=== PATIENT | female | born 1960 | race Two or more races ===

== ENCOUNTER 2020-08-10 00:40 | Emergency (ER) | payer MEDICAID, SELFPAY ==
[2020-08-10 00:56] VITALS: PULSE 84; RESP 75; TEMP 37.2; O2SAT 95; BMI 31.8
[2020-08-10 04:00] VITALS: BP 144/64; PULSE 84; RESP 75; O2SAT 97
[2020-08-10 04:04] LABS: Glucose Urine UA NEG (NEG); Leukocyte Esterase Urine NEG (NEG); Nitrite Urine NEG (NEG); Specific Gravity - Urine >= 1.030 (1.005-1.025); Urine Blood NEG (NEG); Urine Ketones NEG (NEG); Urine Protein NEG (NEG-TRACE)
[2020-08-10 04:09] LABS: Appearance Urine CLEAR; Color Urine YELLOW; UPreg QC Valid YES; Urine Pregnancy NEGATIVE (NEGATIVE)
--- NOTE | 2020-08-10 04:23 | ED_ITS ---
HPI - Female Genitourinary General Chief complaint: Urogenital-Female Stated complaint: hypertension Time Seen by Provider: 08/10/20 02:11 Source: patient Mode of arrival: EMS History of Present Illness HPI Narrative: This is a 60-year-old female who states that she has been having some urinary difficulties since yesterday without associated fevers, chills, nausea, vomiting, chest pain/palpitations. Related Data Allergies Allergy/AdvReac Type Severity Reaction Status Date / Time No Known Allergies Allergy Verified 08/10/20 01:05 [No Known Allergies*] Review of Systems Review of Systems: Pertinent positives and negatives as stated in HPI 10 point review of systems otherwise negative. PMFSH Past Medical History Source: nursing notes reviewed Social History Social History Alcohol intake: unknown Smoking Status: Unknown if ever smoked Use of substances other than those prescribed or required for medical reasons: No Advance Directives: No Advance Directives Information Provided: No Physical Exam Vital Signs: Vital Signs: Last Vital Signs Temp 98.9 F 08/10/20 00:56 Pulse 84 08/10/20 04:00 Resp 75 H 08/10/20 04:00 BP 144/64 H 08/10/20 04:00 Pulse Ox 97 08/10/20 04:00 Body Mass Index 31.8 VITAL SIGNS: Reviewed. GENERAL: Well developed, well nourished, in no acute distress. OROPHARYNX: no oral lesions noted, posterior pharynx clear and non-erythematous without noted tonsillar enlargement/erythema/exudates NECK: Supple, no adenopathy LUNGS: Normal breath sounds. No adventitious sounds or accessory muscle use. SpO2<97> CARDIOVASCULAR: Regular rate and rhythm without noted murmurs, no JVD or lower extremity edema. ABDOMEN: Soft, non-tender, non-distended with bowel sounds. No rigidity. No guarding. No palpable masses or hernias noted NEUROLOGIC: Alert and oriented x 4. Course Course Course Narrative: 60-year-old female with history and clinical presentation suggestive of possible UTI. On review of all investigations there are no acute findings. These results were discussed with the patient at bedside and she was discharged home in stable condition. MDM - Female Genitourinary Lab Data Result diagrams: 08/10/20 05:40 08/10/20 05:40 Labs: Lab Results 08/10/20 08/10/20 08/10/20 Range/Units 03:19 05:40 05:40 WBC 9.0 (4.8-10.8) X10*3/uL RBC 5.35 (4.20-5.50) X10*6/uL Hgb 14.2 (12.0-16.0) g/dl Hct 45.3 (37-47) % MCV 84.7 (80-98) fL MCH 26.5 L (27.0-33.0) pg MCHC 31.3 (31.0-35.0) g/dl RDW 13.8 (11.0-16.0) % Plt Count 282 (160-400) X10*3/uL MPV 9.4 (9.4-12.3) fL Immature Gran % (Auto) 0.1 (0.0-0.4) % Neut % (Auto) 44.6 L (45-73) % Lymph % (Auto) 48.2 H (20-40) % Hart % (Auto) 6.0 (2-11) % Eos % (Auto) 0.9 (0-4) % Baso % (Auto) 0.2 (0-2) % Lymph # (Auto) 4.4 (1.2-4.9) X10*3/uL Hart # (Auto) 0.5 (0.1-1.2) X10*3/uL Eos # (Auto) 0.1 (0.0-0.4) X10*3/uL Baso # (Auto) 0.0 (0.0-0.2) X10*3/uL Abs Immat Gran (auto) 0.01 (0.00-0.03) X10*3/uL Absolute Neuts (auto) 4.0 (2.0-8.3) X10*3/uL Absolute Nucleated RBC 0.000 (0.0-0.012) X10*3/uL Nucleated RBC % (auto) 0.0 (0.0-0.2) /100WBC Sodium 139 (135-145) mmol/L Potassium 4.2 (3.3-5.1) mmol/l Chloride 105 (96-108) mmol/L Carbon Dioxide 28 (22-29) mmol/L Anion Gap 10 L (12-20) BUN 18 H (9-16) mg/dL Creatinine 1.37 (0.5-1.4) mg/dL Estim Creat Clear Calc 35.2 Estimated GFR 40 Random Glucose 142 H (60-115) mg/dL Calcium 9.1 (8.4-10.2) mg/dL Total Bilirubin 0.3 (0.0-1.0) mg/dL AST 15 (5-31) U/L ALT 17 (0-31) U/L Alkaline Phosphatase 141 H (39-117) U/L Total Protein 6.9 (6.5-8.0) g/dL Albumin 3.8 (3.5-5.0) g/dL Urine Color YELLOW Urine Appearance CLEAR Urine pH 6.0 (5.0-8.0) Ur Specific [place] >= 1.030 H (1.005-1.025) Urine Protein NEG (NEG-TRACE) MG/DL Urine Glucose (UA) NEG (NEG) MG/DL Urine Ketones NEG (NEG) MG/DL Urine Blood NEG (NEG) Urine Nitrite NEG (NEG) Ur Leukocyte Esterase NEG (NEG) Urine Test NEGATIVE (NEGATIVE) Discharge Plan Discharge Clinical Impression: Dysuria Patient Disposition: Home, Self-Care Instructions: Dysuria (ED) Additional Instructions: Your evaluated for dysuria here in the emergency department today but your urine was noted to be negative for evidence of infection and your lab work was within normal limits. Please follow-up with your primary care provider for further evaluation outpatient management. Referrals: [facility] [Primary Care Provider] - 2 days (Please re-evaluate and manage for dysuria.) Print Language: Ecuadorean
[2020-08-10 05:48] LABS: Basophils Percent Auto 0.2 % (0-2); Eosinophils Absolute Auto 0.1 X10*3/uL (0.0-0.4); Eosinophils Percent Auto 0.9 % (0-4); Hematocrit 45.3 % (37-47); Hemoglobin 14.2 g/dl (12.0-16.0); Imm Gran Abs Auto 0.01 X10*3/uL (0.00-0.03); Imm Gran Pct Auto 0.1 % (0.0-0.4); Lymphocytes Absolute Auto 4.4 X10*3/uL (1.2-4.9); Lymphocytes Percent Auto 48.2 % (20-40); MANUAL DIFF FLAG NO; Mean Corpuscular HGB Conc 31.3 g/dl (31.0-35.0); Mean Corpuscular Hemoglobin 26.5 pg (27.0-33.0); Mean Corpuscular Volume 84.7 fL (80-98); Mean Platelet Volume 9.4 fL (9.4-12.3); Monocytes Absolute Auto 0.5 X10*3/uL (0.1-1.2); Neutrophils Percent Auto 44.6 % (45-73); Platelet Count 282 X10*3/uL (160-400); Red Blood Count 5.35 X10*6/uL (4.20-5.50); Red Cell Distribution Width 13.8 % (11.0-16.0)
[2020-08-10 06:00] VITALS: BP 150/84; PULSE 63; RESP 15; O2SAT 95
[2020-08-10 06:14] LABS: Alanine Aminotransferase 17 U/L (0-31); Albumin Level 3.8 g/dL (3.5-5.0); Alkaline Phosphatase 141 U/L (39-117); Anion Gap 10 (12-20); Aspartate Amino Transferase 15 U/L (5-31); Bilirubin Total 0.3 mg/dL (0.0-1.0); Blood Urea Nitrogen 18 mg/dL (9-16); Calcium 9.1 mg/dL (8.4-10.2); Carbon Dioxide 28 mmol/L (22-29); Chloride 105 mmol/L (96-108); Creatinine Clr Calc Pharmacy 35.2; Estimated Glomerular Filt Rate 40; Glucose Random 142 mg/dL (60-115); Potassium 4.2 mmol/l (3.3-5.1); Sodium 139 mmol/L (135-145); Total Protein 6.9 g/dL (6.5-8.0)
== END 2020-08-10 07:08 | disposition home or self-care (01) ==
PROVIDERS: Emergency Provider Student in an Organized Health Care Education/Training Program
DX: R30.0 Dysuria (principal)
CPT/HCPCS: 36415; 80053; 81003; 81025; 85025; 99283; 99284

== ENCOUNTER 2020-09-20 04:22 | Emergency (ER) | payer MEDICAID, SELFPAY ==
[2020-09-20 05:27] VITALS: BP 139/84; BP 158/60; PULSE 84; RESP 15; TEMP 37; O2SAT 98; BMI 25.4
[2020-09-20 05:43] VITALS: BP 129/84; PULSE 76; RESP 15; O2SAT 94
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
[2020-09-20 06:59] LABS: COVID-19 Test Negative (Negative); IDNOW Serial# 9DD0AD1C
--- NOTE | 2020-09-20 08:28 | PC.NURSE ---
REPORT FROM [facility] AT [facility]. PT RESTING. AWAITING [facility] DUARTE. TOOK OWN METHADONE THIS AM SUPPLIED BY ASSISTED PER REPORT/PT. ATE BREAKFAST
--- NOTE | 2020-09-20 09:25 | MHC.CARE ---
CARE team called [facility] to inquire if referral was rec and they took referring info and confirmed receipt with plans to see.
[2020-09-20 12:45] VITALS: BP 162/101; PULSE 70; RESP 18; TEMP 35.7
--- NOTE | 2020-09-20 16:47 | MHC.CARE ---
CARE team contacted [facility] re: pt who was referred for evaluation at 9:30 am. [facility] reported that they will not have a clinician available until after 5:30 or later. CARE team will assume responsibility for evaluation pt. [facility] notified [facility]. Urinalysis and Toxicology screen had not been collected yet as of 16:30. Request was that made urine sample be obtained in order to medically clear pt for evaluation.
[2020-09-20 17:11] VITALS: BP 175/100; PULSE 72; RESP 20; TEMP 37.1; O2SAT 98
[2020-09-20 17:17] LABS: Glucose Urine UA 500 MG/DL (NEG); Leukocyte Esterase Urine 1+ (NEG); Nitrite Urine NEG (NEG); Specific Gravity - Urine >= 1.030 (1.005-1.025); UACC Culture Trigger YES; Urine Blood 2+ (NEG); Urine Ketones NEG (NEG); Urine Protein NEG (NEG-TRACE)
[2020-09-20 17:21] LABS: Appearance Urine CLEAR; Color Urine STRAW
[2020-09-20 17:40] LABS: Amphetamine Screen Urine Not Detected (Not Detect); Barbiturates, Urine Not Detected (Not Detect); Benzodiazepines Screen Urine Not Detected (Not Detect); Cannabinoid Screen Urine Not Detected (Not Detect); Cocaine Screen Urine POSITIVE (Not Detect); Opiate Screen Urine POSITIVE (Not Detect); Phencyclidine Screen Urine Not Detected (Not Detect)
[2020-09-20 17:47] LABS: Bacteria Urine 3+ /LPF; Squamous Epithelial Cell Urine 3+ /LPF
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
[2020-09-21 01:14] VITALS: BP 147/78; PULSE 66; RESP 18; TEMP 36; O2SAT 100
[2020-09-21 06:00] VITALS: RESP 16
[2020-09-21 09:18] VITALS: BP 141/92; PULSE 75; TEMP 35.9; O2SAT 96
[2020-09-21 10:29] VITALS: BP 141/92; PULSE 108
--- NOTE | 2020-09-21 10:37 | PC.NURSE ---
methadone confirmed and given, nad, awaiting CARE team to assist w placement in intermediate, pt pleasant and cooperative
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
--- NOTE | 2020-09-21 11:23 | PC.NURSE ---
denies si and states that she would never hurt herself due to religeous reasons and that when she said junior she was feeling hopeless but didn't really mean it
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
== END 2020-09-21 15:13 | disposition home or self-care (01) ==
PROVIDERS: Emergency Provider Emergency Medicine
DX: F33.1 Major depressive disorder, recurrent, moderate (principal); R45.851 Suicidal ideations; I10 Essential (primary) hypertension; Z20.822 Contact with and (suspected) exposure to COVID-19; Z79.899 Other long term (current) drug therapy; Z71.89 Other specified counseling
CPT/HCPCS: 36415; 80307; 81001; 81003; 87086; 87635; 99284; 99285

== ENCOUNTER 2021-04-24 15:28 | Outpatient (REF) | payer MEDICAID, SELFPAY ==
--- NOTE | ~2021-04-24 | XR_ITS ---
EXAMINATION: XR HIP, RIGHT XR RIBS, RIGHT XR THORACIC SPINE CLINICAL INFORMATION: Pleurodynia, back and abdominal pain. Right hip pain. COMPARISON: CT chest of 10/18/2017 TECHNIQUE: AP pelvis and 2 views of the right hip, AP and lateral views of the thoracic spine, frontal view chest with 3 views right ribs. FINDINGS: AP film of the pelvis does not demonstrate any evidence of acute fracture or diastasIs. There is some degenerative change with some sclerosis and spurring of the sacroiliac joints bilaterally but without evidence of fusion or widening. Hip joint spaces appear maintained. There is scoliosis of the lumbar spine, convex left with what appears to be sacralization left side of L5 as well as disc space narrowing L4-L5 and multilevel spurring with facet arthropathy. Two views of the right hip do not demonstrate any evidence of acute fracture or dislocation. Hip joint space is maintained. No abnormal lytic or sclerotic lesions identified. No evidence of femoral head collapse. AP and lateral views of the thoracic spine demonstrate scoliosis, convex right. No definite acute fracture is evident. Marginal spurring is seen. No abnormal paraspinal line bulge is appreciated. Disc spaces appear generally maintained. AP film of the chest does not demonstrate any evidence of acute parenchymal disease, pneumothorax, or pleural effusion. Heart normal size. No evidence of pulmonary edema. Thoracic spine scoliosis, convex right. No acute displaced right rib fracture is appreciated. XR/XR thoracic spine 2V IMPRESSION: Scoliosis of the thoracic and lumbar spine with significant degenerative change of the lumbar spine and with partial sacralization left side of L5. No significant bony abnormality of the AP pelvis and right hip. No acute parenchymal disease within the chest and no displaced rib fracture or destructive bony lesion identified.
--- NOTE | ~2021-04-24 | XR_ITS ---
EXAMINATION: XR HIP, RIGHT XR RIBS, RIGHT XR THORACIC SPINE CLINICAL INFORMATION: Pleurodynia, back and abdominal pain. Right hip pain. COMPARISON: CT chest of 10/18/2017 TECHNIQUE: AP pelvis and 2 views of the right hip, AP and lateral views of the thoracic spine, frontal view chest with 3 views right ribs. FINDINGS: AP film of the pelvis does not demonstrate any evidence of acute fracture or diastasIs. There is some degenerative change with some sclerosis and spurring of the sacroiliac joints bilaterally but without evidence of fusion or widening. Hip joint spaces appear maintained. There is scoliosis of the lumbar spine, convex left with what appears to be sacralization left side of L5 as well as disc space narrowing L4-L5 and multilevel spurring with facet arthropathy. Two views of the right hip do not demonstrate any evidence of acute fracture or dislocation. Hip joint space is maintained. No abnormal lytic or sclerotic lesions identified. No evidence of femoral head collapse. AP and lateral views of the thoracic spine demonstrate scoliosis, convex right. No definite acute fracture is evident. Marginal spurring is seen. No abnormal paraspinal line bulge is appreciated. Disc spaces appear generally maintained. AP film of the chest does not demonstrate any evidence of acute parenchymal disease, pneumothorax, or pleural effusion. Heart normal size. No evidence of pulmonary edema. Thoracic spine scoliosis, convex right. No acute displaced right rib fracture is appreciated. XR/XR ribs RT min 3V w CXR1V IMPRESSION: Scoliosis of the thoracic and lumbar spine with significant degenerative change of the lumbar spine and with partial sacralization left side of L5. No significant bony abnormality of the AP pelvis and right hip. No acute parenchymal disease within the chest and no displaced rib fracture or destructive bony lesion identified.
== END 2021-04-24 15:29 | disposition home or self-care (01) ==
LOC: HO.XRAY 15:28
PROVIDERS: PCP Registered Nurse Community Health; Visit Provider Internal Medicine
DX: R07.81 Pleurodynia (principal); R10.9 Unspecified abdominal pain
CPT/HCPCS: 71101; 72070; 73502

== ENCOUNTER 2021-09-17 10:30 | Emergency (ER) | payer MEDICAID, SELFPAY ==
--- NOTE | ~2021-09-17 | XR_ITS ---
EXAMINATION: X-RAY LUMBAR SPINE X-RAY SACRUM AND COCCYX CLINICAL INFORMATION: Fall, with pain COMPARISON: CT of the abdomen and pelvis 07/12/2019 TECHNIQUE: 3 views of the lumbar spine 3 views of the sacrum and coccyx FINDINGS: There is a left convex curvature of the lumbar spine. No acute fracture or dislocation. There is intervertebral disc space narrowing with endplate osteophytes at L2-L3, L3-L4, and L4-L5. There is facet arthropathy in the lower lumbar spine. No spondylolysis or spondylolisthesis. The sacrum and coccyx are intact without acute fracture or dislocation. The sacroiliac joint spaces are preserved. The paravertebral soft tissues are normal. There are surgical clips in the right upper quadrant from prior cholecystectomy. XR/XR sacrum coccyx min 2V IMPRESSION: No acute bony abnormality of the lumbar spine. Mild to moderate degenerative changes. No acute bony abnormality of the sacrum and coccyx.
--- NOTE | ~2021-09-17 | XR_ITS ---
EXAMINATION: X-RAY LUMBAR SPINE X-RAY SACRUM AND COCCYX CLINICAL INFORMATION: Fall, with pain COMPARISON: CT of the abdomen and pelvis 07/12/2019 TECHNIQUE: 3 views of the lumbar spine 3 views of the sacrum and coccyx FINDINGS: There is a left convex curvature of the lumbar spine. No acute fracture or dislocation. There is intervertebral disc space narrowing with endplate osteophytes at L2-L3, L3-L4, and L4-L5. There is facet arthropathy in the lower lumbar spine. No spondylolysis or spondylolisthesis. The sacrum and coccyx are intact without acute fracture or dislocation. The sacroiliac joint spaces are preserved. The paravertebral soft tissues are normal. There are surgical clips in the right upper quadrant from prior cholecystectomy. XR/XR lumbar spine 2-3V IMPRESSION: No acute bony abnormality of the lumbar spine. Mild to moderate degenerative changes. No acute bony abnormality of the sacrum and coccyx.
[2021-09-17 10:40] VITALS: BP 152/88; PULSE 79; O2SAT 95
[2021-09-17 10:46] VITALS: BP 146/78; PULSE 79; RESP 18; TEMP 36.9; O2SAT 95; BMI 28.9
[2021-09-17] MEDS: Ketorolac Tromethamine 30 MG/ML VIAL IM (11:05)
--- NOTE | 2021-09-17 11:39 | ED_ITS ---
HPI - Back Pain/Injury General Chief Complaint: Back Pain/Injury Stated Complaint: FALL W/BACK PAIN DAYS AGO Time Seen by Provider: 09/17/21 10:39 Source: patient and EMS Mode of arrival: EMS Limitations: no limitations History of Present Illness HPI Narrative: Patient is a 61 year old female presenting to the emergency department today with low back pain. Patient states that yesterday, she was cleaning her windows in her home when she fell back and hit her back against something. Patient states that she always has difficulty walking and uses a walker at her baseline. Patient describes the pain as being low in her back. Patient denies hitting her head in the incident. Patient denies any other injuries from the incident. Patient denies any dizziness, lightheadedness, abdominal pain, nausea, vomiting, fever, chills, blurry vision, double vision, loss of vision, chest pain, difficulty breathing, shortness of breath, night sweats, pain with urination, increased urinary frequency, increased urinary urgency, blood in her urine or stool, syncope or a near syncopal episode, recent trauma or falls, bowel incontinence, bladder incontinence, bowel retention, bladder retention, or any other complaints at this time. MD elicited complaint: back pain, back injury and fall Onset (ago): day(s) Timing: intermittent Similar Symptoms Previously: Yes Quality: dull Location: lumbar spine Radiation: none Exacerbating factors: none Relieving factors: none Context: fall Associated symptoms: denies other symptoms Work related injury: No Related Data Allergies Allergy/AdvReac Type Severity Reaction Status Date / Time No Known Allergies Allergy Verified 09/17/21 10:50 Review of Systems Verdana 4l Constitutional: Verdana 4d Constitutional: Verdana 4d Verdana 4d Reports no additional constitutional complaints, Denies chills, Denies fever(s) and Denies night sweats Verdana 4l Eyes: Verdana 4d Verdana 4d Eyes: Verdana 4d Reports no additional eye complaints, Denies blurry vision, Denies change in vision, Denies diplopia, Denies eye discharge, Denies loss of vision and Denies eye pain Verdana 4l ENT: Verdana 4d Denies dizziness Verdana 4l Cardiovascular: Verdana 4d Cardiovascular: Verdana 4d Verdana 4d Reports no additional cardiovascular complaints, Denies chest pain, Denies lightheadedness, Denies Loss of Consciousness and Denies dyspnea Verdana 4l Respiratory: Verdana 4d Verdana 4d Respiratory: Verdana 4d Reports no additional respiratory complaints and Denies dyspnea Verdana 4l Gastrointestinal: Verdana 4d Gastrointestinal: Verdana 4d Verdana 4d Reports no additional gastrointestinal complaints, Denies abdominal pain, Denies melena, Denies hematochezia, Denies change in bowel habits and Denies change in stool character Verdana 4l Genitourinary: Verdana 4d Verdana 4d Genitourinary: Verdana 4d Denies hematuria, Denies urinary frequency, Denies dysuria, Denies urinary incontinence, Denies urinary hesitancy and Denies urinary urgency Verdana 4l Musculoskeletal: Verdana 4d Musculoskeletal: Verdana 4d Verdana 4d Reports no additional musculoskeletal complaints, Reports abnormal gait (per her baseline of walking with a walker), Reports back pain, Denies numbness and Denies tingling Verdana 4l Neurologic: Verdana 4d Reports abnormal gait (per her baseline of walking with a walker), Denies dizziness, Denies loss of vision, Denies numbness and Denies tingling Verdana 4l Psychiatric: Verdana 4d Verdana 4d Psychiatric: Verdana 4d Reports no additional psychiatric complaints Verdana 4l Endocrine: Verdana 4d Verdana 4d Endocrine: Verdana 4d Reports no additional endocrine complaints Verdana 4l Hematologic/Lymphatic: Verdana 4d Hematologic/Lymphatic: Verdana 4d Verdana 4d Reports no additional hematologic/lymphatic complaints Verdana 4l Allergic/Immunologic: Verdana 4d Allergic/Immunologic: Verdana 4d Verdana 4d Reports no additional allergic/immunologic complaints [facility] Past Medical History Attestation statement: The following information was validated with the patient. Source: old records reviewed Medical History No known health problems Social History Social History Advance Directives: No Advance Directives Information Provided: No Patient : No Physical Exam Verdana 4l Vital Signs: Verdana 4d Verdana 4d Vital Signs: Verdana 4d Verdana 4Bd Last Vital Signs Verdana 4d Wrapper Selector New 4d Wrapper Selector New 4d Temp 98.5 F 09/17/21 10:46 Wrapper Selector New 4d Pulse 79 09/17/21 10:46 New 4d Resp 17 09/17/21 11:47 BP 146/78 H 09/17/21 10:46 Pulse Ox 95 09/17/21 10:46 BMI result Body Mass Index 28.9 Const: General: cooperative, no acute distress, alert and awake Nutritional Appearance: well nourished Orientation/consciousness: patient oriented x3 Limitations: no limitations HENMT: Head: Yes normal to inspection and Yes atraumatic Ears: hearing grossly normal bilaterally and external ears normal General nose exam: Normal external nose present, no nasal discharge noted and no epistaxis Face and sinus: Yes normal facial exam, No abrasion and No laceration Mouth: Normal oral and palatal mucosa present, no drooling and no muffled voice Eyes: General: appearance normal, both eyes and all related structures Periorbital: periorbital findings normal Eyelids: Yes eyelids normal Conjunctivae: conjunctivae normal Pupils: Equal, round and reactive pupils present EOM: EOMs intact bilaterally Neck: Neck: Yes normal visual inspection, Yes full ROM and Yes no lymphadenopathy Chest: Chest palpation & inspection: normal inspection of the chest Resp: Effort & Inspection: normal respiratory effort and able to speak in complete sentences Auscultation: clear to auscultation bilaterally Cardio: Rate: regular rate Rhythm: regular rhythm GI: Inspection: Yes normal to inspection Neuro: General: patient oriented x3 and moves all extremities Cranial nerves: Yes Equal, round and reactive pupils present Cognition (Neuro): normal cognition Motor exam (neuro): 5/5 motor strength present throughout Sensory Exam: Normal double simultaneous stimulation for sensation Coordination: [id number] test normal Extrem: General: Yes normal to inspection, Yes full ROM and Yes capillary refill normal Psych: Appearance: grossly normal Mental Status: mental status grossly normal Affect: normal affect Attitude: cooperative Thought process: Normal thought process present Thought content: Normal thought content present Insight: Good insight present (Psych) MDM - Back Pain/Injury MDM Narrative Medical decision making narrative: Patient is a 61 year old female presenting to the emergency department today with low back pain after a fall. Patient's physical exam was unremarkable. Patient's lumbar and coccyx x-rays showed no acute process. I explained my physical exam findings as well as all test results to the patient. I answered all questions asked by the patient. Patient received IM Toradol which she stated helped her symptoms significantly. I stressed the importance of the patient taking her medication as prescribed. I stressed the importance of the patient following up with her primary care provider. I stressed the importance of the patient returning to the emergency department immediately if her symptoms were to worsen or if she were to develop any dizziness, shortness of breath, difficulty breathing, chest pain, blurry vision, loss of vision, nausea, vomiting, abdominal pain, fever, chills, back pain, or any other complaints. Patient verbalized agreement and understanding with this treatment plan and discharge. Differential Diagnosis Differential diagnosis: Likely strain of lumbar region (lumbar contusion, fall) Medical Records Attestation: I reviewed the patient's medical records. Imaging Data lumbar and coccyx x-rays: Attestation: I personally reviewed and interpreted this imaging study as follows: My impression: No acute fracture in the lumbar or coccyx spine. Radiologist's impression: EXAMINATION: X-RAY LUMBAR SPINE X-RAY SACRUM AND COCCYX CLINICAL INFORMATION: Fall, with pain? COMPARISON: CT of the abdomen and pelvis 07/12/2019? TECHNIQUE: 3 views of the lumbar spine 3 views of the sacrum and coccyx? FINDINGS: There is a left convex curvature of the lumbar spine. No acute fracture or dislocation. There is intervertebral disc space narrowing with endplate osteophytes at L2-L3, L3-L4, and L4-L5. There is facet arthropathy in the lower lumbar spine. No spondylolysis or spondylolisthesis. The sacrum and coccyx are intact without acute fracture or dislocation. The sacroiliac joint spaces are preserved. The paravertebral soft tissues are normal. There are surgical clips in the right upper quadrant from prior cholecystectomy. IMPRESSION: No acute bony abnormality of the lumbar spine. Mild to moderate degenerative changes. ? No acute bony abnormality of the sacrum and coccyx.? Dictated By: LEXIE MICHAELS MD Signed By: Electronically signed by LEXIE MICHAELS MD Discharge Plan Discharge Clinical Impression: Back pain Patient Disposition: Home, Self-Care Instructions: Acute Low Back Pain (ED) Additional Instructions: Follow up with your primary care provider. Return to the emergency department immediately if your symptoms worsen or if you develop any dizziness, shortness of breath, difficulty breathing, chest pain, blurry vision, loss of vision, nausea, vomiting, abdominal pain, fever, chills, back pain, or any other complaints. Referrals: [place],[facility] [Primary Care Provider] - 2 days Interventions: ED Discharge Assessment Last Done: 09/17/21 11:51 Discharge Date/Time: 09/17/21 11:51 Print Language: Bur[place]ian
[2021-09-17 11:47] VITALS: RESP 17
== END 2021-09-17 11:51 | disposition home or self-care (01) ==
PROVIDERS: Emergency Provider Emergency Medicine
DX: M54.50 Low back pain, unspecified (principal); Z79.899 Other long term (current) drug therapy
CPT/HCPCS: 72100; 72220; 96372; 99283; J1885

== ENCOUNTER 2021-11-23 10:11 | Outpatient (REF) | payer MEDICAID, SELFPAY ==
--- NOTE | ~2021-11-23 | XR_ITS ---
EXAMINATION: XR SHOULDER, LEFT CLINICAL INFORMATION: Injury. COMPARISON: No similar priors. TECHNIQUE: Three views of the left shoulder. FINDINGS: No fracture. Glenohumeral and acromioclavicular alignment is anatomic with normal joint space. No abnormal soft tissue calcifications. Partially imaged interstitial thickening in the lungs, best described on simultaneous chest radiograph. XR/XR shoulder LT min 2V IMPRESSION: Normal left shoulder.
--- NOTE | ~2021-11-23 | XR_ITS ---
EXAMINATION: XR TIBIA AND FIBULA, LEFT CLINICAL INFORMATION: Injury. COMPARISON: None. TECHNIQUE: AP and lateral views of the left tibia and fibula were obtained. FINDINGS: The bones and soft tissues are normal. No fracture. No osseous lesions. XR/XR tibia fibula LT 2V IMPRESSION: Normal left tibia and fibula.
--- NOTE | ~2021-11-23 | XR_ITS ---
EXAMINATION: XR RIBS, LEFT CLINICAL INFORMATION: Injury. COMPARISON: Chest radiograph dated from 04/24/2021. TECHNIQUE: 3 views of the left ribs were obtained. FINDINGS: Stable appearance of the cardiomediastinal silhouette and chronic interstitial thickening. No discrete new focal airspace opacities, pleural effusions or pneumothorax. No evidence of acutely displaced rib fractures. Right upper quadrant surgical clips. XR/XR ribs LT min 3V w CXR1V IMPRESSION: Chronic interstitial thickening. No acute cardiopulmonary findings. No evidence of acutely displaced rib fractures.
== END 2021-11-23 10:12 | disposition home or self-care (01) ==
LOC: HO.XRAY 10:11
PROVIDERS: Absent Provider Registered Nurse Community Health; PCP Registered Nurse Community Health; Visit Provider Emergency Medicine
DX: S29.9XXA Unspecified injury of thorax, initial encounter (principal); S49.92XA Unspecified injury of left shoulder and upper arm, initial encounter; S89.92XA Unspecified injury of left lower leg, initial encounter
CPT/HCPCS: 71101; 73030; 73590

== ENCOUNTER 2022-02-17 23:21 | Emergency (ER) | payer MEDICAID, SELFPAY ==
--- NOTE | 2022-02-18 00:30 | PC.NURSE ---
pt not seen in the waiting room. 2 calls for pt and not present both times in the ed.
[2022-02-18 00:32] VITALS: BMI 21.9
== END 2022-02-18 01:30 | disposition left against medical advice (07) ==
PROVIDERS: Emergency Provider Emergency Medicine
DX: M54.42 Lumbago with sciatica, left side (principal)
CPT/HCPCS: 99281

== ENCOUNTER 2022-02-28 01:27 | Emergency (ER) | payer MEDICAID, SELFPAY ==
--- NOTE | ~2022-02-28 | XR_ITS ---
EXAMINATION: XR CHEST CLINICAL INFORMATION: Chest pain COMPARISON: 11/23/2021 TECHNIQUE: Frontal view of the chest was obtained. FINDINGS: Lung volumes are symmetric. Mild streaky bibasilar opacities favor atelectasis. No additional consolidation is seen. No evidence of pneumothorax, pleural effusion, or pulmonary edema. Cardiac size is within normal limits. Calcification is present at the aortic arch. No acute osseous findings are seen. XR/XR chest 1V IMPRESSION: Subsegmental bibasilar atelectasis.
--- NOTE | ~2022-02-28 | CT_ITS ---
EXAMINATION: CT HEAD WITHOUT CONTRAST CLINICAL INFORMATION: High blood pressure COMPARISON: 10/18/2017 TECHNIQUE: Contiguous axial imaging was performed from the skull base to vertex without intravenous administration of contrast. This CT examination was performed using dose optimization techniques as appropriate, variously including the following: *Automated exposure control *Adjustment of mA and/or kV according to patient size (this includes techniques or standardized protocols for targeted exams where dose is matched to indication/reason for exam; i.e. extremities or head) *Use of iterative reconstruction technique DLP: 757 mGy-cm FINDINGS: There is no evidence of acute intracranial hemorrhage or territorial infarction. No abnormal mass effect or midline shift is seen. [place] to white matter differentiation is well preserved. No extra-axial fluid collections are identified. The ventricles are normal in size. There is mild to moderate periventricular white matter hypoattenuation consistent with chronic small vessel ischemic disease. The osseous structures and soft tissues are normal. The mastoid air cells and visualized portions of the paranasal sinuses are well aerated. CT/CT head/brain wo con IMPRESSION: No acute intracranial pathology.
[2022-02-28 01:36] VITALS: BP 149/76; BP 156/100; PULSE 80; PULSE 96; RESP 18; TEMP 36.8; O2SAT 96; O2SAT 97; BMI 24.7
--- NOTE | 2022-02-28 01:41 | ECG_ITS ---
Test Reason : chest pain Blood Pressure : / mmHG Vent. Rate : 076 BPM Atrial Rate : 076 BPM P-R Int : 132 ms QRS Dur : 082 ms QT Int : 412 ms P-R-T Axes : 049 047 042 degrees QTc Int : 463 ms Normal sinus rhythm Minimal voltage criteria for LVH, may be normal variant ( Sokolow-Viveros ) Borderline ECG When compared with ECG of 17-NOV-2019 10:32, No significant change was found Referred By: Generic ED Physician Electronically Signed By:Praveen Nicole
[2022-02-28 02:20] LABS: Basophils Percent Auto 0.3 % (0-2); Eosinophils Absolute Auto 0.1 X10*3/uL (0.0-0.4); Eosinophils Percent Auto 0.8 % (0-4); Hematocrit 43.5 % (37.0-47.0); Hemoglobin 13.8 g/dl (12.0-16.0); Imm Gran Abs Auto 0.02 X10*3/uL (0.00-0.03); Imm Gran Pct Auto 0.2 % (0.0-0.4); Lymphocytes Absolute Auto 3.9 X10*3/uL (1.2-4.9); Lymphocytes Percent Auto 43.4 % (20-40); MANUAL DIFF FLAG NO; Mean Corpuscular HGB Conc 31.7 g/dl (31.0-35.0); Mean Corpuscular Hemoglobin 26.8 pg (27.0-33.0); Mean Corpuscular Volume 84.5 fL (80.0-98.0); Mean Platelet Volume 9.1 fL (9.4-12.3); Monocytes Absolute Auto 0.6 X10*3/uL (0.1-1.2); Monocytes Percent Auto 6.1 % (2-11); Neutrophils Absolute Auto 4.4 x10*3/uL (2.0-8.3); Neutrophils Percent Auto 49.2 % (45-73); Platelet Count 267 X10*3/uL (160-400); Red Blood Count 5.15 X10*6/uL (4.20-5.50); Red Cell Distribution Width 13.4 % (11.0-16.0)
[2022-02-28 02:35] LABS: Anion Gap 14 (12-20); Blood Urea Nitrogen 19 mg/dL (9-16); Calcium 9.4 mg/dL (8.4-10.2); Carbon Dioxide 20 mmol/L (22-29); Chloride 113 mmol/L (96-108); Creatinine Clr Calc Pharmacy 37.3; Estimated Glomerular Filt Rate 42; Glucose Random 133 mg/dL (60-115); Potassium 4.2 mmol/L (3.3-5.1); Sodium 143 mmol/L (135-145)
--- NOTE | 2022-02-28 03:57 | ED.CHESTPAIN ---
HPI - Chest Pain General Chief Complaint: Chest Pain Stated Complaint: cp Time Seen by Provider: 02/28/22 03:40 Source: patient Mode of arrival: ambulatory Limitations: no limitations History of Present Illness HPI narrative: Patient comes to the emergency room complaining of a headache, states she has had chest pain for 11 hours. When I spoke to the patient, patient denies any chest pain or shortness of breath. Patient complaining of headache, states she has not taking any medications. Patient states that she takes her medication at home, takes lisinopril 40 mg daily, states that she is compliant with her meds. Before arrival, patient states her blood pressure was above 160 systolic. Patient became concerned and came to the emergency room. Related Data Home Medications Medication Instructions Recorded Confirmed lisinopril 40 mg PO DAILY 09/20/20 09/20/20 Allergies Allergy/AdvReac Type Severity Reaction Status Date / Time No Known Allergies Allergy Verified 02/23/22 12:45 [No Known Allergies*] Review of Systems Review of Systems: Constitutional : No Weight loss, No Fever, No Chills, No Night Sweats, No Fatigue, No Malaise ENT/Mouth : No Hearing loss, No Ear Pain, No Nasal Congestion, No Sinus Pain, No Hoarseness, No sore throat, No Rhinorrhea, No Swallowing Difficulty Eyes: No Eye Pain, No Swelling, No Redness, No Foreign Body, No Discharge, No Vision Changes Cardiovascular : Complaining of chest pain/pressure that self-resolved,, No SOB, No Dyspnea on Exertion, No Orthopnea, No Edema, No Palpitations Respiratory : No Cough, No Sputum, No Wheezing, No Smoke Exposure, No Dyspnea Gastrointestinal : No Nausea, No Vomiting, No Diarrhea, No Constipation, No abdominal Pain, No Hematochezia, No Melena Genitourinary : no irregular bleeding, No Dysuria, No Urinary Frequency, No Hematuria, No Urinary Incontinence, No Urgency, No Flank Pain, No Urinary Flow Changes, No Hesitancy Musculoskeletal : No joint pain, No Myalgias, No Joint Swelling Skin : No Skin Lesions, No rash Neuro : No Weakness, No Numbness, No Paresthesias, No Loss of Consciousness, No Dizziness, complaining of Headache Psych : No Anxiety/Panic, No Depression, No SI/HI/AH/VH, No Social Issues, Heme/Lymph: No Bruising, No Bleeding,No Lymphadenopathy Endocrine : No Polyuria, No Polydipsia, No Temperature Intolerance [facility] Past Medical History Medical History Borderline diabetes Hypertension No known health problems Substance abuse Social History Social History (System 02/23/22 @ 12:45 by Marline Tran) Alcohol intake: unknown Advance Directives: No Physical Exam Vital Signs: Vital Signs: Last Vital Signs Temp 98.3 F 02/28/22 01:36 Pulse 80 02/28/22 01:36 Resp 18 02/28/22 01:36 BP 149/76 H 02/28/22 01:36 Pulse Ox 97 02/28/22 01:36 O2 Del Method 02/28/22 01:36 BMI result Body Mass Index 24.7 Const: Other: Appearance: Alert. Oriented X3. No acute distress. Somnolent, easily arousable Eyes: Pupils equal, round and reactive to light. Seems to have photophobia ENT: Pharynx normal. Neck: Normal inspection. Neck supple. No lymph nodes noted. No crepitus CVS: Normal heart rate and rhythm. Pulses normal. Normal S1 and S2 Respiratory: No respiratory distress. Breath sounds normal. No Wheezing. No rales Abdomen: Soft and nontender. No rigidity. No distention. Skin: Skin warm and dry. Normal skin color. Normal skin turgor. Extremities: No lower extremity edema. No Lacerations. No Rash Neuro: Oriented X 3. No motor deficit. No sensory deficit. Moving all extremities. No slurred speech. CN 2 through 12 grossly intact Psych: calm, cooperative, normal affect Course Course Course Narrative: EKG, troponin negative. Patient no longer having any chest pain. Now, patient complaining of a headache. Head CT pending. Repeat EKG within normal limits. CT scan did not show any acute pathology. Headache was treated with Reglan and IV Toradol. Patient is comfortably, sleeping MDM - Chest Pain Lab Data Result diagrams: 02/28/22 02:15 02/28/22 02:15 Labs: Lab Results 02/28/22 02/28/22 02/28/22 Range/Units 02:15 02:15 02:15 WBC 9.0 (4.8-10.8) X10*3/uL RBC 5.15 (4.20-5.50) X10*6/uL Hgb 13.8 (12.0-16.0) g/dl Hct 43.5 (37.0-47.0) % MCV 84.5 (80.0-98.0) fL MCH 26.8 L (27.0-33.0) pg MCHC 31.7 (31.0-35.0) g/dl RDW 13.4 (11.0-16.0) % Plt Count 267 (160-400) X10*3/uL MPV 9.1 L (9.4-12.3) fL Immature Gran % (Auto) 0.2 (0.0-0.4) % Neut % (Auto) 49.2 (45-73) % Lymph % (Auto) 43.4 H (20-40) % [place] % (Auto) 6.1 (2-11) % Eos % (Auto) 0.8 (0-4) % Baso % (Auto) 0.3 (0-2) % Lymph # (Auto) 3.9 (1.2-4.9) X10*3/uL [place] # (Auto) 0.6 (0.1-1.2) X10*3/uL Eos # (Auto) 0.1 (0.0-0.4) X10*3/uL Baso # (Auto) 0.0 (0.0-0.2) X10*3/uL Abs Immat Gran (auto) 0.02 (0.00-0.03) X10*3/uL Absolute Neuts (auto) 4.4 (2.0-8.3) x10*3/uL Absolute Nucleated RBC 0.000 (0.0-0.012) X10*3/uL Nucleated RBC % (auto) 0.0 (0.0-0.2) /100WBC Sodium 143 (135-145) mmol/L Potassium 4.2 (3.3-5.1) mmol/L Chloride 113 H (96-108) mmol/L Carbon Dioxide 20 L (22-29) mmol/L Anion Gap 14 (12-20) BUN 19 H (9-16) mg/dL Creatinine 1.29 (0.5-1.4) mg/dL Estim Creat Clear Calc 37.3 Estimated GFR 42 Random Glucose 133 H (60-115) mg/dL Calcium 9.4 (8.4-10.2) mg/dL Troponin I High Sens 5.0 (<3.5-17.0) ng/L Imaging Data Head CT: Radiologist's impression: FINDINGS: There is no evidence of acute intracranial hemorrhage or territorial infarction. No abnormal mass effect or midline shift is seen. [place] to white matter differentiation is well preserved. No extra-axial fluid collections are identified. The ventricles are normal in size. There is mild to moderate periventricular white matter hypoattenuation consistent with chronic small vessel ischemic disease. The osseous structures and soft tissues are normal. The mastoid air cells and visualized portions of the paranasal sinuses are well aerated. ? CT/CT head/brain wo con IMPRESSION: No acute intracranial pathology. Discharge Plan Discharge Clinical Impression: Atypical chest pain, Headache Patient Disposition: Home, Self-Care Instructions: Chest Pain (ED), Acute Headache (ED) Additional Instructions: Please follow-up with your primary care physician tomorrow. If you have any worsening or new symptoms, please return to the emergency room or call 911 Prescriptions: No Action lisinopril 40 mg PO DAILY
[2022-02-28] MEDS: Metoclopramide HCl 10 MG/2 ML VIAL IVPUSH (04:32)
--- NOTE | 2022-02-28 05:00 | ECG_ITS ---
Test Reason : CHEST PAIN Blood Pressure : / mmHG Vent. Rate : 075 BPM Atrial Rate : 075 BPM P-R Int : 144 ms QRS Dur : 082 ms QT Int : 424 ms P-R-T Axes : 049 041 042 degrees QTc Int : 473 ms Normal sinus rhythm Possible Left atrial enlargement Borderline ECG When compared with ECG of 28-FEB-2022 01:49, No significant change was found Referred By: Bernice Lopez Electronically Signed By:Praveen Nicole
--- NOTE | 2022-02-28 05:01 | PC.NURSE ---
Pt. c/o increased left sided chest pain. Denies SOB. Provider notified, repeat EKG ordered and completed. Pt. now asleep an intermittently snoring.
[2022-02-28] MEDS: Ketorolac Tromethamine 30 MG/ML VIAL IVPUSH (05:12)
[2022-02-28 05:19] VITALS: BP 168/96; PULSE 77; RESP 16; O2SAT 97
== END 2022-02-28 05:55 | disposition home or self-care (01) ==
PROVIDERS: Emergency Provider Emergency Medicine
DX: R07.89 Other chest pain (principal); R51.9 Headache, unspecified; I10 Essential (primary) hypertension; Z79.899 Other long term (current) drug therapy
CPT/HCPCS: 36415; 70450; 71045; 80048; 84484; 85025; 93005; 96374; 96375; 99284; J1885; J2765

== ENCOUNTER 2022-09-11 20:03 | Inpatient (IN) | payer MEDICAID, SELFPAY ==
--- NOTE | ~2022-09-11 | CT_ITS ---
EXAMINATION: CT HEAD WITHOUT CONTRAST (STROKE PROTOCOL) CLINICAL INFORMATION: Stroke protocol. COMPARISON: CT head 02/28/2022 TECHNIQUE: Contiguous axial imaging was performed from the skull base to vertex without intravenous administration of contrast. This CT examination was performed using dose optimization techniques as appropriate, variously including the following: *Automated exposure control *Adjustment of mA and/or kV according to patient size (this includes techniques or standardized protocols for targeted exams where dose is matched to indication/reason for exam; i.e. extremities or head) *Use of iterative reconstruction technique DLP: 714 mGy-cm. FINDINGS: There is no evidence of acute intracranial hemorrhage or territorial infarction. No abnormal mass-effect or midline shift is seen. [place] to white matter differentiation is well preserved. No extra-axial fluid collections are identified. There is mild to moderate periventricular white matter hypoattenuation consistent with chronic small vessel ischemic disease. There is no osseous abnormality. The mastoid air cells and visualized portions of the paranasal sinuses are well-aerated. CT/CT head for stroke IMPRESSION: No acute intracranial pathology. This critical result was discussed with Dr. Jamil at 2048 hours on 09/11/2022. It was ascertained that the content and urgency of the report was understood at the time of direct communication.
--- NOTE | ~2022-09-11 | MR_ITS ---
EXAMINATION: MR BRAIN WITHOUT CONTRAST CLINICAL INFORMATION: Stroke or right-sided weakness COMPARISON: None. TECHNIQUE: MRI of the brain was obtained using routine sequences without contrast. FINDINGS: Motion degraded examination compromising diagnostic assessment. There is an acute infarct within the lateral left thalamus/posterior limb of the left internal capsule. Extensive patchy and confluent T2 hyperintense foci within the subcortical and periventricular white matter, including along the left greater than right external capsules, and brainstem are nonspecific but may reflect sequelae of marked chronic microvascular ischemia. 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 Chronic lacunar infarcts within the bilateral deep zepeda nuclei and slava. No acute intracranial hemorrhage or extra-axial fluid collection. Mild generalized parenchymal volume loss with prominence of the bilateral ventricular trigones, likely on an ex vacuo basis. No mass lesion, mass effect, or herniation pattern. Normal intracranial arterial and dural venous sinus flow voids. Normal appearance of the midline structures. The orbits are grossly unremarkable. The paranasal sinuses and mastoids are well aerated. Normal marrow signal. MR/MR head/brain wo con IMPRESSION: Acute infarct within the lateral left thalamus/posterior limb of the left internal capsule. Mild volume loss. Extensive white matter disease greater than expected for patient age above may reflect severe chronic microangiopathy. Multiple lacunar infarcts. Right-sided Wallerian degeneration.
--- NOTE | ~2022-09-11 | CT_ITS ---
EXAMINATION: CTA OF THE HEAD AND NECK CLINICAL INFORMATION: Right-sided weakness. COMPARISON: Head CT on 09/11/2022. TECHNIQUE: Test bolus sequences followed by intravenous administration 70 mL of Omnipaque 350. Helical imaging was performed in the axial plane from the mediastinum to the skull vertex. Delayed postcontrast imaging of the head was also performed. The data was processed at the interventional radiology technologist's workstation for generation of MIP sequences. Three-dimensional volume rendered reformatted images were also generated at an offline 3-D workstation. Stenoses are assessed in accordance with NASCET criteria unless otherwise indicated. This CT examination was performed using dose optimization techniques as appropriate, variously including the following: *Automated exposure control *Adjustment of mA and/or kV according to patient size (this includes techniques or standardized protocols for targeted exams where dose is matched to indication/reason for exam; i.e. extremities or head) *Use of iterative reconstruction technique DLP: 1521 mGy-cm. FINDINGS: CTA neck: The imaged aortic arch and origins of the great vessels are normal. The common carotid arteries are widely patent. The carotid bifurcations are normal. The cervical internal carotid arteries are normal. The vertebral arteries opacify normally and are of normal caliber. The soft tissues of the neck are unremarkable. The left maxillary sinus is atelectatic but aerated. The imaged portions of the lungs are relatively clear with mild subsegmental atelectatic changes in the anterior left upper lobe. There are [id number] emphysematous changes in the lungs. CTA head: The intradural vertebral arteries and basilar artery are normal. The posterior cerebral arteries are widely patent. The internal carotid arteries are of normal caliber. The ELIZABETH and MCA vascular complexes bilaterally are normal. There is no abnormal parenchymal or leptomeningeal enhancement. The venous sinuses opacify normally. CT/CT angio head neck stroke IMPRESSION: Normal CT angiogram of the head and neck.
[2022-09-11 20:07] VITALS: BP 191/108; PULSE 80; RESP 18; TEMP 36.6; O2SAT 98; BMI 33.0
[2022-09-11 20:20] LABS: Glucose, Whole Blood 152 mg/dL (60-115)
--- NOTE | 2022-09-11 20:20 | ECG_ITS ---
Test Reason : CP Blood Pressure : / mmHG Vent. Rate : 071 BPM Atrial Rate : 071 BPM P-R Int : 142 ms QRS Dur : 082 ms QT Int : 396 ms P-R-T Axes : 040 026 020 degrees QTc Int : 430 ms Normal sinus rhythm Minimal voltage criteria for LVH, may be normal variant ( Sokolow-Viveros ) Borderline ECG When compared with ECG of 28-FEB-2022 04:53, No significant change was found Referred By: Melissa Jamil Electronically Signed By:Praveen Nicole
--- NOTE | 2022-09-11 20:26 | ED_ITS ---
HPI - Neuro Symptoms/Deficit General Chief Complaint: Stroke Stated Complaint: stroke? Time Seen by Provider: 09/11/22 20:20 History of Present Illness HPI Narrative: Patient is a 62-year-old female with a history of hypertension. Borderline diabetes, question high cholesterol presents today with having last known well time being 5-6 p.m. yesterday. Patient at that time was cooking. Subsequently patient went to bed and when she woke up this morning he had weakness to the right side of the face and also some clumsiness to her right hand. Feels her speech is different. Patient came to the ED for further evaluation. Previous history of polysubstance abuse. Patient is currently on methadone. Denies using other types of recreational drugs. Denies any history of [place] in the past. Related Data Home Medications Medication Instructions Recorded Confirmed lisinopril 40 mg PO DAILY 09/20/20 09/20/20 Allergies Allergy/AdvReac Type Severity Reaction Status Date / Time No Known Allergies Allergy Verified 02/23/22 12:45 [No Known Allergies*] Review of Systems Review of Systems: Positive right face weakness positive right arm weakness positive clumsiness positive slight change in speech PMFSH Past Medical History Attestation statement: The following information was validated with the patient. Medical History Borderline diabetes Hypertension No known health problems Substance abuse Social History Social History Alcohol intake: unknown Advance Directives: No Advance Directives Information Provided: No Physical Exam Vital Signs: Vital Signs: Last Vital Signs Temp 97.8 F 09/11/22 20:07 Pulse 80 09/11/22 20:07 Resp 18 09/11/22 20:07 BP 191/108 H 09/11/22 20:07 Pulse Ox 98 09/11/22 20:07 O2 Del Method 09/11/22 20:07 BMI result Body Mass Index 33.0 Appearance: Alert. Oriented X3. No acute distress. Eyes: Pupils equal, round and reactive to light. ENT: Pharynx normal. Neck: Normal inspection. Neck supple. No lymph nodes noted. No crepitus CVS: Normal heart rate and rhythm. Pulses normal. Normal S1 and S2 Respiratory: No respiratory distress. Breath sounds normal. No Wheezing. No rales Abdomen: Soft and nontender. No rigidity. No distention. good BS x4 Skin: Skin warm and dry. Normal skin color. Normal skin turgor. Extremities: No lower extremity edema. Neurovascular intact to all extremities. No Lacerations. No Rash Neuro: Oriented X 3. Positive facial droop on the right side. Positive slightly dysarthric, finger to nose off on the right side. No sensory deficit. Moving all extermities. Slight weakness on movement of the right upper extremity Medications Administered Discontinued Medications Generic Name Dose Route Start Last Admin Trade Name Freq PRN Reason Stop Dose Admin Iohexol 100 ml 09/11/22 20:52 09/11/22 20:52 Iohexol 350 Mg/Ml 100 Ml Infus..Btl IV 09/11/22 20:53 70 ml ONCE ONE Administration Medical Decision Making Medical Decision Making [facility] Narrative: Patient presented today with having right-sided weakness patient complaining of right hand weakness right facial weakness slurred speech CT scan of the head was grossly negative for any acute evidence of bleeding. No mass. No fracture. CTA did not show any large vessel occlusion. Patient's last known well time was yesterday at 18:00. Given this finding. Patient is not a candidate for tPA. NIH stroke scale is a 3. Patient's case discussed with the hospitalist team. Will admit for further evaluation. Currently in stable condition. Differential Diagnosis Differential Diagnoses: The differential diagnosis associated with the presentat ion includes Hypoglycemia, stroke, mass, bleed Admission/Observation Consideration of admission/observation: Escalation of care including admission/observation considered Consult Healthcare Provider Management of the patient was discussed with: Hospitalist Lab Data [facility] Lab Attestation statement: I reviewed the patient's lab results. 09/11/22 20:26 09/11/22 20:26 Labs: Lab Results 09/11/22 09/11/22 09/11/22 Range/Units 20:17 20:26 20:26 WBC 11.5 H (4.8-10.8) X10*3/uL RBC 5.64 H (4.20-5.50) X10*6/uL Hgb 14.6 (12.0-16.0) g/dl Hct 47.4 H (37.0-47.0) % MCV 84.0 (80.0-98.0) fL MCH 25.9 L (27.0-33.0) pg MCHC 30.8 L (31.0-35.0) g/dl RDW 13.8 (11.0-16.0) % Plt Count 282 (160-400) X10*3/uL MPV 9.2 L (9.4-12.3) fL Immature Gran % (Auto) 0.2 (0.0-0.4) % Neut % (Auto) 63.2 (45-73) % Lymph % (Auto) 30.3 (20-40) % [place] % (Auto) 5.7 (2-11) % Eos % (Auto) 0.3 (0-4) % Baso % (Auto) 0.3 (0-2) % Lymph # (Auto) 3.5 (1.2-4.9) X10*3/uL [place] # (Auto) 0.7 (0.1-1.2) X10*3/uL Eos # (Auto) 0.0 (0.0-0.4) X10*3/uL Baso # (Auto) 0.0 (0.0-0.2) X10*3/uL Abs Immat Gran (auto) 0.02 (0.00-0.03) X10*3/uL Absolute Neuts (auto) 7.3 (2.0-8.3) x10*3/uL Absolute Nucleated RBC 0.000 (0.0-0.012) X10*3/uL Nucleated RBC % (auto) 0.0 (0.0-0.2) /100WBC PT 10.0 (10.0-13.1) SEC Whole Blood PT (11.1-13.5) sec INR 0.9 (0.9-1.1) Whole Blood INR (0.9-1.1) APTT 32.3 (26.0-36.4) SEC Sodium (135-145) mmol/L Potassium (3.3-5.1) mmol/L Chloride (96-108) mmol/L Carbon Dioxide (22-29) mmol/L Anion Gap (12-20) BUN (9-16) mg/dL Creatinine (0.5-1.4) mg/dL Estim Creat Clear Calc Estimated GFR POC Glucose 152 H (60-115) mg/dL Random Glucose (60-115) mg/dL Calcium (8.4-10.2) mg/dL Phosphorus (2.7-4.5) mg/dL Magnesium (1.6-2.6) mg/dL Total Creatine Kinase (26-140) U/L Troponin I High Sens (<3.5-17.0) ng/L Ethyl Alcohol mg/dL Influenza Type A (PCR) (Negative) Influenza Type B (PCR) (Negative) RSV RNA Qual (PCR) (Negative) SARS-CoV-2 RNA (RT-PCR) (Negative) 09/11/22 09/11/22 09/11/22 Range/Units 20:26 20:26 20:26 WBC (4.8-10.8) X10*3/uL RBC (4.20-5.50) X10*6/uL Hgb (12.0-16.0) g/dl Hct (37.0-47.0) % MCV (80.0-98.0) fL MCH (27.0-33.0) pg MCHC (31.0-35.0) g/dl RDW (11.0-16.0) % Plt Count (160-400) X10*3/uL MPV (9.4-12.3) fL Immature Gran % (Auto) (0.0-0.4) % Neut % (Auto) (45-73) % Lymph % (Auto) (20-40) % [place] % (Auto) (2-11) % Eos % (Auto) (0-4) % Baso % (Auto) (0-2) % Lymph # (Auto) (1.2-4.9) X10*3/uL [place] # (Auto) (0.1-1.2) X10*3/uL Eos # (Auto) (0.0-0.4) X10*3/uL Baso # (Auto) (0.0-0.2) X10*3/uL Abs Immat Gran (auto) (0.00-0.03) X10*3/uL Absolute Neuts (auto) (2.0-8.3) x10*3/uL Absolute Nucleated RBC (0.0-0.012) X10*3/uL Nucleated RBC % (auto) (0.0-0.2) /100WBC PT (10.0-13.1) SEC Whole Blood PT (11.1-13.5) sec INR (0.9-1.1) Whole Blood INR (0.9-1.1) APTT (26.0-36.4) SEC Sodium 139 (135-145) mmol/L Potassium 4.6 (3.3-5.1) mmol/L Chloride 105 (96-108) mmol/L Carbon Dioxide 25 (22-29) mmol/L Anion Gap 14 (12-20) BUN 25 H (9-16) mg/dL Creatinine 1.00 (0.5-1.4) mg/dL Estim Creat Clear Calc 37.1 Estimated GFR 57 POC Glucose (60-115) mg/dL Random Glucose 108 (60-115) mg/dL Calcium 10.2 D (8.4-10.2) mg/dL Phosphorus 3.2 (2.7-4.5) mg/dL Magnesium 2.1 (1.6-2.6) mg/dL Total Creatine Kinase 214 H (26-140) U/L Troponin I High Sens < 3.5 (<3.5-17.0) ng/L Ethyl Alcohol < 10 mg/dL Influenza Type A (PCR) NEGATIVE (Negative) Influenza Type B (PCR) NEGATIVE (Negative) RSV RNA Qual (PCR) NEGATIVE (Negative) SARS-CoV-2 RNA (RT-PCR) NEGATIVE (Negative) 09/11/22 Range/Units 20:30 WBC (4.8-10.8) X10*3/uL RBC (4.20-5.50) X10*6/uL Hgb (12.0-16.0) g/dl Hct (37.0-47.0) % MCV (80.0-98.0) fL MCH (27.0-33.0) pg MCHC (31.0-35.0) g/dl RDW (11.0-16.0) % Plt Count (160-400) X10*3/uL MPV (9.4-12.3) fL Immature Gran % (Auto) (0.0-0.4) % Neut % (Auto) (45-73) % Lymph % (Auto) (20-40) % [place] % (Auto) (2-11) % Eos % (Auto) (0-4) % Baso % (Auto) (0-2) % Lymph # (Auto) (1.2-4.9) X10*3/uL [place] # (Auto) (0.1-1.2) X10*3/uL Eos # (Auto) (0.0-0.4) X10*3/uL Baso # (Auto) (0.0-0.2) X10*3/uL Abs Immat Gran (auto) (0.00-0.03) X10*3/uL Absolute Neuts (auto) (2.0-8.3) x10*3/uL Absolute Nucleated RBC (0.0-0.012) X10*3/uL Nucleated RBC % (auto) (0.0-0.2) /100WBC PT (10.0-13.1) SEC Whole Blood PT 12.1 (11.1-13.5) sec INR (0.9-1.1) Whole Blood INR 1.0 (0.9-1.1) APTT (26.0-36.4) SEC Sodium (135-145) mmol/L Potassium (3.3-5.1) mmol/L Chloride (96-108) mmol/L Carbon Dioxide (22-29) mmol/L Anion Gap (12-20) BUN (9-16) mg/dL Creatinine (0.5-1.4) mg/dL Estim Creat Clear Calc Estimated GFR POC Glucose (60-115) mg/dL Random Glucose (60-115) mg/dL Calcium (8.4-10.2) mg/dL Phosphorus (2.7-4.5) mg/dL Magnesium (1.6-2.6) mg/dL Total Creatine Kinase (26-140) U/L Troponin I High Sens (<3.5-17.0) ng/L Ethyl Alcohol mg/dL Influenza Type A (PCR) (Negative) Influenza Type B (PCR) (Negative) RSV RNA Qual (PCR) (Negative) SARS-CoV-2 RNA (RT-PCR) (Negative) Independent Interpretation I performed an independent interpretation of an: EKG Interpretation: Patient's EKG showed a sinus pattern heart rate is 70 [place] QRS QT within normal limits there is no acute ST segment elevation noted. External Record Review External record reviewed: Inpatient record Chronic Conditions Patient?s care impacted by: Diabetes and Hypertension Social Determinants Patient?s care significantly limited by Social Determinants of Health including: Problems related to primary support group NIH Stroke Scale Internal: Initial- Upon Arrival Time: 20:32 Level of Consciousness: Alert Level of Consciousness Questions: Answers both questions correctly Level of Consciousness Commands: Performs both tasks correctly Best Gaze: Normal Visual: No visual loss Facial Palsy: Minor paralyis Motor Arm (Right): No drift Motor Arm (Left): No drift Motor Leg (Right): No drift Motor Leg (Left): No drift Limb Ataxia: Present in one limb Sensory: Normal Best Language: No aphasia Dysarthia: Mild to moderate dysarthria Extinction and Inattention: No abnormality Score: 3 Critical Care Time Critical Care Time Critical Care Time: Yes Total Critical Care Time: 40 Attestation: I have personally provided 40 minutes of critical care time exclusive of time spent on separately billable procedures. Time includes review of lab data, radiology results, discussion with consultants, and monitoring for potential decompensation. Interventions were performed as documented above Discharge Plan Discharge Clinical Impression: Cerebrovascular accident Patient Disposition: Admitted As Inpatient Prescriptions: No Action lisinopril 40 mg PO DAILY
[2022-09-11 20:30] LABS: Basophils Percent Auto 0.3 % (0-2); Eosinophils Percent Auto 0.3 % (0-4); Hematocrit 47.4 % (37.0-47.0); Hemoglobin 14.6 g/dl (12.0-16.0); Imm Gran Abs Auto 0.02 X10*3/uL (0.00-0.03); Imm Gran Pct Auto 0.2 % (0.0-0.4); Lymphocytes Absolute Auto 3.5 X10*3/uL (1.2-4.9); Lymphocytes Percent Auto 30.3 % (20-40); MANUAL DIFF FLAG NO; Mean Corpuscular HGB Conc 30.8 g/dl (31.0-35.0); Mean Corpuscular Hemoglobin 25.9 pg (27.0-33.0); Mean Platelet Volume 9.2 fL (9.4-12.3); Monocytes Absolute Auto 0.7 X10*3/uL (0.1-1.2); Monocytes Percent Auto 5.7 % (2-11); Neutrophils Absolute Auto 7.3 x10*3/uL (2.0-8.3); Neutrophils Percent Auto 63.2 % (45-73); Platelet Count 282 X10*3/uL (160-400); Red Blood Count 5.64 X10*6/uL (4.20-5.50); Red Cell Distribution Width 13.8 % (11.0-16.0); White Blood Count 11.5 X10*3/uL (4.8-10.8)
[2022-09-11 20:33] LABS: Prothrombin Time Whole Bld POC 12.1 sec (11.1-13.5)
[2022-09-11 20:38] LABS: INTERNATIONAL NORM RATIO 0.9 (0.9-1.1)
[2022-09-11 20:40] LABS: Partial Thromboplastin Time 32.3 SEC (26.0-36.4)
[2022-09-11 20:42] LABS: Stroke Lab Use COMPLETE
[2022-09-11] MEDS: iohexoL 350 MG/ML 100 ML INFUS..BTL IV (20:52)
[2022-09-11 20:59] LABS: Anion Gap 14 (12-20); Blood Urea Nitrogen 25 mg/dL (9-16); Calcium 10.2 mg/dL (8.4-10.2); Carbon Dioxide 25 mmol/L (22-29); Chloride 105 mmol/L (96-108); Creatinine Clr Calc Pharmacy 37.1; Estimated Glomerular Filt Rate 57; Ethanol < 10 mg/dL; Glucose Random 108 mg/dL (60-115); Magnesium 2.1 mg/dL (1.6-2.6); Phosphorus 3.2 mg/dL (2.7-4.5); Potassium 4.6 mmol/L (3.3-5.1); Sodium 139 mmol/L (135-145)
[2022-09-11 21:00] LABS: Troponin-I High Sensitivity < 3.5 ng/L (<3.5-17.0)
[2022-09-11 21:07] LABS: Influenza A PCR NEGATIVE (Negative); Influenza B PCR NEGATIVE (Negative); Resp Syncy Virus RNA Qual PCR NEGATIVE (Negative); SARS COV2 PCR INHOUSE NEGATIVE (Negative)
[2022-09-11 21:53] LABS: Appearance Urine Clear; Color Urine Yellow; Glucose Urine UA Negative (Negative); Leukocyte Esterase Urine Negative (Negative); Nitrite Urine Negative (Negative); PH 5.5 (5.0-9.0); Urine Blood Negative (Negative); Urine Ketones Negative (Negative); Urine Protein Negative (Neg-Trace)
--- NOTE | 2022-09-11 22:02 | PHA.MEDREC ---
Pharmacy Consult ? Medication Reconciliation Pharmacy has completed the medication reconciliation. Spoke with patient in the ED who was very groggy. She was able to tell me [facility]. She says she is on a blood prsure med, vitamins and metformin. The medications have not been filled since april and metformin has not been filled in the past year.
--- NOTE | 2022-09-11 22:10 | PM.IMHP ---
History of Present Illness Date of Service: 09/11/22 Chief Complaint: Facial droop This is a 62-year-old female with pertinent history of essential hypertension who presents to the emergency department for evaluation of right-sided facial droop. Patient states she woke up this morning and noticed that she had facial droop. Also had clumsiness of her right hand. She thought speech was different. Denies similar history in the past. Denies history of poly substance use. Patient is currently on methadone for opioid use disorder. Patient denies lower extremity weakness, blurry vision, headache. She denies fever, chills, chest discomfort, palpitations, shortness of breath, abdominal pain, changes in urinary or bowel habits. In the emergency department, CT head and CTA negative for acute abnormality Review of Systems Constitutional: Constitutional: Reports no additional constitutional complaints Cardiovascular: Cardiovascular: Reports no additional cardiovascular complaints Respiratory: Respiratory: Reports no additional respiratory complaints Gastrointestinal: Gastrointestinal: Reports no additional gastrointestinal complaints Genitourinary: Genitourinary: Reports no additional female genitourinary complaints Neurologic: Reports Abnormal speech present and Reports focal weakness [facility] Medical History Borderline diabetes Hypertension No known health problems Substance abuse Pertinent family history: No family history of CAD Social History Alcohol intake: unknown Advance Directives: No Advance Directives Information Provided: No Meds Allergies Allergy/AdvReac Type Severity Reaction Status Date / Time No Known Allergies Allergy Verified 02/23/22 12:45 [No Known Allergies*] Active Medications: Current Medications Acetaminophen (Acetaminophen 325 Mg Tablet) 650 mg PO Q6H PRN PRN Reason: Pain, Mild (Pain Scale 1-3) Aspirin (Aspirin 81 Mg Tab.Chew) 81 mg PO ONCE ONE Stop: 09/11/22 22:10 Melatonin (Melatonin 3 Mg Tablet) 6 mg PO BEDTIME PRN PRN Reason: Insomnia Ondansetron HCl (Ondansetron Hcl 4 Mg/2 Ml Vial) 4 mg IVPUSH Q8H PRN PRN Reason: Nausea and Vomiting Home Medications Medication Instructions Recorded Confirmed Last Taken Type cholecalciferol (vitamin D3) 50 1 cap PO DAILY 09/11/22 09/11/22 Unknown History mcg (2,000 unit) capsule (Vitamin D3) lisinopril 40 mg tablet 1 tab PO DAILY 09/11/22 09/11/22 Unknown History Physical Exam Vital Signs and Narrative: Vital Signs: Last Vital Signs Temp 97.8 F 09/11/22 20:07 Pulse 80 09/11/22 20:07 Resp 18 09/11/22 20:07 BP 191/108 H 09/11/22 20:07 Pulse Ox 98 09/11/22 20:07 O2 Del Method 09/11/22 20:07 BMI result Body Mass Index 33.0 Middle-aged female lying in bed in no distress Neck supple, no JVD Regular rate and rhythm, S1-S2 heard Regular breath sounds bilaterally, no wheezing or crackles appreciated Abdomen soft nontender, no guarding, no rigidity Patient is awake, alert and oriented to self, place, time and person ; strength 4/5 in right upper extremity, 5/5 in left upper and bilateral lower extremity, no nystagmus, facial droop seen Psych: Normal mood No pedal edema Neuro: Speech: Abnormal speech present Results Labs 09/11/22 20:26 09/11/22 20:26 Labs: Laboratory Results - last 24 hr 09/11/22 09/11/22 09/11/22 20:17 20:26 20:26 MCV 84.0 MCH 25.9 L MCHC 30.8 L RDW 13.8 Plt Count 282 MPV 9.2 L Immature Gran % (Auto) 0.2 Neut % (Auto) 63.2 Lymph % (Auto) 30.3 [place] % (Auto) 5.7 Eos % (Auto) 0.3 Baso % (Auto) 0.3 Lymph # (Auto) 3.5 [place] # (Auto) 0.7 Eos # (Auto) 0.0 Baso # (Auto) 0.0 Abs Immat Gran (auto) 0.02 Absolute Neuts (auto) 7.3 Absolute Nucleated RBC 0.000 Nucleated RBC % (auto) 0.0 PT 10.0 Whole Blood PT INR 0.9 Whole Blood INR APTT 32.3 Anion Gap Estim Creat Clear Calc Estimated GFR POC Glucose 152 H Random Glucose Calcium Phosphorus Magnesium Total Creatine Kinase Troponin I High Sens Urine Color Urine Appearance Urine pH Ur Specific [place] Urine Protein Urine Glucose (UA) Urine Ketones Urine Blood Urine Nitrite Ur Leukocyte Esterase Ethyl Alcohol Influenza Type A (PCR) Influenza Type B (PCR) RSV RNA Qual (PCR) SARS-CoV-2 RNA (RT-PCR) 09/11/22 09/11/22 09/11/22 20:26 20:26 20:26 MCV MCH MCHC RDW Plt Count MPV Immature Gran % (Auto) Neut % (Auto) Lymph % (Auto) [place] % (Auto) Eos % (Auto) Baso % (Auto) Lymph # (Auto) [place] # (Auto) Eos # (Auto) Baso # (Auto) Abs Immat Gran (auto) Absolute Neuts (auto) Absolute Nucleated RBC Nucleated RBC % (auto) PT Whole Blood PT INR Whole Blood INR APTT Anion Gap 14 Estim Creat Clear Calc 37.1 Estimated GFR 57 POC Glucose Random Glucose 108 Calcium 10.2 D Phosphorus 3.2 Magnesium 2.1 Total Creatine Kinase 214 H Troponin I High Sens < 3.5 Urine Color Urine Appearance Urine pH Ur Specific [place] Urine Protein Urine Glucose (UA) Urine Ketones Urine Blood Urine Nitrite Ur Leukocyte Esterase Ethyl Alcohol < 10 Influenza Type A (PCR) NEGATIVE Influenza Type B (PCR) NEGATIVE RSV RNA Qual (PCR) NEGATIVE SARS-CoV-2 RNA (RT-PCR) NEGATIVE 09/11/22 09/11/22 20:30 21:33 MCV MCH MCHC RDW Plt Count MPV Immature Gran % (Auto) Neut % (Auto) Lymph % (Auto) [place] % (Auto) Eos % (Auto) Baso % (Auto) Lymph # (Auto) [place] # (Auto) Eos # (Auto) Baso # (Auto) Abs Immat Gran (auto) Absolute Neuts (auto) Absolute Nucleated RBC Nucleated RBC % (auto) PT Whole Blood PT 12.1 INR Whole Blood INR 1.0 APTT Anion Gap Estim Creat Clear Calc Estimated GFR POC Glucose Random Glucose Calcium Phosphorus Magnesium Total Creatine Kinase Troponin I High Sens Urine Color Yellow Urine Appearance Clear Urine pH 5.5 Ur Specific [place] 1.020 Urine Protein Negative Urine Glucose (UA) Negative Urine Ketones Negative Urine Blood Negative Urine Nitrite Negative Ur Leukocyte Esterase Negative Ethyl Alcohol Influenza Type A (PCR) Influenza Type B (PCR) RSV RNA Qual (PCR) SARS-CoV-2 RNA (RT-PCR) Imaging Radiologist's Impressions: Impressions Head CT 09/11/22 20:37 IMPRESSION: No acute intracranial pathology. This critical result was discussed with Dr. Jamil at 2048 hours on 09/11/2022. It was ascertained that the content and urgency of the report was understood at the time of direct communication. Head/Neck CTA 09/11/22 20:54 IMPRESSION: Normal CT angiogram of the head and neck. Assessment and Plan (1) Facial droop: Status: Acute Plan This is a 62-year-old female with pertinent history of essential hypertension, opioid use disorder who presents to the emergency department for evaluation of right-sided facial droop. #. Facial droop with right extremity weakness: Concerning for acute CVA. Will admit patient with cardiac monitoring. Obtain MRI. Consulting Neurology, appreciate assistance. Will administer aspirin. Echo based on MRI results. Obtaining A1c and lipid panel #. Opioid use disorder: On methadone. UDS pending #. Essential hypertension: Hold lisinopril to allow for permissive hypertension. Med rec pending DVT prophylaxis: Lovenox 40 mg daily Full code NPO until patient passes bedside swallow Admit as inpatient for CVA workup. Specialist consult pending Time Spent With Patient Time: Total time managing care of this patient today ____ minutes. Quality Stroke Does the patient have a stroke diagnosis?: Yes Reason for No Anti-thrombotic by Day Two: N/A - Med Ordered VTE Prior VTE?: No VTE Risk Level:: Medical - moderate - high VTE Device Contraindication: Treatment Not Indicated VTE Drug Contraindication: N/A - Med Ordered
[2022-09-11 23:01] LABS: Amphetamine Screen Urine Not Detected (Not Detect); Barbiturates, Urine Not Detected (Not Detect); Benzodiazepines Screen Urine Not Detected (Not Detect); Cannabinoid Screen Urine Not Detected (Not Detect); Cocaine Screen Urine POSITIVE (Not Detect); Fentanyl, urine POSITIVE (Not Detect); Opiate Screen Urine Not Detected (Not Detect); Phencyclidine Screen Urine Not Detected (Not Detect)
[2022-09-12] VITALS (9 sets, daily range): BP systolic 128–172; BP diastolic 56–92; PULSE 65–73; RESP 12–20; TEMP 36.7–36.8; O2SAT 93–98
[2022-09-12] MEDS: 0.9 % Sodium Chloride 250 ML 999 ML IV (00:07)
--- NOTE | 2022-09-12 00:12 | PC.NURSE ---
Pt sleeping at the bedside in no apparent distress. Awaken when called by name. Answers questions appropriately. Refuses asp and Lovenox inj. Education provided on importance of taking these two medications. Breaths are even and unlabored. NSR on monitor with HR 66. Abd soft and non tender. Will continue to monitor.
--- NOTE | 2022-09-12 02:37 | PC.NURSE ---
Pt asleep at the bedside. Breaths are even and unlabored with equal chest rises. NSR on monitor with HR 67. No apparent distress noted. Will continue to monitor.
--- NOTE | 2022-09-12 04:31 | PC.NURSE ---
MRI form completed with pt and faxed.
[2022-09-12 05:55] LABS: MANUAL DIFF FLAG NO
--- NOTE | 2022-09-12 06:04 | PC.NURSE ---
Methadone dosed verified and form sent to pharmacy.
[2022-09-12 06:10] LABS: Basophils Percent Auto 0.3 % (0-2); Eosinophils Absolute Auto 0.1 X10*3/uL (0.0-0.4); Eosinophils Percent Auto 0.8 % (0-4); Hematocrit 45.6 % (37.0-47.0); Hemoglobin 14.1 g/dl (12.0-16.0); Imm Gran Abs Auto 0.02 X10*3/uL (0.00-0.03); Imm Gran Pct Auto 0.2 % (0.0-0.4); Lymphocytes Absolute Auto 3.2 X10*3/uL (1.2-4.9); Lymphocytes Percent Auto 35.7 % (20-40); Mean Corpuscular HGB Conc 30.9 g/dl (31.0-35.0); Mean Corpuscular Hemoglobin 26.5 pg (27.0-33.0); Mean Corpuscular Volume 85.6 fL (80.0-98.0); Mean Platelet Volume 9.9 fL (9.4-12.3); Monocytes Absolute Auto 0.5 X10*3/uL (0.1-1.2); Neutrophils Absolute Auto 5.1 x10*3/uL (2.0-8.3); Platelet Count 260 X10*3/uL (160-400); Red Blood Count 5.33 X10*6/uL (4.20-5.50); Red Cell Distribution Width 13.8 % (11.0-16.0); White Blood Count 8.9 X10*3/uL (4.8-10.8)
[2022-09-12 06:19] LABS: Anion Gap 15 (12-20); Blood Urea Nitrogen 18 mg/dL (9-16); Calcium 9.3 mg/dL (8.4-10.2); Carbon Dioxide 22 mmol/L (22-29); Chloride 106 mmol/L (96-108); Creatinine Clr Calc Pharmacy 35.3; Estimated Glomerular Filt Rate 53; Glucose Random 192 mg/dL (60-115); Sodium 139 mmol/L (135-145)
[2022-09-12 06:30] LABS: HDL Cholesterol 43 mg/dL; Triglycerides 117 mg/dL
[2022-09-12 06:43] LABS: Cholesterol 161 mg/dL; LDL Cholesterol Calculated 95 mg/dl
[2022-09-12 06:58] LABS: Estimated Average Glucose 151 mg/dL; Hemoglobin A1c % 6.9 %
--- NOTE | 2022-09-12 07:10 | HE.PHANOTE ---
Methadone Verification Pharmacy has received the methadone verification from Andree. Patient last received methadone 92 mg on 09/11 @ 0806 at [facility]. Confirmed with JAYLON Gómez at clinic. Mirian Castañeda, YoniD
[2022-09-12 07:13] LABS: Glucose, Whole Blood 130 mg/dL (60-115)
--- NOTE | 2022-09-12 08:43 | PM.NEUROCN ---
History of Present Illness Data of Consult Service Date: 09/12/22 Primary Care Provider: Unknown Physician HPI Reason for consult: Stroke 62 years old woman with underlying history of hypertension probably not controlled came to hospital with new onset of right-sided facial numbness and hand weakness. There was no complaint of leg weakness. No headache dizziness or double vision. Review of Systems Review of Systems: No recent cold or flu-like illness PMFSH Past Medical History Medical History Borderline diabetes Hypertension No known health problems Substance abuse Social History Social History Alcohol intake: unknown Patient Tobacco Use Status: Tobacco use Unknown Advance Directives: No Advance Directives Information Provided: No Nutrition Risks: Difficulty chewing and Difficulty swallowing Patient : No service: No Current occupational status: unemployed Meds Allergies Allergy/AdvReac Type Severity Reaction Status Date / Time No Known Allergies Allergy Verified 02/23/22 12:45 [No Known Allergies*] Active Medications: Current Medications Acetaminophen (Acetaminophen 325 Mg Tablet) 650 mg PO Q6H PRN PRN Reason: Pain, Mild (Pain Scale 1-3) Enoxaparin Sodium (Enoxaparin Sodium 40 Mg/0.4 Ml Syringe) 40 mg SUBCUT Q24H LA Last Admin: 09/12/22 00:11 Dose: Not Given Melatonin (Melatonin 3 Mg Tablet) 6 mg PO BEDTIME PRN PRN Reason: Insomnia Ondansetron HCl (Ondansetron Hcl 4 Mg/2 Ml Vial) 4 mg IVPUSH Q8H PRN PRN Reason: Nausea and Vomiting Pharmacy Consult (Consult Rx Perform Med Rec) 1 each MISCELLANE ONCE PRN PRN Reason: Consult order Home Medications Medication Instructions Recorded Confirmed Last Taken Type cholecalciferol (vitamin D3) 50 1 cap PO DAILY 09/11/22 09/11/22 Unknown History mcg (2,000 unit) capsule (Vitamin D3) lisinopril 40 mg tablet 1 tab PO DAILY 09/11/22 09/11/22 Unknown History methadone 10 mg/mL oral 92 mg PO DAILY 09/12/22 09/12/22 09/11/22 08:06 History concentrate (Methadose) Physical Exam Vital Signs: Vital Signs: Last Vital Signs Temp 98.0 F 09/12/22 00:01 Pulse 65 09/12/22 06:56 Resp 12 09/12/22 06:56 BP 154/85 H 09/12/22 06:56 Pulse Ox 98 09/12/22 06:56 O2 Del Method 09/12/22 06:56 BMI result Body Mass Index 33.0 Neuro: Other: Very sleepy tired and drowsy but was able to wake up and answer simple questions. There was moderate right-sided central type facial weakness and mild right arm and hand weakness. Visual sanchez could not be determined. She was able to answer questions appropriately. Results Labs 09/12/22 05:33 09/12/22 05:33 Labs: Short CBC 09/11/22 09/12/22 Range/Units 20:26 05:33 WBC 11.5 H 8.9 (4.8-10.8) X10*3/uL Hgb 14.6 14.1 (12.0-16.0) g/dl Hct 47.4 H 45.6 (37.0-47.0) % Plt Count 282 260 (160-400) X10*3/uL BMP 09/11/22 09/12/22 20:26 05:33 Sodium 139 139 Potassium 4.6 4.0 Chloride 105 106 Carbon Dioxide 25 22 BUN 25 H 18 H Creatinine 1.00 1.05 Calcium 10.2 D 9.3 D Cardiac Enzymes 09/11/22 Range/Units 20:26 Total Creatine Kinase 214 H (26-140) U/L Urine 09/11/22 Range/Units 21:33 Urine Color Yellow Urine Appearance Clear Urine pH 5.5 (5.0-9.0) Ur Specific [place] 1.020 (1.005-1.025) Urine Protein Negative (Neg-Trace) mg/dL Urine Glucose (UA) Negative (Negative) mg/dL Moderate to severe chronic diffuse microvascular ischemic disease of brain was noted on CT scan of brain with negative CTA. Assessment and Plan (1) Cerebrovascular accident: Status: Acute 62 years old woman with uncontrolled hypertension and drug abuse who came to hospital with new onset of right-sided facial weakness and arm weakness likely from an acute ischemic infarct. Her imaging revealed extensive chronic microvascular type of ischemic pathology associated with uncontrolled hypertension and drug abuse. Mainstay of management is completely stopping drugs and appropriate treatment of blood pressure with anti-platelet agent and statin. PT OT consultation is also recommended Time Spent With Patient Time: Total time managing care of this patient today ____ minutes. Procedures Date of Service Date of Service: 09/12/22
--- NOTE | 2022-09-12 08:48 | MHC.CM.PN ---
PT REPORTS SHE LIVES ALONE AND IS INDEPENDENT WITH CARE PT DENIES USE OF DME OR SERVICES PT SAYS SHE HAS A PCP AT [facility], DOES NOT KNOW THE NAME SHE SAYS SHE IS COVID VAX, NOT BOOSTED DECLINES HCP CURRENT DC PLAN IS HOME WITH NO SERVICES PT SAYS SHE WILL HAVE A RIDE
[2022-09-12] MEDS: methADONE HCl 20 MG/2 ML ORAL.CONC 90 MG PO (11:15)
--- NOTE | 2022-09-12 16:00 | MHC.STROKE ---
09/11/22 WALK-IN AT 2002, C/O FACIAL DROOP AND DYSARTHRIA, ONSET IDENTIFIED TO BE DAY PRIOR 09/10/22 AROUND [address] EXAMINED BY DR PEREIRA, STROKE PROTOCOL ACTIVATED, CT CTA H/N DONE. NO BLEED, NO LVO. EXCLUDED FROM TPA BASED ON DELAY IN ARRIVAL. + DRUG SCREEN, REQUESTED REFERRAL TO CARE TEAM. NIHSS = 3, DONE UPON ARRIVAL. ADMITTED TO INPATIENT, TODAY HER MRI WAS + FOR LEFT THALAMIC STROKE. I MET WITH THE PATIENT, SHE WAS INTERMITTENTLY DROWSY AND AWAKE. SHE DID ADMIT TO DRUG USE, SHE IS ASKING FOR HELP. SHE SMOKES ABOUT 4 CIGARETTES A DAY AND IS ASKING FOR A NICOTINE PATCH, I RELAYED THAT TO DR PORTER. I INITIATED STROKE EDUCATION, I REVIEWED A SCREEN SHOT OF HER MRI AND THE LOCATION OF HER STROKE , I EXPLAINED THAT SHE HAS HAD PRIOR STROKES AND HOW THEY CAN BE RELATED TO HER DRUG USE AND HYPERTENSIVE EPISODES. THE RN ALSO ASSISTED IN PROVIDING EDUCATION AND SUPPORT. I WILL CONTINUE TO FOLLOW.
--- NOTE | 2022-09-12 16:40 | P.DS_ITS ---
DS: Providers Provider Date of Service: 09/12/22 Date of admission: 09/11/22 22:06 Primary care physician: TRUONG Jamison Consults: 09/11/22 22:06 Consult to Neurology Routine Consulting Provider: [facility] Reason for consultation: facial droop 09/12/22 10:19 Consult to Care Team Routine Comment: Reason for consultation: + drug screen DS: Diagnosis Discharge Diagnosis (1) Cerebrovascular accident: Status: Acute DS: Summary Hospital Course Hospital Course: Date of Service: 09/11/22 Chief Complaint: Facial droop This is a 62-year-old female with pertinent history of essential hypertension who presents to the emergency department for evaluation of right-sided facial droop.? Patient states she woke up this morning and noticed that she had facial droop.? Also had clumsiness of her right hand.? She thought speech was different.? Denies similar history in the past.? Denies history of poly substance use.? Patient is currently on methadone for opioid use disorder.? Patient denies lower extremity weakness, blurry vision, headache.? She denies fever, chills, chest discomfort, palpitations, shortness of breath, abdominal pain, changes in urinary or bowel habits. 62 years old woman with uncontrolled hypertension and drug abuse who came to hospital with new onset of right-sided facial weakness and arm weakness likely from an acute ischemic infarct.? Her imaging revealed extensive chronic microvascular type of ischemic pathology associated with uncontrolled hypertension and drug abuse. Patient was admitted to intermediate care unit, PT OT consult were obtained and addiction medicine was consulted Patient evaluated by Neurology they recommended antiplatelet agent and statins and recommended stopping illicit drug use including cocaine, patient was noted to be somnolent with concern of using drugs in the room therefore security was called and a bag of illegal substance was found patient became upset and decided to leave AMA patient was informed about risk of worsening neurological deficit , strongly recommended to abstain from cocaine use that can cause acute KS and acute stroke patient showed understanding but chose to leave hospital patient wa s able to ambulate with a wheeled walker. Time Spent with Patient Time attestation: Total time managing care of this patient today ____ minutes. Discharge coordination time: Greater than 30 minutes Quality: Safe Use of Opioids Does Pt have an Active Cancer Diagnosis on the Problem List?: No Quality: Stroke Does the patient have a stroke diagnosis?: Yes Reason for No Anti-thrombotic at DC: N/A - Med Ordered Reason for No Anticoagulant at DC: N/A - Med Ordered Reason Not Initiating IV-Tpa: Not indicated Reason for No Anti-thrombotic by Day Two: N/A - Med Ordered Reason for No Statin at DC: Drug declined by patient Physical Exam 2 Vital Signs: Vital Signs: Last Vital Signs Temp 98.3 F 09/12/22 15:50 Pulse 69 09/12/22 15:50 Resp 17 09/12/22 15:50 BP 128/56 L 09/12/22 15:50 Pulse Ox 95 09/12/22 15:50 O2 Del Method 09/12/22 15:50 BMI result Body Mass Index 33.0 Const: Other: Middle-aged female in no distress Ne ck supple, no JVD CVS Regular rate a nd rhythm, S1-S2 h eard RESP;Regular breath sounds bila terally, no wheezi ng or crackles estee reciated Abdomen s oft non tender, no guarding, no rigi dity GEN awake, a lert and oriented x3, strength 4/5 i n right upper extr emity, 5/5 in left upper and bilater al lower extremity , no nystagmus,rt. facial droop Psy ch: Normal mood No pedal edema Neuro:?? DS: Data Data Completed and Pending Labs on day of discharge: Laboratory Results - last 24 hr 09/11/22 09/11/22 09/11/22 20:17 20:26 20:26 WBC 11.5 H RBC 5.64 H Hgb 14.6 Hct 47.4 H MCV 84.0 MCH 25.9 L MCHC 30.8 L RDW 13.8 Plt Count 282 MPV 9.2 L Immature Gran % (Auto) 0.2 Neut % (Auto) 63.2 Lymph % (Auto) 30.3 Perry % (Auto) 5.7 Eos % (Auto) 0.3 Baso % (Auto) 0.3 Lymph # (Auto) 3.5 Perry # (Auto) 0.7 Eos # (Auto) 0.0 Baso # (Auto) 0.0 Abs Immat Gran (auto) 0.02 Absolute Neuts (auto) 7.3 Absolute Nucleated RBC 0.000 Nucleated RBC % (auto) 0.0 PT 10.0 Whole Blood PT INR 0.9 Whole Blood INR APTT 32.3 Sodium Potassium Chloride Carbon Dioxide Anion Gap BUN Creatinine Estim Creat Clear Calc Estimated GFR POC Glucose 152 H Random Glucose Estimat Average Glucose Hemoglobin A1c % Calcium Phosphorus Magnesium Total Creatine Kinase Troponin I High Sens Triglycerides Cholesterol LDL Cholesterol, Calc HDL Cholesterol Urine Color Urine Appearance Urine pH Ur Specific [place] Urine Protein Urine Glucose (UA) Urine Ketones Urine Blood Urine Nitrite Ur Leukocyte Esterase Urine Opiates Screen Urine Fentanyl Screen Ur Barbiturates Screen Ur Phencyclidine Scrn Ur Amphetamines Screen U Benzodiazepines Scrn Urine Cocaine Screen U Marijuana (THC) Screen Ethyl Alcohol Influenza Type A (PCR) Influenza Type B (PCR) RSV RNA Qual (PCR) SARS-CoV-2 RNA (RT-PCR) 09/11/22 09/11/22 09/11/22 20:26 20:26 20:26 WBC RBC Hgb Hct MCV MCH MCHC RDW Plt Count MPV Immature Gran % (Auto) Neut % (Auto) Lymph % (Auto) [place] % (Auto) Eos % (Auto) Baso % (Auto) Lymph # (Auto) [place] # (Auto) Eos # (Auto) Baso # (Auto) Abs Immat Gran (auto) Absolute Neuts (auto) Absolute Nucleated RBC Nucleated RBC % (auto) PT Whole Blood PT INR Whole Blood INR APTT Sodium 139 Potassium 4.6 Chloride 105 Carbon Dioxide 25 Anion Gap 14 BUN 25 H Creatinine 1.00 Estim Creat Clear Calc 37.1 Estimated GFR 57 POC Glucose Random Glucose 108 Estimat Average Glucose Hemoglobin A1c % Calcium 10.2 D Phosphorus 3.2 Magnesium 2.1 Total Creatine Kinase 214 H Troponin I High Sens < 3.5 Triglycerides Cholesterol LDL Cholesterol, Calc HDL Cholesterol Urine Color Urine Appearance Urine pH Ur Specific [place] Urine Protein Urine Glucose (UA) Urine Ketones Urine Blood Urine Nitrite Ur Leukocyte Esterase Urine Opiates Screen Urine Fentanyl Screen Ur Barbiturates Screen Ur Phencyclidine Scrn Ur Amphetamines Screen U Benzodiazepines Scrn Urine Cocaine Screen U Marijuana (THC) Screen Ethyl Alcohol < 10 Influenza Type A (PCR) NEGATIVE Influenza Type B (PCR) NEGATIVE RSV RNA Qual (PCR) NEGATIVE SARS-CoV-2 RNA (RT-PCR) NEGATIVE 09/11/22 09/11/22 09/11/22 20:26 20:30 21:33 WBC RBC Hgb Hct MCV MCH MCHC RDW Plt Count MPV Immature Gran % (Auto) Neut % (Auto) Lymph % (Auto) [place] % (Auto) Eos % (Auto) Baso % (Auto) Lymph # (Auto) [place] # (Auto) Eos # (Auto) Baso # (Auto) Abs Immat Gran (auto) Absolute Neuts (auto) Absolute Nucleated RBC Nucleated RBC % (auto) PT Whole Blood PT 12.1 INR Whole Blood INR 1.0 APTT Sodium Potassium Chloride Carbon Dioxide Anion Gap BUN Creatinine Estim Creat Clear Calc Estimated GFR POC Glucose Random Glucose Estimat Average Glucose 151 Hemoglobin A1c % 6.9 Calcium Phosphorus Magnesium Total Creatine Kinase Troponin I High Sens Triglycerides Cholesterol LDL Cholesterol, Calc HDL Cholesterol Urine Color Yellow Urine Appearance Clear Urine pH 5.5 Ur Specific [place] 1.020 Urine Protein Negative Urine Glucose (UA) Negative Urine Ketones Negative Urine Blood Negative Urine Nitrite Negative Ur Leukocyte Esterase Negative Urine Opiates Screen Urine Fentanyl Screen Ur Barbiturates Screen Ur Phencyclidine Scrn Ur Amphetamines Screen U Benzodiazepines Scrn Urine Cocaine Screen U Marijuana (THC) Screen Ethyl Alcohol Influenza Type A (PCR) Influenza Type B (PCR) RSV RNA Qual (PCR) SARS-CoV-2 RNA (RT-PCR) 09/11/22 09/12/22 09/12/22 21:33 05:33 05:33 WBC 8.9 RBC 5.33 Hgb 14.1 Hct 45.6 MCV 85.6 MCH 26.5 L MCHC 30.9 L RDW 13.8 Plt Count 260 MPV 9.9 Immature Gran % (Auto) 0.2 Neut % (Auto) 57.0 Lymph % (Auto) 35.7 [place] % (Auto) 6.0 Eos % (Auto) 0.8 Baso % (Auto) 0.3 Lymph # (Auto) 3.2 [place] # (Auto) 0.5 Eos # (Auto) 0.1 Baso # (Auto) 0.0 Abs Immat Gran (auto) 0.02 Absolute Neuts (auto) 5.1 Absolute Nucleated RBC 0.000 Nucleated RBC % (auto) 0.0 PT Whole Blood PT INR Whole Blood INR APTT Sodium 139 Potassium 4.0 Chloride 106 Carbon Dioxide 22 Anion Gap 15 BUN 18 H Creatinine 1.05 Estim Creat Clear Calc 35.3 Estimated GFR 53 POC Glucose Random Glucose 192 H Estimat Average Glucose Hemoglobin A1c % Calcium 9.3 D Phosphorus Magnesium Total Creatine Kinase Troponin I High Sens Triglycerides Cholesterol LDL Cholesterol, Calc HDL Cholesterol Urine Color Urine Appearance Urine pH Ur Specific [place] Urine Protein Urine Glucose (UA) Urine Ketones Urine Blood Urine Nitrite Ur Leukocyte Esterase Urine Opiates Screen Not Detected Urine Fentanyl Screen POSITIVE H Ur Barbiturates Screen Not Detected Ur Phencyclidine Scrn Not Detected Ur Amphetamines Screen Not Detected U Benzodiazepines Scrn Not Detected Urine Cocaine Screen POSITIVE H U Marijuana (THC) Screen Not Detected Ethyl Alcohol Influenza Type A (PCR) Influenza Type B (PCR) RSV RNA Qual (PCR) SARS-CoV-2 RNA (RT-PCR) 09/12/22 09/12/22 05:33 06:57 WBC RBC Hgb Hct MCV MCH MCHC RDW Plt Count MPV Immature Gran % (Auto) Neut % (Auto) Lymph % (Auto) [place] % (Auto) Eos % (Auto) Baso % (Auto) Lymph # (Auto) [place] # (Auto) Eos # (Auto) Baso # (Auto) Abs Immat Gran (auto) Absolute Neuts (auto) Absolute Nucleated RBC Nucleated RBC % (auto) PT Whole Blood PT INR Whole Blood INR APTT Sodium Potassium Chloride Carbon Dioxide Anion Gap BUN Creatinine Estim Creat Clear Calc Estimated GFR POC Glucose 130 H Random Glucose Estimat Average Glucose Hemoglobin A1c % Calcium Phosphorus Magnesium Total Creatine Kinase Troponin I High Sens Triglycerides 117 Cholesterol 161 LDL Cholesterol, Calc 95 HDL Cholesterol 43 Urine Color Urine Appearance Urine pH Ur Specific [place] Urine Protein Urine Glucose (UA) Urine Ketones Urine Blood Urine Nitrite Ur Leukocyte Esterase Urine Opiates Screen Urine Fentanyl Screen Ur Barbiturates Screen Ur Phencyclidine Scrn Ur Amphetamines Screen U Benzodiazepines Scrn Urine Cocaine Screen U Marijuana (THC) Screen Ethyl Alcohol Influenza Type A (PCR) Influenza Type B (PCR) RSV RNA Qual (PCR) SARS-CoV-2 RNA (RT-PCR) Discharge Plan Discharge Patient Disposition: Left Against Medical Advice Discharge Diagnosis: Acute CVA Referrals: Judy Gilbert FNP [Primary Care Provider] - 1 Week Discharge Medications: New aspirin [Ecotrin Low Strength] 81 mg tablet,delayed release (DR/EC) 81 mg PO DAILY Qty: 30 0RF Continued lisinopril 40 mg tablet 1 tab PO DAILY cholecalciferol (vitamin D3) [Vitamin D3] 50 mcg (2,000 unit) capsule 1 cap PO DAILY methadone [Methadose] 10 mg/mL Concentrate 92 mg PO DAILY Discharge Orders: Discharge Order (Routine); Ordered 09/12/22 Ordered By: Lovely Jaquez Care Plan Goals: Acute ischemic infarction recommend to continue blood pressure medication and strongly advised to abstain from illicit drug use and smoking Patient left hospital against medical advice , patient informed about the diagnosis of stroke and needing further evaluation by Physical therapy, Occupational therapy and close blood pressure monitoring and dosage adjustment, patient showed understanding by repeating her diagnosis and at high risk for worsening or recurrent stroke, however she is adamant to leave the hospital against medical advice, patient is aware of risk of using cocaine that can cause fatal KS and recurrent strokes. Health Concerns: Illicit drug use, uncontrolled hypertension Plan of Treatment: Outpatient follow-up with PCP Assessment: As above Discharge Date/Time: 09/12/22 17:02
--- NOTE | 2022-09-13 09:08 | MHC.RECOVRN ---
This underwriter mortgage loan went to meet with patient, after Addiction Consult placed. Upon chart review to prepare for visit, patient left AMA.
== END 2022-09-12 17:02 | disposition left against medical advice (07) | DRG 45 ==
LOC: HO.ED 21:34 → HO.EDOVER 22:12 → HO.IMC 09-12 11:53
PROVIDERS: Admitting Provider Student in an Organized Health Care Education/Training Program; Emergency Provider Emergency Medicine Emergency Medical Services; PCP Registered Nurse; Visit Provider Hospitalist
DX: I63.9 Cerebral infarction, unspecified (principal); F11.20 Opioid dependence, uncomplicated; F17.210 Nicotine dependence, cigarettes, uncomplicated; I10 Essential (primary) hypertension; R29.703 NIHSS score 3; Z71.6 Tobacco abuse counseling; Z20.822 Contact with and (suspected) exposure to COVID-19; Z79.899 Other long term (current) drug therapy
CPT/HCPCS: 0241U; 36415; 70450; 70496; 70498; 70551; 80048; 80061; 80307; 81003; 82077; 82550; 82947; 83036; 83735; 84100; 84484; 85025; 85610; 85730; 93005; 97162; 99285; Q9967

== ENCOUNTER 2022-09-24 13:39 | Emergency (ER) | payer MEDICAID, SELFPAY ==
--- NOTE | ~2022-09-24 | CT_ITS ---
EXAMINATION: CT HEAD WITHOUT CONTRAST CLINICAL INFORMATION: Right-sided weakness. COMPARISON: Brain MRI 09/12/2022. TECHNIQUE: Contiguous axial imaging was performed from the skull base to vertex without intravenous administration of contrast. This CT examination was performed using dose optimization techniques as appropriate, variously including the following: *Automated exposure control *Adjustment of mA and/or kV according to patient size (this includes techniques or standardized protocols for targeted exams where dose is matched to indication/reason for exam; i.e. extremities or head) *Use of iterative reconstruction technique DLP: 665 mGy-cm FINDINGS: There is an evolving lacunar infarct involving the posterior limb of the left internal capsule at its junction with the thalamus. This finding is superimposed upon numerous chronic small vessel ischemic changes primarily involving the periventricular white matter, basal ganglia, thalami, and slava. Grossly no new infarct. No acute hemorrhage. No intracranial mass effect or hydrocephalus. The calvarium and skull base are intact. Mastoid air cells and middle ear cavities are well aerated. No active paranasal sinus disease. CT/CT head/brain wo IV con IMPRESSION: There is an evolving lacunar infarct involving the posterior limb of the left internal capsule at its junction with the thalamus. This finding is superimposed upon numerous chronic small vessel ischemic changes primarily involving the periventricular white matter, basal ganglia, thalami, and slava. No new infarct and no acute intracranial hemorrhage.
--- NOTE | 2022-09-24 13:44 | MHC.EDTECH ---
@[phone] called Neuro/Stroke line to notify them that an ambulance just arrived with a stroke alert. The individual on the phone took patient demographics and stated she would notify the team.
[2022-09-24 14:07] VITALS: BP 131/80; BP 135/80; PULSE 68; PULSE 80; RESP 19; TEMP 37; O2SAT 96; O2SAT 97; BMI 29.9
--- NOTE | 2022-09-24 14:08 | ECG_ITS ---
Test Reason : SOB Blood Pressure : / mmHG Vent. Rate : 063 BPM Atrial Rate : 063 BPM P-R Int : 126 ms QRS Dur : 084 ms QT Int : 436 ms P-R-T Axes : 027 021 039 degrees QTc Int : 446 ms Normal sinus rhythm Minimal voltage criteria for LVH, may be normal variant ( Sokolow-Viveros ) Borderline ECG When compared with ECG of 11-SEP-2022 21:23, No significant change was found Referred By: Selena Dupree Electronically Signed By:Praveen Nicole
--- NOTE | 2022-09-24 14:44 | ED.NEUROSD ---
HPI - Neuro Symptoms/Deficit General Chief Complaint: Weakness Stated Complaint: Stroke alert,arm weak,R side facial droop per EMS Time Seen by Provider: 09/24/22 13:50 Source: patient, EMS and old records reviewed Mode of arrival: EMS Limitations: no limitations History of Present Illness HPI Narrative: 62 yo female PMH of HTN, admitted on 09/11 with R sided facial droop and R arm weakness - found to have MRI acute infarct left lateral thalamus and posterior limb of internal capsule - thought to be due to drug use and uncontrolled HTN - it was recommended she be started on anti-platelet agent and statin. She left AMA on 09/12. She comes back today wtih c/o wondering why she still has weakness on the R side. She last used on Saturday. She wants rehab now as she cannot manage well at home and now she feels over the past several days her R leg is weak too. She also feels her speech is affected. Onset (ago): day(s) (09/11) Location: speech, right face, right arm and right leg History of same: Yes Severity: moderate Quality: weak Relieving factors: none Exacerbating factors: time Context: gradual onset On Anticoagulants: No Associated symptoms: denies other symptoms Treatments Prior to Arrival: none Related Data Home Medications Medication Instructions Recorded Confirmed cholecalciferol (vitamin D3) 50 1 cap PO DAILY 09/11/22 09/11/22 mcg (2,000 unit) capsule (Vitamin D3) lisinopril 40 mg tablet 1 tab PO DAILY 09/11/22 09/11/22 methadone 10 mg/mL oral 92 mg PO DAILY 09/12/22 09/12/22 concentrate (Methadose) Allergies Allergy/AdvReac Type Severity Reaction Status Date / Time No Known Allergies Allergy Verified 02/23/22 12:45 [No Known Allergies*] Review of Systems Review of Systems: Constitutional : No Fever, No Chills, No Fatigue ENT/Mouth : No sore throat, No Rhinorrhea Eyes: No Eye Pain, No Swelling, No Redness Cardiovascular : No Chest Pain, No SOB, No Dyspnea on Exertion Respiratory : No Cough, No Sputum Gastrointestinal : No Nausea, No Vomiting, No Diarrhea, No abdominal Pain Genitourinary : No Dysuria, No Urinary Frequency, No Hematuria, Musculoskeletal : No joint pain, No Myalgias, No Joint Swelling Skin : No Skin Lesions, No rash Neuro : pos Weakness, No Numbness, No Dizziness, no Headache Psych : No Anxiety/Panic, No Depression Heme/Lymph: No Bruising, No Bleeding,No Lymphadenopathy Endocrine : No Polyuria, No Polydipsia All other systems reviewed and are negative [facility] Past Medical History Attestation statement: The following information was validated with the patient. Medical History Borderline diabetes Hypertension No known health problems Substance abuse Social History Social History Household Members: None Housing: Apartment Do you presently have visiting nurse or other home services: No Alcohol intake: unknown Patient Tobacco Use Status: Current everyday Tobacco user Tobacco use type: Cigarette Cigarettes Per Day: 3 Second Hand Smoke Exposure: No Substance Use Type: Marijuana Advance Directives: No Advance Directives Information Provided: No service: No Current occupational status: unemployed Physical Exam Vital Signs: Vital Signs: Last Vital Signs Temp 98.6 F 09/24/22 14:07 Pulse 61 09/24/22 16:23 Resp 14 09/24/22 16:23 BP 134/72 09/24/22 16:23 Pulse Ox 96 09/24/22 16:23 O2 Del Method 09/24/22 16:23 BMI result Body Mass Index 29.9 Appearance: Alert. Oriented X3. No acute distress. Eyes: Pupils equal, round and reactive to light. ENT: Pharynx normal. Neck: Normal inspection. Neck supple. CVS: Normal heart rate and rhythm. Pulses normal. Respiratory: No respiratory distress. Breath sounds normal. Abdomen: Soft and non-tender. Skin: Skin warm and dry. Normal skin color. Normal skin turgor. Extremities: No lower extremity edema. No calf ttp Neuro: Oriented X 3. R sided facial droop, slurred speech, R hand and R arm weakness 4/5, poor effort but 4/5 RLE weakness Course Course Course Narrative: Patient placed in physician observation at 441pm. The indication for observation is that the patient needs more time to see PT/CM for possible acute STR. At this time the patient is well developed well nourished, lungs clear, CV RRR, abd nontender, neuro is at her baseline from last visit actually seems better from arrival. home meds other than methadone are ordered Medications Administered Generic Name Dose Route Start Last Admin Trade Name Osvaldo PRN Reason Stop Dose Admin Aspirin 81 mg 09/24/22 15:30 09/24/22 16:23 Aspirin 81 Mg Tab.Chew PO 81 mg DAILY LA Administration Atorvastatin Calcium 40 mg 09/24/22 15:30 09/24/22 16:24 Atorvastatin Calcium 40 Mg Tablet PO 40 mg DAILY LA Administration Medical Decision Making Medical Decision Making [facility] Narrative: 62 yo female PMH of HTN, admitted on 09/11 with R sided facial droop and R arm weakness - found to have MRI acute infarct left lateral thalamus and posterior limb of internal capsule - thought to be due to drug use and uncontrolled HTN at this time presents with the question of why her symptoms are still present - states her symptoms seem to have worsened as well will obtain labs, CT head, start on aspirin and statin and if workup negative refer to PT/CM for possible rehab placement at patient's request Differential Diagnosis Differential Diagnoses: The differential diagnosis associated with the presentation includes hemorrhagic conversion Consult Healthcare Provider Management of the patient was discussed with: [employer] Dean Lab Data [facility] Lab Attestation statement: I reviewed the patient's lab results. 09/24/22 14:51 09/24/22 14:51 Labs: Lab Results 09/24/22 09/24/22 09/24/22 Range/Units 14:51 14:51 14:51 WBC 9.3 (4.8-10.8) X10*3/uL RBC 5.62 H (4.20-5.50) X10*6/uL Hgb 14.8 (12.0-16.0) g/dl Hct 47.6 H (37.0-47.0) % MCV 84.7 (80.0-98.0) fL MCH 26.3 L (27.0-33.0) pg MCHC 31.1 (31.0-35.0) g/dl RDW 14.2 (11.0-16.0) % Plt Count 310 (160-400) X10*3/uL MPV 9.0 L (9.4-12.3) fL Immature Gran % (Auto) 0.3 (0.0-0.4) % Neut % (Auto) 60.0 (45-73) % Lymph % (Auto) 34.1 (20-40) % [place] % (Auto) 5.3 (2-11) % Eos % (Auto) 0.1 (0-4) % Baso % (Auto) 0.2 (0-2) % Lymph # (Auto) 3.2 (1.2-4.9) X10*3/uL [place] # (Auto) 0.5 (0.1-1.2) X10*3/uL Eos # (Auto) 0.0 (0.0-0.4) X10*3/uL Baso # (Auto) 0.0 (0.0-0.2) X10*3/uL Abs Immat Gran (auto) 0.03 (0.00-0.03) X10*3/uL Absolute Neuts (auto) 5.6 (2.0-8.3) x10*3/uL Absolute Nucleated RBC 0.000 (0.0-0.012) X10*3/uL Nucleated RBC % (auto) 0.0 (0.0-0.2) /100WBC Sodium 144 (135-145) mmol/L Potassium 5.0 D (3.3-5.1) mmol/L Chloride 108 (96-108) mmol/L Carbon Dioxide 28 (22-29) mmol/L Anion Gap 13 (12-20) BUN 24 H (9-16) mg/dL Creatinine 1.40 (0.5-1.4) mg/dL Estim Creat Clear Calc 34.1 Estimated GFR 38 Random Glucose 121 H (60-115) mg/dL Calcium 10.0 D (8.4-10.2) mg/dL Magnesium 1.9 (1.6-2.6) mg/dL Total Bilirubin 0.6 (0.0-1.0) mg/dL Direct Bilirubin 0.2 (0.0-0.5) mg/dL AST 18 (5-31) U/L ALT 22 (0-31) U/L Alkaline Phosphatase 129 H (39-117) U/L Total Protein 7.3 (6.5-8.0) g/dL Albumin 4.1 (3.5-5.0) g/dL Ethyl Alcohol < 10 mg/dL COVID-19 (DIANA) Negative (Negative) COVID-19 Clin Com See Note Independent Interpretation I performed an independent interpretation of an: EKG and CT Scan Interpretation: Rate: 63 Rhythm: NSR [place]: normal Normal P waves. Normal AGBINO. Normal QRS complex. ST T wave : normal no ARON qTC: normal prior studies: no acute ischemia The study has been interpreted contemporaneously by me. Radiology Impression Discussion of test interpretation with radiology: I have reviewed the radiologist's reading. Independent Historian Clinical information obtained from an independent historian. History obtained from or confirmed by: EMS External Record Review External record reviewed: Inpatient record Social Determinants Patient?s care significantly limited by Social Determinants of Health including: Problems related to primary support group and Other Social Determinant of Health Discharge Plan Discharge Clinical Impression: Cerebrovascular accident Qualifiers: CVA mechanism: unspecified Qualified Code(s): I63.9 - Cerebral infarction, unspecified Patient Disposition: Still a Patient Prescriptions: No Action lisinopril 40 mg tablet 1 tab PO DAILY cholecalciferol (vitamin D3) [Vitamin D3] 50 mcg (2,000 unit) capsule 1 cap PO DAILY methadone [Methadose] 10 mg/mL Concentrate 92 mg PO DAILY
[2022-09-24 14:56] LABS: MANUAL DIFF FLAG NO
[2022-09-24 14:59] LABS: Basophils Percent Auto 0.2 % (0-2); Eosinophils Percent Auto 0.1 % (0-4); Hematocrit 47.6 % (37.0-47.0); Hemoglobin 14.8 g/dl (12.0-16.0); Imm Gran Abs Auto 0.03 X10*3/uL (0.00-0.03); Imm Gran Pct Auto 0.3 % (0.0-0.4); Lymphocytes Absolute Auto 3.2 X10*3/uL (1.2-4.9); Lymphocytes Percent Auto 34.1 % (20-40); Mean Corpuscular HGB Conc 31.1 g/dl (31.0-35.0); Mean Corpuscular Hemoglobin 26.3 pg (27.0-33.0); Mean Corpuscular Volume 84.7 fL (80.0-98.0); Monocytes Absolute Auto 0.5 X10*3/uL (0.1-1.2); Monocytes Percent Auto 5.3 % (2-11); Neutrophils Absolute Auto 5.6 x10*3/uL (2.0-8.3); Platelet Count 310 X10*3/uL (160-400); Red Blood Count 5.62 X10*6/uL (4.20-5.50); Red Cell Distribution Width 14.2 % (11.0-16.0); White Blood Count 9.3 X10*3/uL (4.8-10.8)
[2022-09-24 15:13] LABS: COVID-19 Test Negative (Negative); IDNOW Serial# 9DB6401D
[2022-09-24 15:22] LABS: Alanine Aminotransferase 22 U/L (0-31); Albumin Level 4.1 g/dL (3.5-5.0); Alkaline Phosphatase 129 U/L (39-117); Anion Gap 13 (12-20); Aspartate Amino Transferase 18 U/L (5-31); Bilirubin Direct 0.2 mg/dL (0.0-0.5); Bilirubin Total 0.6 mg/dL (0.0-1.0); Blood Urea Nitrogen 24 mg/dL (9-16); Carbon Dioxide 28 mmol/L (22-29); Chloride 108 mmol/L (96-108); Creatinine Clr Calc Pharmacy 34.1; Estimated Glomerular Filt Rate 38; Ethanol < 10 mg/dL; Glucose Random 121 mg/dL (60-115); Magnesium 1.9 mg/dL (1.6-2.6); Sodium 144 mmol/L (135-145); Total Protein 7.3 g/dL (6.5-8.0)
[2022-09-24 16:23] VITALS: BP 134/72; PULSE 61; RESP 14; O2SAT 96
[2022-09-24] MEDS: Aspirin 81 MG TAB.CHEW PO (16:23)
[2022-09-24] MEDS: Atorvastatin Calcium 40 MG TABLET PO (16:24)
[2022-09-24 18:00] VITALS: BP 125/72; PULSE 65; RESP 16; TEMP 36.6; O2SAT 95
--- NOTE | 2022-09-24 19:53 | PC.NURSE ---
[facility].
--- NOTE | 2022-09-24 21:02 | MHC.CM.ED ---
Addendum entered by Fabiola Singletary 09/24/22 21:12: CM note from 09/12 states Covid vax x1 and no booster. Original Note: CM met with patient at request of Dr. Dupree. A&Ox4. Lives alone. Uses rollator walker. No services. Pt thinks she needs a ANALYTICAL LAB ANALYST. Pt was recently admitted to [facility] with CVA. Started on methadone. Left AMA on 09/12. Pt states she needs PT, concerned about CVA effects. Methadone 92 mg. States she gets her methadone at [address] [place] [address] in [place]. [facility] [address] [place] [address] in [place] is listed on [employer] for methadone. Pt currently sleeping and unable to verify where she gets her methadone. Pt reports getting J&J vaccine and one booster. No HCP on file. HCP reviewed, completed and signed. Copies given. Uploaded into care port and [facility] Expanse. HCP/son Francis Tavarez ([phone]). Referrals placed. CM to follow for discharge planning.
[2022-09-24 21:09] VITALS: BP 131/80; PULSE 68; RESP 17; TEMP 36.7; O2SAT 96
--- NOTE | 2022-09-25 00:13 | PC.NURSE ---
assumed care of patient at 2300 - patient sleeping comfortably on stretcher. no apparent distress. will CTM
[2022-09-25 01:45] VITALS: BP 127/69; PULSE 71; RESP 16; TEMP 36.6; O2SAT 96
--- NOTE | 2022-09-25 01:46 | MHC.EDTECH ---
pt is resting peacefully , she has not voided since beginning of my shift, or ask for anything she has been sleeping
[2022-09-25 04:45] VITALS: BP 127/73; PULSE 69; RESP 17; TEMP 36.7; O2SAT 96
--- NOTE | 2022-09-25 06:27 | PC.NURSE ---
this RN spoke with nurse at [facility] n[facility] to verify patient's methadone dose. per Dalia staff member, patient is on 92 mg methadone and her last dose was yesterday 09/24/22 @ 0812. will fax info to pharmacy for patient to receive methadone today
--- NOTE | 2022-09-25 07:47 | PC.NURSE ---
PT in working with pt. Nichol tellez. Up to commode with PT
[2022-09-25 07:54] VITALS: BP 127/73; PULSE 69; O2SAT 96
[2022-09-25] MEDS: Aspirin 81 MG TAB.CHEW PO (09:33)
[2022-09-25] MEDS: Cholecalciferol (Vitamin D3) 25 MCG TABLET 50 MCG PO (09:33)
[2022-09-25] MEDS: methADONE HCl 20 MG/2 ML ORAL.CONC 90 MG PO (09:33)
[2022-09-25] MEDS: lisinopriL 40 MG TABLET PO (09:33)
[2022-09-25] MEDS: Atorvastatin Calcium 40 MG TABLET PO (09:33)
--- NOTE | 2022-09-25 09:59 | MHC.CM.ED ---
Addendum entered by Becka Reza 09/25/22 11:37: None of the 3 local acute rehab facilities can offer a bed. Referral broadcasted to all acute rehab facilities within 50 miles. Original Note: Patient remains in ER overflow. Physical therapy eval completed. Acute rehab is recommended. Referral sent to all 3 acute rehabs. Continue to monitor for d/c needs.
--- NOTE | 2022-09-25 11:39 | PC.NURSE ---
assumed care of pt at 1100, pt resting quietly in room, RR event and unlabored.
--- NOTE | 2022-09-25 12:56 | MHC.CM.ED ---
No bed offers made at this time. Still waiting to hear from some acute rehabs. [facility] is willing to offer a bed when they have a female bed. They are unsure at this time when they will have a bed. care home facility referral broadcasted in the state [facility] to all facilities that can accept patients on Methadone. A total of 13 referrals made. Continue to monitor for d/c needs.
--- NOTE | 2022-09-25 14:06 | PC.NURSE ---
spoke with pt and explained benefits of staying in overflow vs main ED, quiet, more privacy, pt given sandwiches and applesauce, pt expressed that food in ED is like punishment because upstairs she could choose food. explained to pt that overflow gets the same food as the main ED. pt reports overhearing staff talking shit about patient earlier this morning. after talking w pt pt is amenable to staying, understands that she needs short-term rehab, provider at bedside reiterated the same information.
[2022-09-25 14:28] VITALS: BP 111/81; PULSE 72; RESP 12; TEMP 36.3; O2SAT 96
--- NOTE | 2022-09-25 14:30 | PC.NURSE ---
pt a&ox3, vss, resting quietly in bed watching tv.
--- NOTE | 2022-09-25 16:29 | PC.NURSE ---
pt requesting nicotine patch, provider notified.
[2022-09-25] MEDS: Nicotine 21 MG PATCH.TD24 TRANSDERMA (16:43)
--- NOTE | 2022-09-25 18:52 | PC.NURSE ---
pt didn't like dinner option, grilled cheese and tomato soup ordered for pt, pt eating in bed.
[2022-09-25 22:23] VITALS: BP 101/59; PULSE 65; RESP 17; O2SAT 93
[2022-09-26 06:21] VITALS: BP 114/63; PULSE 67; RESP 17; TEMP 36.6; O2SAT 97
[2022-09-26] MEDS: Aspirin 81 MG TAB.CHEW PO (08:57)
[2022-09-26] MEDS: Atorvastatin Calcium 40 MG TABLET PO (08:57)
[2022-09-26] MEDS: Cholecalciferol (Vitamin D3) 25 MCG TABLET 50 MCG PO (08:58)
--- NOTE | 2022-09-26 09:42 | MHC.EDTECH ---
pt asked to shower. retrieved some clothing for pt to change into and gave patient the items necessary to shower. pt has also been talking about leaving.
--- NOTE | 2022-09-26 09:48 | MHC.EDTECH ---
pt swearing and upset about not receiving the medication she requested from the nurse yet. Nurse is in the process of getting that medication.
[2022-09-26] MEDS: lisinopriL 40 MG TABLET PO (09:51)
[2022-09-26] MEDS: methADONE HCl 20 MG/2 ML ORAL.CONC 90 MG PO (09:52)
--- NOTE | 2022-09-26 10:01 | PC.NURSE ---
pt now does not want to leave AMA after I explained things regarding placement. her biggest obstacle is not smoking , offered patch or nicotine gum and she refused. I let Mojgan OTERO know and provider.
--- NOTE | 2022-09-26 10:12 | MHC.CM.ED ---
Patient remains in ER overflow. Received notification from [facility] that they will have a female bed today. HCR in [place] will need a guest methadone letter from patient's methadone clinic in [place]. Harriett, telesales supervisor is assisting CM with this. Patient will also need a [facility] Level 2 prior to transferring to facility. T/W already to [facility] for Level 1. Continue to monitor for d/c needs.
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
--- NOTE | 2022-09-26 10:53 | PC.NURSE ---
pt left ama. provider and CM aware
--- NOTE | 2022-09-26 11:00 | MHC.CM.ED ---
Received notification from Malaika RN that patient left AMA. Pauline made aware.
== END 2022-09-26 10:54 | disposition still patient (30) ==
PROVIDERS: Emergency Provider Emergency Medicine
DX: I63.81 Other cerebral infarction due to occlusion or stenosis of small artery (principal); R53.1 Weakness; G81.91 Hemiplegia, unspecified affecting right dominant side; R29.810 Facial weakness; Z20.822 Contact with and (suspected) exposure to COVID-19; I10 Essential (primary) hypertension; F19.10 Other psychoactive substance abuse, uncomplicated; F11.20 Opioid dependence, uncomplicated; F17.210 Nicotine dependence, cigarettes, uncomplicated; F12.90 Cannabis use, unspecified, uncomplicated; Z79.899 Other long term (current) drug therapy
CPT/HCPCS: 70450; 80048; 80076; 82077; 83735; 85025; 87635; 93005; 97162; 97166; 99284; 99285

== ENCOUNTER 2022-11-25 18:47 | Emergency (ER) | payer MEDICAID, SELFPAY ==
[2022-11-25 18:56] VITALS: BP 143/83; BP 200/100; PULSE 72; PULSE 78; RESP 16; TEMP 36.8; O2SAT 95; O2SAT 96; BMI 27.3
[2022-11-25 19:00] VITALS: PULSE 78; O2SAT 96
[2022-11-25 19:46] VITALS: BP 148/73; PULSE 64; RESP 15; TEMP 36.8; O2SAT 98
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
--- NOTE | 2022-11-25 20:53 | PC.NURSE ---
Patient refused CBC recollection. Provider notified.
[2022-11-25 20:59] LABS: Alanine Aminotransferase 14 U/L (0-31); Albumin Level 3.7 g/dL (3.5-5.0); Alkaline Phosphatase 130 U/L (39-117); Anion Gap 14 (12-20); Aspartate Amino Transferase 15 U/L (5-31); Bilirubin Total 0.3 mg/dL (0.0-1.0); Blood Urea Nitrogen 20 mg/dL (9-16); Calcium 9.5 mg/dL (8.4-10.2); Carbon Dioxide 23 mmol/L (22-29); Chloride 112 mmol/L (96-108); Creatinine Clr Calc Pharmacy 32.9; Estimated Glomerular Filt Rate 35; Glucose Random 126 mg/dL (60-115); Potassium 4.5 mmol/L (3.3-5.1); Sodium 144 mmol/L (135-145); Total Protein 6.6 g/dL (6.5-8.0)
[2022-11-25 21:00] LABS: Basophils Percent Auto 0.3 % (0-2); Eosinophils Absolute Auto 0.1 X10*3/uL (0.0-0.4); Eosinophils Percent Auto 0.7 % (0-4); Hematocrit 45.8 % (37.0-47.0); Hemoglobin 14.5 g/dl (12.0-16.0); Imm Gran Abs Auto 0.02 X10*3/uL (0.00-0.03); Imm Gran Pct Auto 0.2 % (0.0-0.4); Lymphocytes Percent Auto 42.8 % (20-40); Mean Corpuscular HGB Conc 31.7 g/dl (31.0-35.0); Mean Corpuscular Volume 85.1 fL (80.0-98.0); Mean Platelet Volume 9.1 fL (9.4-12.3); Monocytes Absolute Auto 0.6 X10*3/uL (0.1-1.2); Monocytes Percent Auto 6.7 % (2-11); Neutrophils Absolute Auto 4.6 x10*3/uL (2.0-8.3); Neutrophils Percent Auto 49.3 % (45-73); Platelet Count 268 X10*3/uL (160-400); Red Blood Count 5.38 X10*6/uL (4.20-5.50); White Blood Count 9.4 X10*3/uL (4.8-10.8)
[2022-11-25 22:03] LABS: Appearance Urine Cloudy; Color Urine Yellow; Glucose Urine UA >=1000 mg/dL (Negative); Leukocyte Esterase Urine Moderate (2+) (Negative); Nitrite Urine Negative (Negative); PH 5.5 (5.0-9.0); Specific Gravity - Urine 1.025 (1.005-1.025); UMIC TRIGGER UACC YES; Urine Blood Trace (Negative); Urine Ketones Trace mg/dL (Negative); Urine Protein Trace mg/dL (Neg-Trace)
[2022-11-25 22:12] LABS: Bacteria Urine 4+ (None Seen); Hyaline Casts Urine 0-2 /LPF (0-2); UACC Culture Trigger YES; WBC Urine >50 /HPF (0-5)
[2022-11-25 22:22] VITALS: RESP 18
[2022-11-25 22:31] LABS: Amphetamine Screen Urine Not Detected (Not Detect); Barbiturates, Urine Not Detected (Not Detect); Benzodiazepines Screen Urine Not Detected (Not Detect); Cannabinoid Screen Urine Not Detected (Not Detect); Cocaine Screen Urine POSITIVE (Not Detect); Fentanyl, urine POSITIVE (Not Detect); Opiate Screen Urine POSITIVE (Not Detect); Phencyclidine Screen Urine Not Detected (Not Detect)
== END 2022-11-25 23:58 | disposition home or self-care (01) ==
PROVIDERS: Emergency Provider Internal Medicine
DX: F11.129 Opioid abuse with intoxication, unspecified (principal); F14.129 Cocaine abuse with intoxication, unspecified; N39.0 Urinary tract infection, site not specified; Z79.899 Other long term (current) drug therapy
CPT/HCPCS: 36415; 80053; 80307; 81001; 81003; 84443; 85025; 87086; 99284

== ENCOUNTER 2023-01-05 23:13 | Emergency (ER) | payer MEDICAID, SELFPAY ==
--- NOTE | ~2023-01-05 | XR_ITS ---
EXAMINATION: XR ABDOMEN KUB CLINICAL INDICATION: Abdominal pain COMPARISON: CT abdomen pelvis 07/12/2019 TECHNIQUE: AP view of the abdomen. FINDINGS: Marked scoliosis convex to left is present centered at L1-L2. Surgical clips are present near the gallbladder fossa. The bowel gas pattern is unremarkable without obstruction. Moderate stool present in the descending colon. The lung bases are clear. XR/XR KUB IMPRESSION: No evidence of bowel obstruction. Moderate stool present in the descending colon.
[2023-01-05 23:19] VITALS: BP 148/78; BP 166/95; PULSE 85; PULSE 88; RESP 18; TEMP 36.8; O2SAT 98; BMI 20.3
[2023-01-05 23:28] LABS: Glucose, Whole Blood 96 mg/dL (60-115)
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
[2023-01-06 00:11] LABS: MANUAL DIFF FLAG NO
[2023-01-06 00:13] LABS: Basophils Percent Auto 0.4 % (0-2); Eosinophils Absolute Auto 0.1 X10*3/uL (0.0-0.4); Eosinophils Percent Auto 1.1 % (0-4); Hemoglobin 13.6 g/dl (12.0-16.0); Imm Gran Abs Auto 0.02 X10*3/uL (0.00-0.03); Imm Gran Pct Auto 0.2 % (0.0-0.4); Lymphocytes Absolute Auto 4.4 X10*3/uL (1.2-4.9); Lymphocytes Percent Auto 42.7 % (20-40); Mean Corpuscular HGB Conc 31.6 g/dl (31.0-35.0); Mean Corpuscular Hemoglobin 27.3 pg (27.0-33.0); Mean Corpuscular Volume 86.2 fL (80.0-98.0); Mean Platelet Volume 8.8 fL (9.4-12.3); Monocytes Absolute Auto 0.7 X10*3/uL (0.1-1.2); Monocytes Percent Auto 6.8 % (2-11); Neutrophils Percent Auto 48.8 % (45-73); Platelet Count 307 X10*3/uL (160-400); Red Blood Count 4.99 X10*6/uL (4.20-5.50); Red Cell Distribution Width 14.2 % (11.0-16.0); White Blood Count 10.3 X10*3/uL (4.8-10.8)
[2023-01-06 00:30] LABS: Ethanol < 10 mg/dL
[2023-01-06 00:33] LABS: Alanine Aminotransferase 18 U/L (0-31); Alkaline Phosphatase 121 U/L (39-117); Anion Gap 11 (12-20); Aspartate Amino Transferase 17 U/L (5-31); Bilirubin Total 0.5 mg/dL (0.0-1.0); Blood Urea Nitrogen 22 mg/dL (9-16); Calcium 9.7 mg/dL (8.4-10.2); Carbon Dioxide 28 mmol/L (22-29); Chloride 106 mmol/L (96-108); Creatinine Clr Calc Pharmacy 38.1; Estimated Glomerular Filt Rate 41; Glucose Random 83 mg/dL (60-115); Lipase 23 U/L (8-78); Potassium 3.7 mmol/L (3.3-5.1); Sodium 141 mmol/L (135-145); Total Protein 7.2 g/dL (6.5-8.0)
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
[2023-01-06 01:35] LABS: Appearance Urine Clear; Color Urine Yellow; Glucose Urine UA 100 mg/dL (Negative); Leukocyte Esterase Urine Trace (Negative); Nitrite Urine Negative (Negative); PH 5.5 (5.0-9.0); Specific Gravity - Urine 1.015 (1.005-1.025); UMIC TRIGGER UACC YES; Urine Blood Negative (Negative); Urine Ketones Negative (Negative); Urine Protein Negative (Neg-Trace)
[2023-01-06 01:40] LABS: Bacteria Urine None Seen (None Seen); RBC Urine 0-2 /HPF (0-2); Squamous Epithelial Cell Urine 0-2 /HPF (0-2); WBC Urine 0-5 /HPF (0-5)
[2023-01-06 01:44] LABS: Amphetamine Screen Urine Not Detected (Not Detect); Barbiturates, Urine Not Detected (Not Detect); Benzodiazepines Screen Urine Not Detected (Not Detect); Cannabinoid Screen Urine Not Detected (Not Detect); Cocaine Screen Urine POSITIVE (Not Detect); Fentanyl, urine POSITIVE (Not Detect); Opiate Screen Urine POSITIVE (Not Detect); Phencyclidine Screen Urine Not Detected (Not Detect)
== END 2023-01-06 02:15 | disposition home or self-care (01) ==
PROVIDERS: Emergency Provider Student in an Organized Health Care Education/Training Program
DX: K59.00 Constipation, unspecified (principal); R10.13 Epigastric pain; F11.10 Opioid abuse, uncomplicated; F14.10 Cocaine abuse, uncomplicated; Z79.899 Other long term (current) drug therapy
CPT/HCPCS: 36415; 74018; 80053; 80307; 81001; 82947; 83690; 85025; 99284

== ENCOUNTER 2023-04-19 23:41 | Emergency (ER) | payer MEDICAID, SELFPAY ==
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
[2023-04-19 23:43] VITALS: BP 159/104; PULSE 89; RESP 18; TEMP 36.7; O2SAT 95; BMI 29.3
--- NOTE | 2023-04-20 00:58 | MHC.EDTECH ---
Patient ambulated with walker to bathroom to give a urine sample.
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
--- NOTE | 2023-04-20 01:16 | MHC.EDTECH ---
Urine specimen collected and sent to lab.
[2023-04-20 01:21] LABS: Appearance Urine Clear; Color Urine Yellow; Glucose Urine UA Negative (Negative); Leukocyte Esterase Urine Trace (Negative); Nitrite Urine Negative (Negative); Specific Gravity - Urine 1.015 (1.005-1.025); UMIC TRIGGER UACC YES; Urine Blood Negative (Negative); Urine Ketones Negative (Negative); Urine Protein Negative (Neg-Trace)
[2023-04-20 01:32] LABS: Bacteria Urine None Seen (None Seen); Hyaline Casts Urine 0-2 /LPF (0-2); RBC Urine 0-2 /HPF (0-2); Squamous Epithelial Cell Urine 0-2 /HPF (0-2); WBC Urine 0-5 /HPF (0-5)
[2023-04-20 01:38] LABS: Amphetamine Screen Urine Not Detected (Not Detect); Barbiturates, Urine Not Detected (Not Detect); Benzodiazepines Screen Urine Not Detected (Not Detect); Cannabinoid Screen Urine Not Detected (Not Detect); Cocaine Screen Urine POSITIVE (Not Detect); Fentanyl, urine POSITIVE (Not Detect); Opiate Screen Urine Not Detected (Not Detect); Phencyclidine Screen Urine Not Detected (Not Detect)
--- NOTE | 2023-04-20 01:44 | MHC.EDTECH ---
This tech assisted with a setup with a pelvic exam , patient refused to do exam. RN was made aware
--- NOTE | 2023-04-20 01:49 | PC.NURSE ---
and tech attempted to complete Pelvic exam. Pt refused. Pt left ama, refused to wait for discharge papers. aware.
== END 2023-04-20 02:00 | disposition left against medical advice (07) ==
PROVIDERS: Emergency Provider Emergency Medicine
DX: T76.21XA Adult sexual abuse, suspected, initial encounter (principal); Y00.XXXA Assault by blunt object, initial encounter; Y07.031 Male partner, former, perpetrator of maltreatment and neglect; F19.10 Other psychoactive substance abuse, uncomplicated; R53.81 Other malaise; E11.9 Type 2 diabetes mellitus without complications; I10 Essential (primary) hypertension; F17.210 Nicotine dependence, cigarettes, uncomplicated; F12.90 Cannabis use, unspecified, uncomplicated; F11.20 Opioid dependence, uncomplicated; Z79.899 Other long term (current) drug therapy
CPT/HCPCS: 73610; 80307; 81001; 99283

== ENCOUNTER 2023-05-06 04:57 | Emergency (ER) | payer MEDICAID, SELFPAY ==
[2023-05-06 05:06] VITALS: BP 112/68; PULSE 87; RESP 18; TEMP 36.8; O2SAT 95; BMI 23.1
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
[2023-05-06 08:00] VITALS: BP 126/93; PULSE 83; RESP 16; TEMP 37; O2SAT 97
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
--- NOTE | 2023-05-06 09:43 | PC.NURSE ---
[facility]pd at bedside for interview
--- NOTE | 2023-05-06 09:46 | PC.NURSE ---
refused interview with hpd
[2023-05-06 10:04] VITALS: BP 162/93; PULSE 86; RESP 16; TEMP 36.7; O2SAT 98
--- NOTE | 2023-05-06 10:31 | PC.NURSE ---
patient states that she goes to methadone clinic in [place]. states that her dose is 72mg daily - dose not verified at this time. trung tineo notified that pt needs dose verified.
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
--- NOTE | 2023-05-06 10:48 | HE.PHANOTE ---
re: methadone verification last dose 72 mg given 05/05 at [facility] [place]
[2023-05-06 13:31] VITALS: BP 149/95; PULSE 78; RESP 16; TEMP 36.9; O2SAT 100
--- NOTE | 2023-05-06 13:36 | PC.NURSE ---
JESSE kit performed and completed. logged with security and [employer] contacted. pt resting comfortably in no apparent distress. call mendez placed within reach.
[2023-05-06 15:40] VITALS: BP 197/103; PULSE 82; RESP 16; TEMP 36.9; O2SAT 99
--- NOTE | 2023-05-06 15:42 | PC.NURSE ---
pt asking about methadone dose - methadone dose verified at this time. provider aware of pt's request. pt's BP elevated at 190/99. states that she takes 40mg lisinopril daily but did not take am dose - will notify provider. pt also verbalizing 8/10 body pain at this time but does not want pain medication - only asking for methadone. pt resting comfortably in no apparent distress. call mendez placed within reach.
[2023-05-06] MEDS: methADONE HCl 20 MG/2 ML ORAL.CONC 72 MG PO (15:51)
--- NOTE | 2023-05-06 15:53 | PC.NURSE ---
pt's methadone administered per provider order. ED provider aware that pt is currently hypertensive.
--- NOTE | 2023-05-06 15:59 | MHC.EDTECH ---
this tech went to pts room to draw3 lab, pt refused stating I have no blood . Explanation of the importance of these labs were said to the pt. Pt continued to refuse. RN aware
--- NOTE | 2023-05-06 16:05 | PC.NURSE ---
tech attempted to draw labs from pt but pt refused. will reattempt shortly.
--- NOTE | 2023-05-06 16:25 | PC.NURSE ---
ED Provider Ben spoke w/ pt to discuss plan of care at this time. pt now accepting for tech to draw and send labs. pt also states that she agrees to starting ativiral medications for a month if she is able to eat something. provider approved regular diet.
[2023-05-06] MEDS: Post Exposure Medication Kit 1 KIT PO (17:24)
--- NOTE | 2023-05-06 17:25 | PC.NURSE ---
post exposure kit provided to patient, medication administration instructions provided to patient. pt states that she does not wish to start medication at this time and wants to start medication regimen tomorrow.
--- NOTE | 2023-05-06 17:53 | PC.NURSE ---
md at bedside for education. pt refusing medications, to provide urine sample. pt aware of plan of care for discharge.
--- NOTE | 2023-05-06 18:18 | PC.NURSE ---
pt dc at this time to wr in . phone charging for pt to call for ride home.
[2023-05-07 03:47] LABS: HIV Num 1 15.94 S/CO (0.00-0.99)
[2023-05-07 03:54] LABS: HBS Num1 > 1000.00 mIU/mL (0-7.99); HBsAGNum1 0.27 S/CO (0.00-0.99); Hepatitis A Antibody IgM 0.21 Index (0-0.79); Hepatitis B Surface Antigen Negative (Negative); ~HepC Num1 13.77 S/CO (0.00-0.79); ~Hepatitis A Antibody IgM Nonreactive (Nonreactive); ~Hepatitis B Surface Antibody REACTIVE (Nonreactive); ~Hepatitis C Antibody Reactive (Nonreactive)
[2023-05-07 05:13] LABS: HIV AB/AG Nonreactive (Nonreactive); HIV Num 2 0.05 S/CO; HIV Num 3 0.05 S/CO
[2023-05-07 05:14] LABS: HBc Num2 6.59 S/CO; HBc Num3 6.52 S/CO; Hepatitis B Core Antibody Reactive (Nonreactive)
== END 2023-05-06 18:25 | disposition home or self-care (01) ==
PROVIDERS: Emergency Medicine; Emergency Provider Internal Medicine
DX: T76.21XA Adult sexual abuse, suspected, initial encounter (principal); X58.XXXA Exposure to other specified factors, initial encounter; F19.10 Other psychoactive substance abuse, uncomplicated; I10 Essential (primary) hypertension; E11.69 Type 2 diabetes mellitus with other specified complication; F17.210 Nicotine dependence, cigarettes, uncomplicated
CPT/HCPCS: 36415; 86704; 86706; 86709; 86803; 87340; 87389; 99283; 99284

== ENCOUNTER 2023-05-29 15:58 | Outpatient (REF) | payer MEDICAID, SELFPAY ==
[2023-05-29 17:25] LABS: MANUAL DIFF FLAG NO
[2023-05-29 17:28] LABS: Basophils Percent Auto 0.6 % (0-2); Eosinophils Absolute Auto 0.1 X10*3/uL (0.0-0.4); Eosinophils Percent Auto 2.1 % (0-4); Hemoglobin 15.1 g/dl (12.0-16.0); Imm Gran Abs Auto 0.01 X10*3/uL (0.00-0.03); Imm Gran Pct Auto 0.1 % (0.0-0.4); Lymphocytes Absolute Auto 2.9 X10*3/uL (1.2-4.9); Lymphocytes Percent Auto 42.5 % (20-40); Mean Corpuscular HGB Conc 32.1 g/dl (31.0-35.0); Mean Corpuscular Hemoglobin 27.7 pg (27.0-33.0); Mean Corpuscular Volume 86.2 fL (80.0-98.0); Mean Platelet Volume 10.3 fL (9.4-12.3); Monocytes Absolute Auto 0.5 X10*3/uL (0.1-1.2); Monocytes Percent Auto 7.6 % (2-11); Neutrophils Absolute Auto 3.2 x10*3/uL (2.0-8.3); Neutrophils Percent Auto 47.1 % (45-73); Platelet Count 267 X10*3/uL (160-400); Red Blood Count 5.45 X10*6/uL (4.20-5.50); Red Cell Distribution Width 13.5 % (11.0-16.0); White Blood Count 6.7 X10*3/uL (4.8-10.8)
[2023-05-29 17:44] LABS: Alanine Aminotransferase 21 U/L (0-31); Albumin Level 3.9 g/dL (3.5-5.0); Alkaline Phosphatase 122 U/L (39-117); Anion Gap 13 (12-20); Aspartate Amino Transferase 17 U/L (5-31); Bilirubin Direct 0.1 mg/dL (0.0-0.5); Bilirubin Total 0.3 mg/dL (0.0-1.0); Blood Urea Nitrogen 17 mg/dL (9-16); Calcium 10.1 mg/dL (8.4-10.2); Carbon Dioxide 26 mmol/L (22-29); Chloride 105 mmol/L (96-108); Cholesterol 163 mg/dL (<200); Estimated Glomerular Filt Rate 55; Glucose Random 140 mg/dL (60-115); HDL Cholesterol 49 mg/dL (>40); LDL Cholesterol Calculated 72 mg/dL (<100); Potassium 4.4 mmol/L (3.3-5.1); Sodium 140 mmol/L (135-145); Total Protein 7.5 g/dL (6.5-8.0); Triglycerides 210 mg/dL (<150)
[2023-05-29 17:58] LABS: Vitamin D 25-OH Total 33.3 ng/mL (>30)
== END 2023-05-29 15:59 | disposition home or self-care (01) ==
LOC: HO.HHCL 15:58
PROVIDERS: Visit Provider Student in an Organized Health Care Education/Training Program
DX: R53.83 Other fatigue (principal); E55.9 Vitamin D deficiency, unspecified
CPT/HCPCS: 36415; 80048; 80061; 80076; 82306; 85025

== ENCOUNTER 2023-10-18 01:38 | Emergency (ER) | payer MEDICAID, SELFPAY ==
[2023-10-18 01:44] VITALS: BP 146/92; PULSE 65; O2SAT 98; BMI 23.3
--- NOTE | 2023-10-18 01:52 | PC.NURSE ---
hpd at bedside to collect story at this time.
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
[2023-10-18 03:15] VITALS: BP 151/93; PULSE 67; RESP 16; TEMP 36.4; O2SAT 97
--- NOTE | 2023-10-18 06:00 | PC.NURSE ---
pt resting comfortably in stretcher resp even and unlabored nad.
[2023-10-18 06:01] VITALS: BP 152/85; PULSE 82; RESP 16; TEMP 36.5; O2SAT 96
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
== END 2023-10-18 06:36 | disposition home or self-care (01) ==
PROVIDERS: Emergency Provider Emergency Medicine
DX: Z04.71 Encounter for examination and observation following alleged adult physical abuse (principal)
CPT/HCPCS: 99283

== ENCOUNTER 2024-02-02 05:17 | Emergency (ER) | payer MEDICAID, SELFPAY ==
--- NOTE | ~2024-02-02 | XR_ITS ---
EXAMINATION: XR LUMBOSACRAL SPINE CLINICAL INFORMATION: Fall. Back pain. COMPARISON: Previous x-ray September 2021 TECHNIQUE: Three views of the lumbosacral spine. FINDINGS: There is rotatory scoliosis with curvature of the lower thoracic and upper lumbar spine to the left. Bone alignment is otherwise normal. No fracture or dislocation. There is multilevel degenerative disc disease greatest at L2-L3 and L5-S1. There is lower lumbar spine facet arthritis. XR/XR lumbar spine 2-3V IMPRESSION: No fracture or dislocation. Scoliosis and degenerative changes.
[2024-02-02 05:20] VITALS: BP 126/80; BP 148/81; PULSE 80; PULSE 91; RESP 20; TEMP 36.7; O2SAT 92; O2SAT 94; BMI 22.5
[2024-02-02 06:31] LABS: MANUAL DIFF FLAG NO
[2024-02-02 06:35] VITALS: BP 125/72; PULSE 65; RESP 13; TEMP 36.6; O2SAT 96
[2024-02-02 06:37] LABS: Basophils Absolute Auto 0.1 X10*3/uL (0.0-0.2); Basophils Percent Auto 0.6 % (0-2); Eosinophils Absolute Auto 0.1 X10*3/uL (0.0-0.4); Eosinophils Percent Auto 0.8 % (0-4); Hemoglobin 14.1 g/dl (12.0-16.0); INTERNATIONAL NORM RATIO 0.9 (0.9-1.1); Imm Gran Abs Auto 0.01 X10*3/uL (0.00-0.03); Imm Gran Pct Auto 0.1 % (0.0-0.4); Lymphocytes Absolute Auto 3.4 X10*3/uL (1.2-4.9); Lymphocytes Percent Auto 37.9 % (20-40); Mean Corpuscular HGB Conc 32.8 g/dl (31.0-35.0); Mean Corpuscular Hemoglobin 27.5 pg (27.0-33.0); Mean Corpuscular Volume 83.8 fL (80.0-98.0); Mean Platelet Volume 9.6 fL (9.4-12.3); Monocytes Absolute Auto 0.6 X10*3/uL (0.1-1.2); Monocytes Percent Auto 7.2 % (2-11); Neutrophils Absolute Auto 4.8 x10*3/uL (2.0-8.3); Neutrophils Percent Auto 53.4 % (45-73); Platelet Count 241 X10*3/uL (160-400); Red Blood Count 5.13 X10*6/uL (4.20-5.50); Red Cell Distribution Width 13.9 % (11.0-16.0); White Blood Count 8.9 X10*3/uL (4.8-10.8)
[2024-02-02 06:48] LABS: Alanine Aminotransferase 22 U/L (0-31); Albumin Level 3.8 g/dL (3.5-5.0); Alkaline Phosphatase 115 U/L (39-117); Anion Gap 11 (12-20); Aspartate Amino Transferase 17 U/L (5-31); Bilirubin Total 0.4 mg/dL (0.0-1.0); Blood Urea Nitrogen 26 mg/dL (9-16); Calcium 9.5 mg/dL (8.4-10.2); Carbon Dioxide 22 mmol/L (22-29); Chloride 109 mmol/L (96-108); Creatinine Clr Calc Pharmacy 34.8; Estimated Glomerular Filt Rate 45; Glucose Random 115 mg/dL (60-115); Potassium 4.3 mmol/L (3.3-5.1); Sodium 138 mmol/L (135-145); Total Protein 7.2 g/dL (6.5-8.0)
[2024-02-02 06:56] LABS: Troponin-I High Sensitivity < 2.7 ng/L (<3.5-17.0)
--- NOTE | 2024-02-02 07:21 | ED_ITS ---
HPI - Fall General Chief Complaint: Fall Stated Complaint: WEAKNESS, THROAT PAIN Time Seen by Provider: 02/02/24 07:11 Source: patient Mode of arrival: ambulatory Limitations: no limitations History of Present Illness ED Provider: DR. Martell HPI Narrative: [age] year female brought in by ambulance for evaluation of generalized weakness and evaluation of happened 2 days ago. Patient stated that she feels generalized weakness and generalized body ache and patient sustained a mechanical fall while she was walking with her walker causing pain in her lower back, patient stated that she was recently diagnosed hepatitis at [facility], no upper respiratory symptoms, no sick contacts, no recent travel. Patient admit to smoking crack cocaine often and also smokes cigarettes otherwise do not drink alcohol. Patient normally walk with a walker due to chronic back pain and scoliosis. Related Data Home Medications ?Medication ?Instructions ?Recorded ?Confirmed cholecalciferol (vitamin D3) 50 1 cap PO DAILY 09/11/22 09/24/22 mcg (2,000 unit) capsule (Vitamin D3) lisinopril 40 mg tablet 1 tab PO DAILY 09/11/22 05/06/23 methadone 10 mg/mL oral 72 mg PO DAILY 09/12/22 05/06/23 concentrate (Methadose) Previous Rx's ?Medication ?Instructions ?Recorded cefuroxime axetil 250 mg tablet 250 mg PO BID 7 days #14 tabs 11/25/22 emtricitabine 200 mg-tenofovir 1 tab PO DAILY #30 tabs 05/06/23 disoproxil fumarate 300 mg tablet (Truvada) raltegravir 400 mg tablet 400 mg PO BID #60 tabs 05/06/23 (Isentress) nitrofurantoin 100 mg PO BID #14 caps 02/02/24 monohydrate/macrocrystals 100 mg capsule (Macrobid) Allergies Allergy/AdvReac Type Severity Reaction Status Date / Time No Known Allergies Allergy Verified 02/02/24 05:28 [No Known Allergies*] Review of Systems 2 Review of Systems: All other systems are reviewed and are negative Constitutional: Reports as per HPI and Reports no additional constitutional complaints Eyes: Reports as per HPI and Reports no additional eye complaints Reports system reviewed and no additional complaints, except as documented Cardiovascular: Reports as per HPI and Reports no additional cardiovascular complaints Respiratory: Reports as per HPI and Reports no additional respiratory complaints Gastrointestinal: Reports as per HPI and Reports no additional gastrointestinal complaints Genitourinary: Reports no additional female genitourinary complaints Musculoskeletal: Reports no additional musculoskeletal complaints Skin/Breast: Reports system reviewed and no additional complaints, except as docu Psychiatric: Reports no additional psychiatric complaints Endocrine: Reports no additional endocrine complaints Hematologic/Lymphatic: Reports no additional hematologic/lymphatic complaints Allergic/Immunologic: Reports no additional allergic/immunologic complaints Reports system reviewed and no additional complaints, except as documented and Reports Abnormal speech present [facility] Past Medical History Medical History No known health problems Borderline diabetes Substance abuse Hypertension Social History Social History Household Members: None Housing: Apartment Do you presently have visiting nurse or other home services: No Alcohol intake: never Patient Tobacco Use Status: Current everyday Tobacco user Tobacco use type: Cigarette Cigarettes Per Day: 3 Smoked in Last 30 Days: Yes Second Hand Smoke Exposure: No Use of substances other than those prescribed or required for medical reasons: Yes Substance Use Type: Marijuana Advance Directives: Yes Advance Directives on File: Yes Advance Directives Date on File: 09/24/22 service: No Current occupational status: unemployed Physical Exam 2 Vital Signs: Vital Signs: Last Vital Signs Temp 97.7 F 02/02/24 13:02 Pulse 68 02/02/24 13:02 Resp 16 02/02/24 13:02 BP 137/74 02/02/24 13:02 Pulse Ox 99 02/02/24 13:02 O2 Del Method Room Air 02/02/24 13:02 BMI result Body Mass Index 22.5 Vital signs have been reviewed and appear to be correct. Blood pressure elevated. Heart rate normal. Respiratory rate normal. Temperature normal. Oxygen saturation normal. Appearance: Alert. Oriented X3. No acute distress. Head: Normal external exam. Normocephalic. Atraumatic. No Ramirez signs noted. No raccoon eyes noted Eyes: PERRLA. EOMI. Conjunctiva and sclera normal. Eyelids normal. ENT: TM's Normal. Pharynx normal. Uvula midline. Moist mucous membranes. No trismus noted. No drooling noted. No muffled voice noted. Neck: Normal inspection. Neck supple. FROM. No adenopathy. Thyroid Normal. No meningeal signs. No neck mass noted. CVS: Normal heart rate and rhythm. Heart sound normal. No murmurs noted. Pulses normal throughout. Respiratory: No respiratory distress. Painless inspiration. Breath sounds normal. No wheezes/rales/rhonchi noted. Chest nontender. No accessory muscle usage noted or decreased air movement noted. Abdomen: Soft and nontender. Bowel sounds normal in all 4 quadrants. No distention noted. No organomegaly noted. No visible injury noted. Back: No CVA tenderness. Full range of motion noted. Skin: Skin warm and dry. Normal skin color. Normal skin turgor. No rashes/lesions/lacerations noted. Extremities: No lower extremity edema. Extremities exhibit normal range of motion. Extremities nontender. Neuro: Oriented X 3. Cranial nerve exam: II-XII are grossly intact No motor deficit. No sensory deficit. Reflexes normal. Course Reevaluation(s) Reevaluation #1: Labs is not revealing for patient's symptoms except mild UTI will start the patient on Macrobid and encouraged to drink plenty of fluids. Polysubstance abuse. Time: 13:07 Medical Decision Making Differential Diagnosis Differential Diagnoses: The differential diagnosis associated with the presentation includes (ACS, viral syndrome, pneumonia, pneumothorax, pleural effusion, electrolyte derangement, severe anemia, UTI.) Admission/Observation Consideration of admission/observation: Escalation of care including admission/observation considered Lab Data MDM Lab Attestation statement: I reviewed the patient's lab results. 02/02/24 06:27 02/02/24 06:27 Labs: Lab Results 02/02/24 02/02/24 Range/Units 06:27 11:19 WBC 8.9 (4.8-10.8) X10*3/uL RBC 5.13 (4.20-5.50) X10*6/uL Hgb 14.1 (12.0-16.0) g/dl Hct 43.0 (37.0-47.0) % MCV 83.8 (80.0-98.0) fL MCH 27.5 (27.0-33.0) pg MCHC 32.8 (31.0-35.0) g/dl RDW 13.9 (11.0-16.0) % Plt Count 241 (160-400) X10*3/uL MPV 9.6 (9.4-12.3) fL Immature Gran % (Auto) 0.1 (0.0-0.4) % Neut % (Auto) 53.4 (45-73) % Lymph % (Auto) 37.9 (20-40) % [place] % (Auto) 7.2 (2-11) % Eos % (Auto) 0.8 (0-4) % Baso % (Auto) 0.6 (0-2) % Lymph # (Auto) 3.4 (1.2-4.9) X10*3/uL [place] # (Auto) 0.6 (0.1-1.2) X10*3/uL Eos # (Auto) 0.1 (0.0-0.4) X10*3/uL Baso # (Auto) 0.1 (0.0-0.2) X10*3/uL Abs Immat Gran (auto) 0.01 (0.00-0.03) X10*3/uL Absolute Neuts (auto) 4.8 (2.0-8.3) x10*3/uL Absolute Nucleated RBC 0.000 (0.0-0.012) X10*3/uL Nucleated RBC % (auto) 0.0 (0.0-0.2) /100WBC PT 11.0 L (11.1-13.3) SEC INR 0.9 (0.9-1.1) Sodium 138 (135-145) mmol/L Potassium 4.3 (3.3-5.1) mmol/L Chloride 109 H (96-108) mmol/L Carbon Dioxide 22 (22-29) mmol/L Anion Gap 11 L (12-20) BUN 26 H (9-16) mg/dL Creatinine 1.22 (0.5-1.4) mg/dL Estim Creat Clear Calc 34.8 Estimated GFR 45 Random Glucose 115 (60-115) mg/dL Calcium 9.5 (8.4-10.2) mg/dL Total Bilirubin 0.4 (0.0-1.0) mg/dL AST 17 (5-31) U/L ALT 22 (0-31) U/L Alkaline Phosphatase 115 (39-117) U/L Troponin I High Sens < 2.7 (<3.5-17.0) ng/L Total Protein 7.2 (6.5-8.0) g/dL Albumin 3.8 (3.5-5.0) g/dL Urine Color Yellow Urine Appearance Clear Urine pH 5.0 (5.0-9.0) Ur Specific [place] 1.025 (1.005-1.025) Urine Protein Negative (Neg-Trace) mg/dL Urine Glucose (UA) Negative (Negative) mg/dL Urine Ketones Negative (Negative) mg/dL Urine Blood Negative (Negative) Urine Nitrite Negative (Negative) Ur Leukocyte Esterase Moderate (2+) H (Negative) Urine RBC 0-2 (0-2) /HPF Urine WBC 11-20 H (0-5) /HPF Ur Squamous Epith Cells 3-5 (0-2) /HPF Urine Bacteria 2+ (None Seen) Hyaline Casts 0-2 (0-2) /LPF Urine Opiates Screen POSITIVE H (Not Detect) Ur Buprenorphine Scrn Not Detected (Not Detect) ng/mL Ur Oxycodone Screen Not Detected (Not Detect) ng/mL Urine Methadone Screen Positive H (Not Detect) ng/mL Urine Fentanyl Screen POSITIVE H (Not Detect) Ur Barbiturates Screen Not Detected (Not Detect) Ur Phencyclidine Scrn Not Detected (Not Detect) Ur Amphetamines Screen Not Detected (Not Detect) U Benzodiazepines Scrn Not Detected (Not Detect) Urine Cocaine Screen POSITIVE H (Not Detect) U Marijuana (THC) Screen Not Detected (Not Detect) Influenza Type A (PCR) NEGATIVE (Negative) Influenza Type B (PCR) NEGATIVE (Negative) RSV RNA Qual (PCR) NEGATIVE (Negative) SARS-CoV-2 RNA (RT-PCR) NEGATIVE (Negative) Independent Interpretation I performed an independent interpretation of an: Plain X-Ray (Lumbar spine x- ray:No fracture or dislocation. Scoliosis and degenerative changes.) Radiology Impression Discussion of test interpretation with radiology: I have reviewed the radiologist's reading. Discharge Plan Discharge Clinical Impression: UTI (urinary tract infection), Episode of generalized weakness, Polysubstance abuse Patient Disposition: Home, Self-Care Instructions: Urinary Tract Infection in Women (DC) Prescriptions: New nitrofurantoin monohyd/m-cryst [Macrobid] 100 mg capsule 100 mg PO BID Qty: 14 0RF Rx Instructions: must administer with a meal/food No Action lisinopril 40 mg tablet 1 tab PO DAILY cholecalciferol (vitamin D3) [Vitamin D3] 50 mcg (2,000 unit) capsule 1 cap PO DAILY methadone [Methadose] 10 mg/mL Concentrate 72 mg PO DAILY cefuroxime axetil 250 mg tablet 250 mg PO BID 7 Days Qty: 14 0RF emtricitabine-tenofovir (TDF) [Truvada] 200-300 mg tablet 1 tab PO DAILY Qty: 30 0RF Isentress 400 mg tablet 400 mg PO BID Qty: 60 0RF Referrals: [facility] [Primary Care Provider] - Print Language: Rw[place]an
[2024-02-02 08:17] VITALS: BP 136/82; PULSE 66; RESP 12; TEMP 36.6; O2SAT 99
[2024-02-02 10:30] VITALS: BP 128/76; PULSE 67; RESP 18; TEMP 36.6; O2SAT 99
[2024-02-02 11:26] LABS: Appearance Urine Clear; Color Urine Yellow; Glucose Urine UA Negative (Negative); Leukocyte Esterase Urine Moderate (2+) (Negative); Nitrite Urine Negative (Negative); Specific Gravity - Urine 1.025 (1.005-1.025); UMIC TRIGGER UACC YES; Urine Blood Negative (Negative); Urine Ketones Negative (Negative); Urine Protein Negative (Neg-Trace)
[2024-02-02 11:31] LABS: Bacteria Urine 2+ (None Seen); Hyaline Casts Urine 0-2 /LPF (0-2); RBC Urine 0-2 /HPF (0-2); UACC Culture Trigger YES
[2024-02-02 11:38] LABS: Amphetamine Screen Urine Not Detected (Not Detect); Barbiturates, Urine Not Detected (Not Detect); Benzodiazepines Screen Urine Not Detected (Not Detect); Buprenorphine Scr Not Detected (Not Detect); Cannabinoid Screen Urine Not Detected (Not Detect); Cocaine Screen Urine POSITIVE (Not Detect); Fentanyl, urine POSITIVE (Not Detect); Methadone Screen, Urine Positive (Not Detect); Opiate Screen Urine POSITIVE (Not Detect); Oxycodone Screen Urine Not Detected (Not Detect); Phencyclidine Screen Urine Not Detected (Not Detect)
[2024-02-02 12:17] LABS: Influenza A PCR NEGATIVE (Negative); Influenza B PCR NEGATIVE (Negative); Resp Syncy Virus RNA Qual PCR NEGATIVE (Negative); SARS COV2 PCR INHOUSE NEGATIVE (Negative)
[2024-02-02 13:02] VITALS: BP 137/74; PULSE 68; RESP 16; TEMP 36.5; O2SAT 99
[2024-02-02] MEDS: Nitrofurantoin Monohyd/M-Cryst 100 MG CAPSULE PO (13:30)
[2024-02-02 13:35] VITALS: BP 137/74; PULSE 68; RESP 16; TEMP 36.5; O2SAT 99
== END 2024-02-02 13:59 | disposition home or self-care (01) ==
PROVIDERS: Emergency Provider Emergency Medicine
DX: N39.0 Urinary tract infection, site not specified (principal); R53.1 Weakness; F19.10 Other psychoactive substance abuse, uncomplicated; I10 Essential (primary) hypertension; M54.50 Low back pain, unspecified; Z79.899 Other long term (current) drug therapy; Z03.818 Encounter for observation for suspected exposure to other biological agents ruled out
CPT/HCPCS: 0241U; 36415; 72100; 80053; 80307; 81001; 84484; 85025; 85610; 87086; 99283; 99284

== ENCOUNTER 2024-02-22 03:27 | Emergency (ER) | payer MEDICAID, SELFPAY ==
--- NOTE | 2024-02-22 | ECG_ITS ---
Test Reason : HYPERTENSION Blood Pressure : / mmHG Vent. Rate : 072 BPM Atrial Rate : 072 BPM P-R Int : 130 ms QRS Dur : 084 ms QT Int : 424 ms P-R-T Axes : 045 033 039 degrees QTc Int : 464 ms Normal sinus rhythm Possible Left atrial enlargement Minimal voltage criteria for LVH, may be normal variant ( Sokolow-Viveros ) Borderline ECG When compared with ECG of 24-SEP-2022 15:07, No significant change was found Referred By: Generic ED Physician Electronically Signed By:Praveen Nicole
[2024-02-22 03:34] VITALS: BP 160/118; PULSE 97; O2SAT 98; BMI 22.6
[2024-02-22 03:37] VITALS: BP 176/98; PULSE 85; RESP 18; TEMP 36.7; O2SAT 96
--- NOTE | 2024-02-22 03:41 | PC.NURSE ---
neuros intact at this time
[2024-02-22 04:05] LABS: Basophils Percent Auto 0.4 % (0-2); Eosinophils Absolute Auto 0.1 X10*3/uL (0.0-0.4); Eosinophils Percent Auto 0.7 % (0-4); Hematocrit 41.6 % (37.0-47.0); Hemoglobin 13.8 g/dl (12.0-16.0); Imm Gran Abs Auto 0.01 X10*3/uL (0.00-0.03); Imm Gran Pct Auto 0.1 % (0.0-0.4); Lymphocytes Absolute Auto 3.4 X10*3/uL (1.2-4.9); MANUAL DIFF FLAG NO; Mean Corpuscular HGB Conc 33.2 g/dl (31.0-35.0); Mean Corpuscular Hemoglobin 27.7 pg (27.0-33.0); Mean Corpuscular Volume 83.4 fL (80.0-98.0); Mean Platelet Volume 8.5 fL (9.4-12.3); Monocytes Absolute Auto 0.6 X10*3/uL (0.1-1.2); Monocytes Percent Auto 7.1 % (2-11); Neutrophils Percent Auto 54.7 % (45-73); Platelet Count 260 X10*3/uL (160-400); Red Blood Count 4.99 X10*6/uL (4.20-5.50); Red Cell Distribution Width 14.5 % (11.0-16.0); White Blood Count 9.1 X10*3/uL (4.8-10.8)
[2024-02-22 04:22] LABS: Alanine Aminotransferase 24 U/L (0-31); Albumin Level 3.9 g/dL (3.5-5.0); Alkaline Phosphatase 115 U/L (39-117); Anion Gap 11 (12-20); Aspartate Amino Transferase 24 U/L (5-31); Bilirubin Total 0.4 mg/dL (0.0-1.0); Blood Urea Nitrogen 12 mg/dL (9-16); Calcium 9.9 mg/dL (8.4-10.2); Carbon Dioxide 25 mmol/L (22-29); Chloride 111 mmol/L (96-108); Creatinine Clr Calc Pharmacy 38.5; Estimated Glomerular Filt Rate 50; Ethanol < 10 mg/dL; Glucose Fasting 89 mg/dL (60-99); Potassium 3.7 mmol/L (3.3-5.1); Sodium 143 mmol/L (135-145); Total Protein 7.1 g/dL (6.5-8.0)
[2024-02-22 04:27] LABS: Troponin-I High Sensitivity 3.2 ng/L (<3.5-17.0)
[2024-02-22 05:23] VITALS: BP 163/94; PULSE 69; RESP 17; TEMP 36.6; O2SAT 98
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
--- NOTE | 2024-02-22 09:00 | PC.NURSE ---
Pt given urine cup and wipe for a UA & drug screen. Pt declined toilet hat. Pt stated she understood how to collect the sample. After pt came out of the restroom this RN asked pt for the sample and pt stated she forgot
[2024-02-22 09:17] VITALS: BP 163/94; PULSE 69; RESP 17; TEMP 36.6; O2SAT 98
== END 2024-02-22 09:10 | disposition left against medical advice (07) ==
PROVIDERS: Emergency Provider Emergency Medicine Emergency Medical Services
DX: R53.1 Weakness (principal); Z53.29 Procedure and treatment not carried out because of patient's decision for other reasons; E11.9 Type 2 diabetes mellitus without complications; I10 Essential (primary) hypertension; B20 Human immunodeficiency virus [HIV] disease; F11.20 Opioid dependence, uncomplicated; F19.10 Other psychoactive substance abuse, uncomplicated; F17.210 Nicotine dependence, cigarettes, uncomplicated; Z86.73 Personal history of transient ischemic attack (TIA), and cerebral infarction without residual deficits; Z79.899 Other long term (current) drug therapy
CPT/HCPCS: 36415; 80053; 80307; 84484; 85025; 93005; 99283; 99284

== ENCOUNTER → 2024-02-22 03:45 | Outpatient (BNV) | payer MEDICAID, SELFPAY | PROVIDERS: Emergency Provider Emergency Medicine Emergency Medical Services; Visit Provider Internal Medicine Cardiovascular Disease | DX: I10 Essential (primary) hypertension (principal); R94.31 Abnormal electrocardiogram [ECG] [EKG] | CPT/HCPCS: 93010 ==

== ENCOUNTER 2024-03-19 20:01 | Emergency (ER) | payer MEDICAID, SELFPAY ==
[2024-03-19 20:21] VITALS: BP 200/110; PULSE 88; O2SAT 99
[2024-03-19 20:25] VITALS: BP 180/90; PULSE 77; RESP 20; TEMP 36.9; O2SAT 98; BMI 26.0
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
--- NOTE | 2024-03-19 20:31 | ECG_ITS ---
Test Reason : chest pain Blood Pressure : / mmHG Vent. Rate : 071 BPM Atrial Rate : 071 BPM P-R Int : 130 ms QRS Dur : 082 ms QT Int : 414 ms P-R-T Axes : 043 015 032 degrees QTc Int : 449 ms Normal sinus rhythm Minimal voltage criteria for LVH, may be normal variant ( Sokolow-Viveros ) Borderline ECG When compared with ECG of 22-FEB-2024 03:45, No significant change was found Referred By: Carina Nix Electronically Signed By:CHET TAY MD
[2024-03-19 21:06] LABS: MANUAL DIFF FLAG NO
[2024-03-19 21:08] LABS: Appearance Urine Clear; Color Urine Yellow; Glucose Urine UA Negative (Negative); Leukocyte Esterase Urine Moderate (2+) (Negative); Nitrite Urine Negative (Negative); PH 5.5 (5.0-9.0); Specific Gravity - Urine 1.025 (1.005-1.025); UMIC TRIGGER UACC YES; Urine Blood Negative (Negative); Urine Ketones Negative (Negative); Urine Protein Negative (Neg-Trace)
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
[2024-03-19 21:11] LABS: Basophils Absolute Auto 0.1 X10*3/uL (0.0-0.2); Basophils Percent Auto 0.6 % (0-2); Eosinophils Absolute Auto 0.1 X10*3/uL (0.0-0.4); Eosinophils Percent Auto 1.5 % (0-4); Hematocrit 45.9 % (37.0-47.0); Hemoglobin 14.9 g/dl (12.0-16.0); Imm Gran Abs Auto 0.02 X10*3/uL (0.00-0.03); Imm Gran Pct Auto 0.2 % (0.0-0.4); Lymphocytes Absolute Auto 3.6 X10*3/uL (1.2-4.9); Lymphocytes Percent Auto 40.6 % (20-40); Mean Corpuscular HGB Conc 32.5 g/dl (31.0-35.0); Mean Corpuscular Hemoglobin 27.4 pg (27.0-33.0); Mean Corpuscular Volume 84.4 fL (80.0-98.0); Monocytes Absolute Auto 0.6 X10*3/uL (0.1-1.2); Monocytes Percent Auto 6.7 % (2-11); Neutrophils Absolute Auto 4.5 x10*3/uL (2.0-8.3); Neutrophils Percent Auto 50.4 % (45-73); Platelet Count 264 X10*3/uL (160-400); Red Blood Count 5.44 X10*6/uL (4.20-5.50); Red Cell Distribution Width 14.1 % (11.0-16.0); White Blood Count 8.9 X10*3/uL (4.8-10.8)
[2024-03-19 21:18] LABS: Amphetamine Screen Urine Not Detected (Not Detect); Barbiturates, Urine Not Detected (Not Detect); Benzodiazepines Screen Urine Not Detected (Not Detect); Buprenorphine Scr Not Detected (Not Detect); Cannabinoid Screen Urine Not Detected (Not Detect); Cocaine Screen Urine POSITIVE (Not Detect); Fentanyl, urine POSITIVE (Not Detect); Methadone Screen, Urine Positive (Not Detect); Opiate Screen Urine POSITIVE (Not Detect); Oxycodone Screen Urine Not Detected (Not Detect); Phencyclidine Screen Urine Not Detected (Not Detect)
[2024-03-19 21:19] LABS: Bacteria Urine 2+ (None Seen); Hyaline Casts Urine 0-2 /LPF (0-2); RBC Urine 0-2 /HPF (0-2)
[2024-03-19 21:22] LABS: Alanine Aminotransferase 13 U/L (0-31); Albumin Level 4.3 g/dL (3.5-5.0); Alkaline Phosphatase 130 U/L (39-117); Anion Gap 11 (12-20); Aspartate Amino Transferase 16 U/L (5-31); Bilirubin Total 0.5 mg/dL (0.0-1.0); Blood Urea Nitrogen 18 mg/dL (9-16); Calcium 10.1 mg/dL (8.4-10.2); Carbon Dioxide 26 mmol/L (22-29); Chloride 109 mmol/L (96-108); Creatinine Clr Calc Pharmacy 38.1; Estimated Glomerular Filt Rate 50; Glucose Random 123 mg/dL (60-115); Lipase 16 U/L (8-78); Magnesium 2.2 mg/dL (1.6-2.6); Sodium 142 mmol/L (135-145); Total Protein 7.9 g/dL (6.5-8.0)
[2024-03-19 21:30] LABS: Troponin-I High Sensitivity 3.7 ng/L (<3.5-17.0)
[2024-03-19 21:32] LABS: UACC Culture Trigger YES
== END 2024-03-19 21:15 | disposition left against medical advice (07) ==
PROVIDERS: Physician Assistant Medical; Emergency Provider Emergency Medicine
DX: R07.9 Chest pain, unspecified (principal); I10 Essential (primary) hypertension; Z53.21 Procedure and treatment not carried out due to patient leaving prior to being seen by health care provider; F11.20 Opioid dependence, uncomplicated; Z79.899 Other long term (current) drug therapy
CPT/HCPCS: 36415; 80053; 80307; 81001; 83690; 83735; 84484; 85025; 87086; 93005; 99281; 99283

== ENCOUNTER → 2024-03-19 20:31 | Outpatient (BNV) | payer MEDICAID, SELFPAY | PROVIDERS: Emergency Provider Emergency Medicine; Visit Provider Internal Medicine Cardiovascular Disease | DX: R07.9 Chest pain, unspecified (principal); R94.31 Abnormal electrocardiogram [ECG] [EKG] | CPT/HCPCS: 93010 ==

== ENCOUNTER 2024-04-16 14:11 | Outpatient (REF) | payer MEDICAID, SELFPAY | END 2024-04-16 14:12 | disposition home or self-care (01) | LOC: HO.HHCX 14:11 | PROVIDERS: Visit Provider Nurse Practitioner | DX: Z13.89 Encounter for screening for other disorder (principal) ==

== ENCOUNTER 2024-05-07 16:09 | Emergency (ER) | payer MEDICAID, SELFPAY ==
[2024-05-07 16:23] VITALS: BP 230/100; PULSE 83; O2SAT 97
--- NOTE | 2024-05-07 16:39 | MHC.EDTECH ---
link trainer maintenance worker Sarah [phone]
[2024-05-07 16:55] VITALS: BP 130/85; PULSE 72; RESP 14; TEMP 36.7; O2SAT 97; BMI 34.7
[2024-05-07 16:58] VITALS: RESP 14
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
--- NOTE | 2024-05-07 17:21 | PC.NURSE ---
the advocate and SANE nurse was notified awaiting a call back
--- NOTE | 2024-05-07 17:25 | PC.NURSE ---
GINNY called back and states that they should be here within and hour
[2024-05-07 17:50] LABS: Alanine Aminotransferase 18 U/L (0-31); Aspartate Amino Transferase 17 U/L (5-31); Creatinine Clr Calc Pharmacy 22.3; Estimated Glomerular Filt Rate 41
--- NOTE | 2024-05-07 17:55 | PC.NURSE ---
Pt initially agreeable to STI prophylaxis treatment however while attempting to administer pt appears sad and unwillingly to take meds despite education given. Reassurance given with some effect however pt still refused meds. Pt is agreement to await SANE nurse for exam. Carmen POPE spoke with certified social workers in health care who obtained more information regarding pt and failure to thrive and not eating delivered meals. Plan for frida psych after SANE exam. Pt advocate now here
--- NOTE | 2024-05-07 19:52 | PC.NURSE ---
patient escorted into pod by security essentially patient had been combative in main ed and attemtped to leave, patient interviewed after change management facilitator and client stated she was not current on any medicatin besides methadone which [facility].
[2024-05-07 23:20] LABS: Ethanol < 10 mg/dL
[2024-05-08 03:14] LABS: Amphetamine Screen Urine Not Detected (Not Detect); Barbiturates, Urine Not Detected (Not Detect); Benzodiazepines Screen Urine Not Detected (Not Detect); Buprenorphine Scr Not Detected (Not Detect); Cannabinoid Screen Urine Not Detected (Not Detect); Cocaine Screen Urine POSITIVE (Not Detect); Fentanyl, urine POSITIVE (Not Detect); Methadone Screen, Urine Positive (Not Detect); Opiate Screen Urine POSITIVE (Not Detect); Oxycodone Screen Urine Not Detected (Not Detect); Phencyclidine Screen Urine Not Detected (Not Detect)
[2024-05-08 03:19] LABS: Appearance Urine Clear; Color Urine Yellow; Glucose Urine UA Negative (Negative); Leukocyte Esterase Urine Moderate (2+) (Negative); Nitrite Urine Negative (Negative); Specific Gravity - Urine 1.015 (1.005-1.025); UMIC TRIGGER UACC YES; Urine Blood Negative (Negative); Urine Ketones Negative (Negative); Urine Protein Negative (Neg-Trace)
[2024-05-08 03:23] LABS: Bacteria Urine 1+ (None Seen); Hyaline Casts Urine 0-2 /LPF (0-2); RBC Urine 0-2 /HPF (0-2); UACC Culture Trigger YES
[2024-05-08 04:06] LABS: Syphilis Screen Nonreactive (Nonreactive)
[2024-05-08 04:32] LABS: HBS Num1 > 1000.00 mIU/mL (0-7.99); HBsAGNum1 0.38 S/CO (0.00-0.99); HIV AB/AG Nonreactive (Nonreactive); HIV Num 1 0.08 S/CO (0.00-0.99); Hepatitis B Surface Antigen Negative (Negative); ~HepC Num1 13.55 S/CO (0.00-0.79); ~Hepatitis B Surface Antibody REACTIVE (Nonreactive); ~Hepatitis C Antibody Reactive (Nonreactive)
[2024-05-08 05:26] VITALS: RESP 14
--- NOTE | 2024-05-08 05:27 | MHC.EDTECH ---
pt refusing vital signs at this time.
--- NOTE | 2024-05-08 07:01 | PC.NURSE ---
Assumed care of patient at 0645, patient appears to be sleeeping, respirations even and unlabored, no apparent distress noted. Continue plan of care for CARE team eval this am
[2024-05-08 08:00] VITALS: PULSE 83; RESP 16; TEMP 36.6; O2SAT 97
--- NOTE | 2024-05-08 08:14 | HE.PHANOTE ---
METHADONE CONFIRMATION SHEET LAST DOSE 82 MG FROM [facility] ON 05/07 @ [id number]
[2024-05-08] MEDS: methADONE HCl 20 MG/2 ML ORAL.CONC 82 MG PO (09:19)
--- NOTE | 2024-05-08 10:40 | PHA.MEDREC ---
Addendum entered by Lucia Taveras RPh 05/08/24 10:42: Reviewed by [facility]. Original Note: Pharmacy Consult ? Medication Reconciliation Pharmacy has reviewed the medication reconciliation done by nurse. Patient is only on Methadone 82 mg daily
--- NOTE | 2024-05-08 11:31 | PC.NURSE ---
Pt continues to sleep, no apparent distress noted, respirations even and unlabored
--- NOTE | 2024-05-08 14:41 | MHC.CARE ---
Pt will remain in the pod overnight and be reassessed in the AM to determine if she has cleared up any more.? She was seen by psychiatry on a consult and pt appears to be clearer than she was this morning and yesterday evening when she presented.? Pt?s presentation appears to be substance related.
[2024-05-08 16:15] VITALS: BP 147/87; PULSE 79; RESP 14; TEMP 37; O2SAT 98
--- NOTE | 2024-05-08 19:36 | PC.NURSE ---
patient appears to remain at rest at present respirations are even and unlabored patient appears in no distress.
[2024-05-09 06:43] VITALS: RESP 18
--- NOTE | 2024-05-09 07:03 | PC.NURSE ---
Assumed care of patient at 0645. At this time the patient is lying quietly in their bed. No signs of distress observed. Breathing is even and unlabored.
[2024-05-09] MEDS: methADONE HCl 20 MG/2 ML ORAL.CONC 82 MG PO (08:27)
[2024-05-09] MEDS: Naloxone HCl Nasal TAKE HOME 4 MG SPRAY 8 MG NOSTRILALT (08:56)
[2024-05-09 09:01] VITALS: BP 147/87; PULSE 79; RESP 14; TEMP 37; O2SAT 98
--- NOTE | 2024-05-09 09:20 | PC.NURSE ---
Discharge Note PT was provided with last dose letter upon discharge.
== END 2024-05-09 09:21 | disposition home or self-care (01) ==
PROVIDERS: Physician Assistant Medical; Emergency Provider Emergency Medicine Emergency Medical Services
DX: F14.10 Cocaine abuse, uncomplicated (principal); F17.210 Nicotine dependence, cigarettes, uncomplicated; T76.21XA Adult sexual abuse, suspected, initial encounter; I10 Essential (primary) hypertension; Z86.73 Personal history of transient ischemic attack (TIA), and cerebral infarction without residual deficits; Z79.899 Other long term (current) drug therapy; Z51.81 Encounter for therapeutic drug level monitoring; Z20.2 Contact with and (suspected) exposure to infections with a predominantly sexual mode of transmission
CPT/HCPCS: 36415; 80307; 81001; 82565; 84450; 84460; 86706; 86780; 86803; 87086; 87340; 87389; 99285; S9485

== ENCOUNTER 2024-06-11 11:01 | Outpatient (REF) | payer MEDICAID, SELFPAY ==
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
== END 2024-06-11 11:02 | disposition home or self-care (01) ==
LOC: HO.HHCX 11:01
PROVIDERS: Visit Provider Family Medicine
DX: M79.674 Pain in right toe(s) (principal)
CPT/HCPCS: 73660

== ENCOUNTER 2024-09-26 08:33 | Emergency (ER) | payer MEDICAID, SELFPAY ==
--- NOTE | ~2024-09-26 | CT_ITS ---
CLINICAL HISTORY: unwitnessed fall CT of the head without intravenous contrast Comparison: CT/REG/SR - CT HEAD/BRAIN WO IV CON - 09/24/22 14:22 EST Findings: The ventricles and sulci are prominent, consistent with generalized cerebral parenchymal volume loss. The ventricles are symmetric and the basilar cisterns are intact. Mild periventricular, deep and subcortical white matter hypodensities are nonspecific but statistically reflect the sequela of chronic small vessel ischemic change. No intracranial hemorrhage, extra-axial fluid collection, midline shift or mass-effect is evident. No evidence of acute large vessel or territorial ischemia. Brainstem and cerebellum unremarkable. Vascular calcifications indicate intracranial atherosclerosis. The imaged portion of the paranasal sinuses demonstrates mild heller sinusitis. No mastoid effusions are demonstrated. The orbital contents are unremarkable. Calvarium is intact. Impression: 1. No CT evidence of acute intracranial abnormality. 2. Cerebral volume loss, intracranial atherosclerotic disease and mild sequela of chronic small vessel ischemic disease. This document has been electronically signed by: Santhosh Richter MD on 09/26/2024 12:59:41
--- NOTE | ~2024-09-26 | CT_ITS ---
CLINICAL HISTORY: unwitnesed falls CT cervical spine without intravenous contrast Comparison: None Findings: Craniocervical junction: No occipital condylar fractures. No evidence of atlantooccipital dissociation. The anterior and posterior arch and lateral masses of C1 are intact. Odontoid and atlanto-dental interval intact. The pars interarticularis of C2 is intact. There is normal vertebral body heights with no evidence of compression fracture. There is normal cervical alignment. No locked or perched facets. No spinous process fractures. Lordotic curvature is preserved. The retropharyngeal soft tissues are not widened. Segmental analysis as below (MR is more accurate in the evaluation of disc herniation and central canal pathology): C2-C3: No herniation or stenosis. C3-C4: No herniation or stenosis. C4-C5: Degenerative facet hypertrophy C5-C6: Uncovertebral body spurs and degenerative facet hypertrophy C6-C7: Uncovertebral body spurs and degenerative facet hypertrophy C7-T1: No herniation or stenosis. The bones are without evidence of lytic or blastic lesion. Lung apices are unremarkable. Impression: 1. Negative CT cervical spine for acute process. This document has been electronically signed by: Santhosh Richter MD on 09/26/2024 13:03:39
--- NOTE | ~2024-09-26 | XR_ITS ---
CLINICAL HISTORY: severe lower back pain s p fall 3 views lumbar spine Comparison: CR/SR - XR LUMBAR SPINE 2-3V - 02/02/24 08:23 EDT Findings: Stable wedge compression fracture T10 vertebral body.No acute vertebral body compression fractures Stable broad-based levoscoliosis without lateral listhesis. Multilevel degenerative facet arthropathy. Pedicles and transverse processes intact. Lordotic curvature is preserved. Right lateral vertebral body osteophytes thoracolumbar junction. Normal bone mineralization. Surgical clips right upper quadrant. Sacroiliac joints unremarkable. Impression: 1. Stable degenerative spondylosis without listhesis. Stable wedge compression fracture T10. Levoscoliosis. No acute compression fractures. This document has been electronically signed by: Santhosh Richter MD on 09/26/2024 11:49:53
[2024-09-26 08:39] VITALS: BP 148/80; PULSE 84; O2SAT 98; BMI 21.6
--- NOTE | 2024-09-26 08:40 | ECG_ITS ---
Test Reason : WEAKNESS Blood Pressure : */* mmHG Vent. Rate : 78 BPM Atrial Rate : 78 BPM P-R Int : 122 ms QRS Dur : 80 ms QT Int : 404 ms P-R-T Axes : 51 44 52 degrees QTcB Int : 460 ms Normal sinus rhythm Possible Left atrial enlargement Anterior infarct , age undetermined Abnormal ECG When compared with ECG of 19-Mar-2024 20:48, No significant change was found Referred By: Daphne Haynes Electronically Signed By: CHET TAY MD
--- NOTE | 2024-09-26 08:42 | ED_ITS ---
HPI - Fall General Chief Complaint: Fall Stated Complaint: UNWITNESSED FALL Source: patient, EMS and old records reviewed Mode of arrival: EMS Limitations: no limitations History of Present Illness ED Provider: Rafita Haynes PA-C HPI Narrative: 64 yo female with history of homelessness, polysubstance abuse, HTN, CVA 2022 who presents to the ER via EMS for evaluation of unwitnessed fall that occurred at the [facility] today. She also reportedly had 3 falls yesterday. She c/o 05/21 low back pain. She states she just gets weak and falls. She reports chronic left leg swelling and weakness, she walks with a limp and using a walker. Today she thinks she tripped and fell backward, hitting her elbow, then her back and head. Denies LOC. Not on blood thinners. She arrives to the ER lethargic. She denies all drug and alcohol use. complaint: fall Onset (ago): unknown Fall witnessed: no Place fall occurred: other ([facility]) Loss of consciousness: unsure Location of injury: back Related Data Home Medications ?Medication ?Instructions ?Recorded ?Confirmed methadone 10 mg/mL oral 82 mg PO DAILY 09/12/22 05/08/24 concentrate (Methadose) Allergies Allergy/AdvReac Type Severity Reaction Status Date / Time No Known Allergies Allergy Verified 09/26/24 18:52 [No Known Allergies*] Review of Systems 2 Review of Systems: Yes all other systems are reviewed and are negative [facility] Past Medical History Medical History No known health problems Borderline diabetes Substance abuse Hypertension Social History Social History Household Members: None Housing: Apartment Do you presently have visiting nurse or other home services: No Alcohol intake: never Patient Tobacco Use Status: Current everyday Tobacco user Tobacco use type: Cigarette Cigarettes Per Day: 3 Second Hand Smoke Exposure: No Use of substances other than those prescribed or required for medical reasons: Yes Substance Use Type: Crack/Cocaine and Heroin Advance Directives: Yes Advance Directives on File: Yes Advance Directives Date on File: 09/23/22 Do you have a plan to hurt others: No Plan service: No Current occupational status: unemployed Physical Exam 2 Vital Signs: Vital Signs: Last Vital Signs Temp 97.8 F 09/26/24 17:57 Pulse 98 09/26/24 17:57 Resp 18 09/26/24 17:57 BP 166/91 H 09/26/24 17:57 Pulse Ox 100 09/26/24 17:57 O2 Del Method Room Air 09/26/24 17:57 BMI result Body Mass Index 21.6 Appearance: Lethargic arouses to voice Oriented X3. No acute distress. Head: normocephalic, atraumatic. Eyes: Pupils equal, round and reactive to light. ENT: Pharynx normal. No tonsillar swelling or exudate. Neck: Normal inspection. Neck supple. no midline tenderness. FROM CVS: Normal heart rate and rhythm. Pulses normal. Respiratory: No respiratory distress. Breath sounds normal. Abdomen: Soft and nontender. +BS x4 Back: lumar area is tender bilaterally and centrally. no ecchymosis on the back Skin: Skin warm and dry. Normal skin color. Normal skin turgor. No rashes. Extremities: No lower extremity edema. No joint swelling. Neuro/psych: Oriented X 3. slow but steady gait, CN II-XII intact. slowed speech at times, normal cognition. Course Reevaluation(s) Reevaluation #1: upon re-evaluation patient found to have a white powder residue around her nostrils. she was reportedly up ambulating to the bathroom with her walker. security called to search belongings. Time: 12:26 Medical Decision Making Medical Decision Making MDM Narrative: 64 yo female with history of homelessness, polysubstance abuse, CVA and HTN noncompliant with lisinopril who presents to the ER for evaluation of recurrent falls and AMS. Lethargic but arouses to voice and answers questions appropriately. No evidence of trauma on examination. She c/o lower back pain which is acute on chronic. Labs showing no significant abnormalities. Utox +++ for all opiates and cocaine. CT head without acute abnormalities. XR lumbar spine showing stable t10 wedge fx, no acute compression deformities. patient up and ambulating to the bathroom, very kyphotic with ambulation. found to have drugs on her and powder reside on her nose after going to the bathroom. she was monitored and had no evidence of respiratory depression. she was counseled on polysubstance use. Differential Diagnosis Differential Diagnoses: The differential diagnosis associated with the presentation includes polysubstance use, acute intoxication, CVA, intracranial bleed, overdose, lumbar fracture Admission/Observation Consideration of admission/observation: Escalation of care including admission/observation considered Lab Data MDM Lab Attestation statement: I reviewed the patient's lab results. normal CBC, no major metabolic derangements, utox +++++ 09/26/24 09:29 09/26/24 09:29 Labs: Lab Results 09/26/24 09/26/24 09/26/24 Range/Units 09:29 09:39 10:51 WBC 7.9 (4.8-10.8) X10*3/uL RBC 5.57 H (4.20-5.50) X10*6/uL Hgb 14.7 (12.0-16.0) g/dl Hct 45.6 (37.0-47.0) % MCV 81.9 (80.0-98.0) fL MCH 26.4 L (27.0-33.0) pg MCHC 32.2 (31.0-35.0) g/dl RDW 14.6 (11.0-16.0) % Plt Count 283 (160-400) X10*3/uL MPV 9.1 L (9.4-12.3) fL Immature Gran % (Auto) 0.3 (0.0-0.4) % Neut % (Auto) 68.0 (45-73) % Lymph % (Auto) 23.5 (20-40) % Pitkin % (Auto) 5.5 (2-11) % Eos % (Auto) 2.2 (0-4) % Baso % (Auto) 0.5 (0-2) % Lymph # (Auto) 1.9 (1.2-4.9) X10*3/uL Pitkin # (Auto) 0.4 (0.1-1.2) X10*3/uL Eos # (Auto) 0.2 (0.0-0.4) X10*3/uL Baso # (Auto) 0.0 (0.0-0.2) X10*3/uL Abs Immat Gran (auto) 0.02 (0.00-0.03) X10*3/uL Absolute Neuts (auto) 5.4 (2.0-8.3) x10*3/uL Absolute Nucleated RBC 0.000 (0.0-0.012) X10*3/uL Nucleated RBC % (auto) 0.0 (0.0-0.2) /100WBC VBG pH 7.40 (7.32-7.43) VBG pCO2 41 mmHg VBG pO2 53 mmHg VBG HCO3 26 (22-26) mmol/L VBG O2 Saturation 86.0 % VBG Base Excess 1.3 mmol/L Sodium 140 (135-145) mmol/L Potassium 3.9 (3.3-5.1) mmol/L Chloride 107 (96-108) mmol/L Carbon Dioxide 23 (22-29) mmol/L Anion Gap 14 (12-20) BUN 16 (9-16) mg/dL Creatinine 0.83 (0.5-1.4) mg/dL Estim Creat Clear Calc 55.5 Estimated GFR > 60 Random Glucose 114 (60-115) mg/dL Calcium 9.8 (8.4-10.2) mg/dL Magnesium 1.8 (1.6-2.6) mg/dL Total Bilirubin 0.6 (0.0-1.0) mg/dL Direct Bilirubin 0.2 (0.0-0.5) mg/dL AST 22 (5-31) U/L ALT 17 (0-31) U/L Alkaline Phosphatase 129 H (39-117) U/L Troponin I High Sens < 2.7 (<3.5-17.0) ng/L Total Protein 7.8 (6.5-8.0) g/dL Albumin 4.0 (3.5-5.0) g/dL Urine Color Yellow Urine Appearance Clear Urine pH 7.5 (5.0-9.0) Ur Specific I[place]quois 1.020 (1.005-1.025) Urine Protein Negative (Neg-Trace) mg/dL Urine Glucose (UA) Negative (Negative) mg/dL Urine Ketones Negative (Negative) mg/dL Urine Blood Negative (Negative) Urine Nitrite Negative (Negative) Ur Leukocyte Esterase Small (1+) H (Negative) Urine RBC 0-2 (0-2) /HPF Urine WBC 0-5 (0-5) /HPF Ur Squamous Epith Cells 3-5 (0-2) /HPF Urine Bacteria Trace (None Seen) Hyaline Casts 0-2 (0-2) /LPF Urine Opiates Screen POSITIVE H (Not Detect) Ur Buprenorphine Scrn Positive H (Not Detect) ng/mL Ur Oxycodone Screen Not Detected (Not Detect) ng/mL Urine Methadone Screen Positive H (Not Detect) ng/mL Urine Fentanyl Screen POSITIVE H (Not Detect) Ur Barbiturates Screen Not Detected (Not Detect) Ur Phencyclidine Scrn Not Detected (Not Detect) Ur Amphetamines Screen Not Detected (Not Detect) U Benzodiazepines Scrn Not Detected (Not Detect) Urine Cocaine Screen POSITIVE H (Not Detect) U Marijuana (THC) Screen Not Detected (Not Detect) Ethyl Alcohol < 10 mg/dL Influenza Type A (PCR) NEGATIVE (Negative) Influenza Type B (PCR) NEGATIVE (Negative) RSV RNA Qual (PCR) NEGATIVE (Negative) SARS-CoV-2 RNA (RT-PCR) NEGATIVE (Negative) Independent Interpretation I performed an independent interpretation of an: EKG and CT Scan Interpretation: ekg w/ normal sinus rhyth, hr 78 bpm, normal QTc, no ST segment elevations or depressions CT head without acute bleed or edema Radiology Impression Discussion of test interpretation with radiology: I have reviewed the radiologist's reading. Independent Historian Clinical information obtained from an independent historian. History obtained from or confirmed by: EMS External Record Review External record reviewed: Inpatient record, Outpatient record, Prior outpatient labs and Prior outpatient radiology Prescription Management I considered prescription management with: Pain Medication Chronic Conditions Patient?s care impacted by: Hypertension and Other (polysubstance abuse) Social Determinants Patient?s care significantly limited by Social Determinants of Health including: Inadequate housing, Problems related to primary support group and Other Social Determinant of Health Critical Care Time Critical Care Time Critical Care Time: Yes Total Critical Care Time: 33 Attestation: I have personally provided critical care time exclusive of time spent on separately billable procedures. Time includes review of lab data, radiology results,multiple bedside re-evaluation of mental status and hemodynamics, and monitoring for potential decompensation. Intervention performed as documented. Discharge Plan Discharge Clinical Impression: Recurrent falls, Polysubstance abuse Patient Disposition: Home, Self-Care Instructions: Polysubstance Abuse (ED) Additional Instructions: DO NOT USE DRUGS, THEY CAN KILL YOU Take your methadone as directed at your clinic If you develop new or worsening symptoms call 911 or come back to the ER for further evaluation. Prescriptions: No Action methadone [Methadose] 10 mg/mL Concentrate 82 mg PO DAILY Patient Comments: verified with [facility] Don- Last Dose 05/07/24 at 0850 Interventions: ED Discharge Assessment Last Done: 09/26/24 17:57 Discharge Date/Time: 09/26/24 17:57 Print Language: Lao
[2024-09-26 08:47] VITALS: BP 173/89; PULSE 84; RESP 16; TEMP 36.9; O2SAT 98
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
[2024-09-26 09:41] LABS: MANUAL DIFF FLAG NO
[2024-09-26 09:42] LABS: Basophils Percent Auto 0.5 % (0-2); Eosinophils Absolute Auto 0.2 X10*3/uL (0.0-0.4); Eosinophils Percent Auto 2.2 % (0-4); Hematocrit 45.6 % (37.0-47.0); Hemoglobin 14.7 g/dl (12.0-16.0); Imm Gran Abs Auto 0.02 X10*3/uL (0.00-0.03); Imm Gran Pct Auto 0.3 % (0.0-0.4); Lymphocytes Absolute Auto 1.9 X10*3/uL (1.2-4.9); Lymphocytes Percent Auto 23.5 % (20-40); Mean Corpuscular HGB Conc 32.2 g/dl (31.0-35.0); Mean Corpuscular Hemoglobin 26.4 pg (27.0-33.0); Mean Corpuscular Volume 81.9 fL (80.0-98.0); Mean Platelet Volume 9.1 fL (9.4-12.3); Monocytes Absolute Auto 0.4 X10*3/uL (0.1-1.2); Monocytes Percent Auto 5.5 % (2-11); Neutrophils Absolute Auto 5.4 x10*3/uL (2.0-8.3); Platelet Count 283 X10*3/uL (160-400); Red Blood Count 5.57 X10*6/uL (4.20-5.50); Red Cell Distribution Width 14.6 % (11.0-16.0); White Blood Count 7.9 X10*3/uL (4.8-10.8)
[2024-09-26 09:43] LABS: Venous Blood Gas Refer to POC result
[2024-09-26 09:45] LABS: VBG Base Excess 1.3 mmol/L; VBG HCO3 26 mmol/L (22-26); VBG pCO2 41 mmHg; VBG pO2 53 mmHg
--- NOTE | 2024-09-26 09:45 | PC.NURSE ---
pt agreeable to having labs obtained by [email or web address].
[2024-09-26 09:55] LABS: Ethanol < 10 mg/dL
[2024-09-26 09:58] LABS: Alanine Aminotransferase 17 U/L (0-31); Alkaline Phosphatase 129 U/L (39-117); Anion Gap 14 (12-20); Aspartate Amino Transferase 22 U/L (5-31); Bilirubin Direct 0.2 mg/dL (0.0-0.5); Bilirubin Total 0.6 mg/dL (0.0-1.0); Blood Urea Nitrogen 16 mg/dL (9-16); Calcium 9.8 mg/dL (8.4-10.2); Carbon Dioxide 23 mmol/L (22-29); Chloride 107 mmol/L (96-108); Creatinine Clr Calc Pharmacy 55.5; Estimated Glomerular Filt Rate > 60; Glucose Random 114 mg/dL (60-115); Magnesium 1.8 mg/dL (1.6-2.6); Potassium 3.9 mmol/L (3.3-5.1); Sodium 140 mmol/L (135-145); Total Protein 7.8 g/dL (6.5-8.0)
[2024-09-26 10:13] LABS: Troponin-I High Sensitivity < 2.7 ng/L (<3.5-17.0)
[2024-09-26 10:20] LABS: Influenza A PCR NEGATIVE (Negative); Influenza B PCR NEGATIVE (Negative); Resp Syncy Virus RNA Qual PCR NEGATIVE (Negative); SARS COV2 PCR INHOUSE NEGATIVE (Negative)
[2024-09-26 10:57] LABS: Appearance Urine Clear; Color Urine Yellow; Glucose Urine UA Negative (Negative); Leukocyte Esterase Urine Small (1+) (Negative); Nitrite Urine Negative (Negative); PH 7.5 (5.0-9.0); UMIC TRIGGER UACC YES; Urine Blood Negative (Negative); Urine Ketones Negative (Negative); Urine Protein Negative (Neg-Trace)
--- NOTE | 2024-09-26 11:00 | PC.NURSE ---
1:1 assist OOB and pt assisted to restroom. strong/steady gait noted w/ walker. urine obtained/sent to lab.
[2024-09-26 11:10] LABS: Amphetamine Screen Urine Not Detected (Not Detect); Bacteria Urine Trace (None Seen); Barbiturates, Urine Not Detected (Not Detect); Benzodiazepines Screen Urine Not Detected (Not Detect); Buprenorphine Scr Positive (Not Detect); Cannabinoid Screen Urine Not Detected (Not Detect); Cocaine Screen Urine POSITIVE (Not Detect); Fentanyl, urine POSITIVE (Not Detect); Hyaline Casts Urine 0-2 /LPF (0-2); Methadone Screen, Urine Positive (Not Detect); Opiate Screen Urine POSITIVE (Not Detect); Oxycodone Screen Urine Not Detected (Not Detect); Phencyclidine Screen Urine Not Detected (Not Detect); RBC Urine 0-2 /HPF (0-2); UACC Culture Trigger YES; WBC Urine 0-5 /HPF (0-5)
--- NOTE | 2024-09-26 12:15 | PC.NURSE ---
provider went into room to discharge patient. pt noted to have white powder/residue under her nostrils. pt remains easily arousable to verbal stimuli. pt states, it is just boogers and denies drug use. security called so belongings could be searched. paraphernalia found in pt's belongings/obtained by security.
[2024-09-26 12:50] VITALS: BP 177/105; PULSE 78; RESP 13; TEMP 36.5; O2SAT 99
--- NOTE | 2024-09-26 13:02 | PC.NURSE ---
1:1 assist OOB and pt assisted to restroom. strong/steady gait noted w/ walker. urine obtained/sent to lab.
[2024-09-26 16:44] VITALS: BP 166/91; PULSE 98; RESP 18; TEMP 36.6; O2SAT 100
[2024-09-26 17:57] VITALS: BP 166/91; PULSE 98; RESP 18; TEMP 36.6; O2SAT 100
== END 2024-09-26 17:57 | disposition home or self-care (01) ==
PROVIDERS: Physician Assistant; Emergency Provider Emergency Medicine
DX: S39.92XA Unspecified injury of lower back, initial encounter (principal); S09.90XA Unspecified injury of head, initial encounter; M79.89 Other specified soft tissue disorders; F17.210 Nicotine dependence, cigarettes, uncomplicated; F11.10 Opioid abuse, uncomplicated; F14.10 Cocaine abuse, uncomplicated; R51.9 Headache, unspecified; M54.50 Low back pain, unspecified; M54.2 Cervicalgia; W19.XXXA Unspecified fall, initial encounter; Y93.9 Activity, unspecified; Y92.9 Unspecified place or not applicable; Y99.9 Unspecified external cause status; Z79.899 Other long term (current) drug therapy; Z51.81 Encounter for therapeutic drug level monitoring; Z03.818 Encounter for observation for suspected exposure to other biological agents ruled out; Z91.81 History of falling
CPT/HCPCS: 0241U; 36415; 70450; 72100; 72125; 80048; 80076; 80307; 81001; 81003; 82803; 83735; 84484; 85025; 87086; 93005; 99284

== ENCOUNTER → 2024-09-26 08:40 | Outpatient (BNV) | payer MEDICAID, SELFPAY | PROVIDERS: Emergency Provider Emergency Medicine; Visit Provider Radiology Diagnostic Radiology | DX: M54.50 Low back pain, unspecified (principal); M47.896 Other spondylosis, lumbar region; S22.070A Wedge compression fracture of T9-T10 vertebra, initial encounter for closed fracture; G31.09 Other frontotemporal neurocognitive disorder; I67.2 Cerebral atherosclerosis; M50.321 Other cervical disc degeneration at C4-C5 level | CPT/HCPCS: 70450; 72100; 72125 ==

== ENCOUNTER → 2024-09-26 08:40 | Outpatient (BNV) | payer MEDICAID, SELFPAY | PROVIDERS: Emergency Provider Emergency Medicine; Visit Provider Internal Medicine Cardiovascular Disease | DX: R94.31 Abnormal electrocardiogram [ECG] [EKG] (principal); R53.1 Weakness | CPT/HCPCS: 93010 ==

== ENCOUNTER 2024-09-26 18:50 | Emergency (ER) | payer MEDICAID, SELFPAY ==
[2024-09-26 18:50] VITALS: BP 151/96; PULSE 102; RESP 22; TEMP 36.8; O2SAT 98; BMI 21.9
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
[2024-09-26] MEDS: methADONE HCl 20 MG/2 ML ORAL.CONC 67 MG PO (21:05)
[2024-09-27 02:06] VITALS: RESP 16
--- NOTE | 2024-09-27 04:12 | PC.NURSE ---
patient appears to be resting quietly with eyes closed in hallway, offering no complaints at this time.
[2024-09-27 06:29] VITALS: BP 186/81; PULSE 74; RESP 16; TEMP 36.2; O2SAT 99
[2024-09-27 11:40] VITALS: BP 143/71; PULSE 81; RESP 17; TEMP 36.9; O2SAT 98
[2024-09-27] MEDS: methADONE HCl 20 MG/2 ML ORAL.CONC 67 MG PO (18:11)
== END 2024-09-28 04:31 | disposition home or self-care (01) ==
PROVIDERS: Emergency Provider Emergency Medicine Emergency Medical Services
DX: R40.0 Somnolence (principal); F14.10 Cocaine abuse, uncomplicated; F11.10 Opioid abuse, uncomplicated; F17.210 Nicotine dependence, cigarettes, uncomplicated; Z59.00 Homelessness unspecified; Z71.51 Drug abuse counseling and surveillance of drug abuser
CPT/HCPCS: 99284

== ENCOUNTER 2025-01-08 12:08 | Outpatient (REF) | payer MEDICAID, SELFPAY ==
--- NOTE | ~2025-01-08 | XR_ITS ---
EXAMINATION: XR LUMBOSACRAL SPINE CLINICAL INFORMATION: 2 days of exacerbation of chronic low back pain, r/o compression fracture COMPARISON: Lumbar spine 09/26/2024 TECHNIQUE: Three views of the lumbosacral spine. FINDINGS: Moderate levoscoliosis of dorsolumbar spine. There is moderate bridging osteophyte right L2-3 disc level. The vertebral heights, alignment is preserved. Mild loss of L4-5 and L5-S1 disc height is seen . There is no visible fracture, lytic or sclerotic process. The paravertebral soft tissues are normal. SI joints are symmetrical and normal. Visualized pelvic bones are unremarkable. XR/XR lumbar spine 2-3V IMPRESSION: Moderate levoscoliosis dorsolumbar spine. There is moderate right bridging osteophyte at the L2-L3 disc level. Minimal degenerative disc changes L4-5 and L5-S1 disc levels. Electronically signed by: Jeremiah Alanis MD 01/08/2025 01:00 PM EDT
== END 2025-01-08 12:09 | disposition home or self-care (01) ==
LOC: HO.HHCX 12:08
PROVIDERS: Visit Provider Internal Medicine Geriatric Medicine
DX: M54.50 Low back pain, unspecified (principal); G89.29 Other chronic pain
CPT/HCPCS: 72100

== ENCOUNTER → 2025-01-08 12:10 | Outpatient (BNV) | payer MEDICAID, SELFPAY | PROVIDERS: Visit Provider Radiology Diagnostic Radiology | DX: M41.86 Other forms of scoliosis, lumbar region (principal) | CPT/HCPCS: 72100 ==

== ENCOUNTER 2025-03-10 09:58 | Emergency (ER) | payer MEDICAID, SELFPAY ==
[2025-03-10 10:06] VITALS: BP 112/62; PULSE 99; O2SAT 96
[2025-03-10 10:10] VITALS: BP 114/66; PULSE 82; RESP 16; TEMP 36.5; O2SAT 98; BMI 24.1
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
--- NOTE | 2025-03-10 11:34 | ED_ITS ---
HPI - General Adult General Chief complaint: Altered Mental Status Stated complaint: SEC 12 BY/FROM METHADONE CL,IN BR X2H Time Seen by Provider: 03/10/25 11:33 History of Present Illness ED Provider: Jin CHEGN narrative: The patient is a 64-year-old female. She is homeless. She uses methadone which she receives daily from the clinic. She apparently showed up for her usual methadone dose this morning. She was covered in stool and asked to use the bathroom. She went to the bathroom with the clinic but apparently spent 2 hours in the bathroom and seemed unable to care for herself. Ultimately an ambulance was called and she was brought here. Here the patient says that she is just very tired because she slept poorly last night because she is homeless. She says she was in a park last night. She says that other than methadone she only uses marijuana. She denies any other drug use or IV drug use. She denies any fever, sweats, chills. She does not want to have any blood work done. Related Data Home Medications ?Medication ?Instructions ?Recorded ?Confirmed methadone 10 mg/mL oral 82 mg PO DAILY 09/12/2204/13 concentrate (Methadose) Allergies Allergy/AdvReac Type Severity Reaction Status Date / Time No Known Allergies (No Known Allergy Verified 03/10/25 10:50 Allergies*) Review of Systems Review of Systems: Yes all other systems are reviewed and are negative PMFSH Past Medical History Medical History No known health problems Borderline diabetes Substance abuse Hypertension Social History Social History Household Members: None Housing: Apartment Do you presently have visiting nurse or other home services: No Alcohol intake: never Patient Tobacco Use Status: Current everyday Tobacco user Tobacco use type: Cigarette Cigarettes Per Day: 3 Second Hand Smoke Exposure: No Substance Use Type: Crack/Cocaine and Heroin Advance Directives Date on File: 09/23/22 service: No Current occupational status: unemployed Physical Exam ED Vital Signs: Vital Signs - 24 hr 03/10/25 10:10 03/10/25 12:29 03/10/25 13:38 Temperature 97.7 F 97.7 F Pulse Rate 82 87 87 Respiratory Rate 16 16 16 Blood Pressure 114/66 130/83 130/83 Pulse Oximetry 98 95 95 Oxygen Delivery Method Room Air Room Air Room Air BMI result Body Mass Index 24.1 Const Other: The patient is a 64-year-old female. She seems sleepy but arouses with stimulation. She does not seem in acute distress. HENMT Other: The face is symmetrical. ?Mucous membranes moist. Eyes Other: Pupils are small but not pinpoint. Conjunctivae are clear, extraocular movements are intact Neck Neck: Yes normal visual inspection and Yes full ROM Resp Effort & Inspection: normal respiratory effort Auscultation: clear to auscultation bilaterally Cardio Other: No murmur heard Rate: regular rate Rhythm: regular rhythm Heart sounds: S1 normal heart sound present and S2 normal heart sound present GI Other: Abdomen is soft and nontender Skin Other: Skin is dry and unremarkable Neuro Other: The patient is sleepy but responds appropriately to stimulation. She seems reasonably well oriented. She does not seem to have an altered mental status or seem obviously intoxicated. Cranial nerves are grossly intact. She moves her extremities symmetrically. No obvious focal finding. Extrem Other: There is no calf swelling or tenderness. No asymmetry. No peripheral edema. Medical Decision Making Medical Decision Making [facility] Narrative: The patient is a 64-year-old female with a history of homelessness and substance use disorder who was on methadone. At the methadone clinic today she seemed very impaired and an ambulance was called and she was sent here. Here she se emed very sleepy but not incoherent. She refused any phlebotomy. She agreed to an EKG and provided a urine specimen. Her urine specimen shows negative ketones. There is 2+ leukocyte esterase and 21-50 white cells but she denies any urinary symptoms. Urine tox screen is positive for opioids, methadone, fentanyl, and cocaine. The patient was initially quite sleepy but she rather abruptly became awake and agitated and insistent that she be discharged. She says that her primary care is at the [facility]. She denies urinary symptoms so I do not think there was an indication for antibiotics. She was discharged to follow up with [facility]. Lab Data Labs: Lab Results 03/10/25 Range/Units 12:22 Urine Color Yellow Urine Appearance Cloudy Urine pH 5.5 (5.0-9.0) Ur Specific Black 1.020 (1.005-1.025) Urine Protein Trace (Neg-Trace) mg/dL Urine Glucose (UA) Negative (Negative) mg/dL Urine Ketones Negative (Negative) mg/dL Urine Blood Trace H (Negative) Urine Nitrite Negative (Negative) Ur Leukocyte Esterase Moderate (2+) H (Negative) Urine RBC 6-10 H (0-2) /HPF Urine WBC 21-50 H (0-5) /HPF Ur Squamous Epith Cells 6-10 (0-2) /HPF Urine Bacteria 4+ (None Seen) Hyaline Casts 11-20 (0-2) /LPF Granular Casts Present Urine Opiates Screen POSITIVE H (Not Detect) Ur Buprenorphine Scrn Not Detected (Not Detect) ng/mL Ur Oxycodone Screen Not Detected (Not Detect) ng/mL Urine Methadone Screen Positive H (Not Detect) ng/mL Urine Fentanyl Screen POSITIVE H (Not Detect) Ur Barbiturates Screen Not Detected (Not Detect) Ur Phencyclidine Scrn Not Detected (Not Detect) Ur Amphetamines Screen Not Detected (Not Detect) U Benzodiazepines Scrn Not Detected (Not Detect) Urine Cocaine Screen POSITIVE H (Not Detect) U Marijuana (THC) Screen Not Detected (Not Detect) Discharge Plan Discharge Clinical Impression: Substance use disorder Patient Disposition: Home, Self-Care Additional Instructions: Please follow up soon with your regular doctor. Please try to avoid any other drugs then methadone. Return to the emergency room if worse. Prescriptions: No Action methadone [Methadose] 10 mg/mL Concentrate 82 mg PO DAILY Patient Comments: verified with [facility] Don- Last Dose 05/07/24 at 0850 Referrals: [facility] [Provider Group] Interventions: ED Discharge Assessment Last Done: 03/10/25 13:38 Discharge Date/Time: 03/10/25 14:10 Print Language: Citizen [place]
--- NOTE | 2025-03-10 11:43 | ECG_ITS ---
Test Reason : fatigue Blood Pressure : */* mmHG Vent. Rate : 86 BPM Atrial Rate : 86 BPM P-R Int : 120 ms QRS Dur : 114 ms QT Int : 350 ms P-R-T Axes : 69 69 56 degrees QTcB Int : 418 ms Normal sinus rhythm Normal ECG When compared with ECG of 26-Sep-2024 08:56, Nonspecific T wave abnormality now evident in Lateral leads Referred By: Edison Abdi Electronically Signed By: CHET TAY MD
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
[2025-03-10 12:29] VITALS: BP 130/83; PULSE 87; RESP 16; O2SAT 95
[2025-03-10 12:30] LABS: Appearance Urine Cloudy; Glucose Urine UA Negative (Negative); PH 5.5 (5.0-9.0); Specific Gravity - Urine 1.020 (1.005-1.025); UMIC TRIGGER UACC YES
[2025-03-10 12:38] LABS: Cannabinoid Screen Urine Not Detected (Not Detect)
[2025-03-10 12:51] LABS: UACC Culture Trigger YES
[2025-03-10 13:38] VITALS: BP 130/83; PULSE 87; RESP 16; TEMP 36.5; O2SAT 95
== END 2025-03-10 14:10 | disposition home or self-care (01) ==
PROVIDERS: Emergency Provider Emergency Medicine
DX: F19.90 Other psychoactive substance use, unspecified, uncomplicated (principal); R53.83 Other fatigue; F11.90 Opioid use, unspecified, uncomplicated; Z59.00 Homelessness unspecified
CPT/HCPCS: 80307; 81001; 87086; 93005; 99284

== ENCOUNTER → 2025-03-10 11:43 | Outpatient (BNV) | payer MEDICAID, SELFPAY | PROVIDERS: Emergency Provider Emergency Medicine; Visit Provider Internal Medicine Cardiovascular Disease | DX: R53.83 Other fatigue (principal) | CPT/HCPCS: 93010 ==